=== PATIENT | male | born 1955 | race Caucasian/White ===

== ENCOUNTER 2020-07-05 10:15 | Emergency (ER) | payer BC, SELFPAY ==
[2020-07-05 10:26] VITALS: BP 155/94; PULSE 92; RESP 16; TEMP 36.8; O2SAT 99; BMI 28.3
--- NOTE | 2020-07-05 11:08 | ECG_ITS ---
Test Reason : DIZZINESS Blood Pressure : / mmHG Vent. Rate : 078 BPM Atrial Rate : 078 BPM P-R Int : 176 ms QRS Dur : 106 ms QT Int : 410 ms P-R-T Axes : 049 001 007 degrees QTc Int : 467 ms Normal sinus rhythm Nonspecific ST abnormality Inferior leads Abnormal ECG When compared with ECG of 26-JUL-2012 15:07, No significant change was found Referred By: Sandra Saucedo Electronically Signed By:JOYCE BOB MD
--- NOTE | 2020-07-05 11:08 | XR_ITS ---
EXAMINATION: XR CHEST CLINICAL INFORMATION: Lightheaded COMPARISON: Chest radiographs 05/26/2018, 07/26/2012 TECHNIQUE: Portable upright AP x2 views of the chest was obtained. FINDINGS: The heart is normal in size. The vascularity is normal. The lungs are clear and there is no airspace consolidation or definite groundglass opacity. The costophrenic sulci are clear. The hilar and mediastinal contours are unremarkable. No visible acute bony abnormality. XR/XR chest 1V IMPRESSION: Unremarkable examination.
--- NOTE | 2020-07-05 11:28 | ED_ITS ---
HPI - General Adult General Chief complaint: General Medical Stated complaint: DIZZYNESS Time Seen by Provider: 07/05/20 10:57 Source: patient History of Present Illness HPI narrative: 64-year-old male with a past medical history of cirrhosis, arthritis, presenting to ED complaining of sudden onset lightheadedness at 9:30 a.m. with associated upper chest discomfort. Reports since feeling like he was going to pass out. Admits symptoms improved at present, denies lightheadedness now. Denies headache, vision changes, SOB, cough, abdominal pain, nausea / vomi ting, numbness /tingling, falls Onset (ago): hour(s) Related Data Allergies Allergy/AdvReac Type Severity Reaction Status Date / Time codeine [CODEINE] Allergy Unknown NOT SURE , Unverified 05/31/20 16:07 loopy penicillin V Allergy Unknown diarrhea Unverified 05/15/20 00:00 Penicillins [PENICILLINS] Allergy Unknown C-DIFF Unverified 05/31/20 16:07 pseudoephedrine Allergy Unknown HEART Unverified 05/31/20 16:07 [PSEUDOEPHEDRINE] PALPITATIONS BANDAIDS Allergy Unknown RASH Uncoded 05/31/20 16:07 Vicodin Allergy Unknown vomiting Uncoded 04/13/20 00:00 Review of Systems Review of Systems: Constitutional: No Weight loss, No Fever, No Chills ENT/Mouth: No sore throat, No Rhinorrhea Eyes: No Eye Pain, No Vision Changes Cardiovascular: +Chest Pain, No SOB, No Dyspnea on Exertion, No Edema, No Palpitations Respiratory: No Cough, No Sputum, No Wheezing, No Dyspnea Gastrointestinal: No Nausea, No Vomiting, No Diarrhea, No Constipation, No Abdominal pain Musculoskeletal: No joint pain, No Myalgias, No Joint Swelling Skin: No Skin Lesions, No rash Neuro: No Weakness, No Numbness, No Paresthesias, No Loss of Consciousness,+ lightheadedness, No Headache Yes all other systems are reviewed and are negative Neurologic: Denies Sensory deficit (Neuro) [facility] Past Medical History Attestation statement: The following information was validated with the patient. Medical History (Updated 07/05/20 @ 15:53 by LIZ Leahy) Arthritis Cirrhosis Diarrhea Social History Social History Alcohol intake: former Smoking Status: Former smoker Use of substances other than those prescribed or required for medical reasons: No Advance Directives: No Advance Directives Information Provided: No Physical Exam Vital Signs: Vital Signs: Vital Signs Temp Pulse Resp BP Pulse Ox 07/05/20 12:09 85 153/84 H 07/05/20 12:08 88 144/86 H 07/05/20 10:26 98.2 F 92 16 155/94 H 99 Body Mass Index 28.3 Const: General: cooperative, healthy appearing and anxious Orientation/consciousness: patient oriented x3 Limitations: no limitations HENMT: Head: Yes normal to inspection Ears: hearing grossly normal bilaterally General nose exam: Normal external nose present Face and sinus: Yes normal facial exam Eyes: General: appearance normal, both eyes and all related structures EOM: EOMs intact bilaterally Neck: Neck: Yes normal visual inspection and Yes no meningeal signs Resp: Effort & Inspection: normal respiratory effort Auscultation: clear to auscultation bilaterally, no crackles, no rales and no rhonchi Cardio: Rate: regular rate Heart sounds: S1 normal heart sound present and S2 normal heart sound present GI: Inspection: Yes normal to inspection Palpation (GI): Soft to palpation, nontender, no guarding and not rigid Skin: Rashes: no rashes Wounds: no wounds Neuro: General: patient oriented x3, tone normal, moves all extremities, no meningeal signs, no focal motor deficits and CN's II-XI intact bilaterally Gait exam (Neuro): Normal gait present Sensory Exam: No Sensory deficit (Neuro) Extrem: General: Yes normal to inspection Course Course Course Narrative: -1242-- labs unremarkable. Initial troponin 4 > will obtain 3 hour repeat UA negative, CXR unremarkable - orthostatics negative, however patient very symptomatic > additional 500 cc IVF ordered and Meclizine -1256-- ambulate patient in the ED with steady gait. Denied lightheadedness / dizziness. No ataxia - patient requesting COVID-19 testing. Will order prior to DC -1521-- repeat troponin 7.3> greater than 50% delta> cardiology consulted - spoke to Cardiology, Dr. Lewis do not patient with acute ACS. Patient asymptomatic now in the ED. Has been ambulating without symptoms Worrisome signs and symptoms and strict return precautions discussed with patient including very close follow-up with his PCP. Patient verbalized understanding feel safe for discharge home Medical Decision Making [facility] Narrative Medical decision making narrative: 64-year-old male with a past medical history of cirrhosis, arthritis, presenting to ED complaining of sudden onset lightheadedness at 9:30 a.m. with associated upper chest discomfort. On exam VSS, NAD/ anxious, no focal neuro deficits. Concern for ACS versus metabolic/infectious etiology vs anxiety. Low concern for PE/ICH or CVA plan: EKG, labs, UA, orthostatics, CXR, reassess Lab Data Result diagrams: 07/05/20 11:34 07/05/20 11:34 Labs: Lab Results 07/05/20 07/05/20 07/05/20 Range/Units 11:33 11:34 11:34 WBC 5.7 (4.8-10.8) X10*3/uL RBC 5.47 (4.60-5.80) X10*6/uL Hgb 15.3 (14.0-18.0) g/dl Hct 46.4 (42-52) % MCV 84.8 (80-98) fL MCH 28.0 (27.0-33.0) pg MCHC 33.0 (31.0-36.0) g/dl RDW 14.5 (11.0-16.0) % Plt Count 224 (160-400) X10*3/uL MPV 9.2 L (9.4-12.4) fL Immature Gran % (Auto) 0.2 (0.0-0.4) % Neut % (Auto) 70.0 (45-73) % Lymph % (Auto) 18.2 L (20-40) % [place] % (Auto) 9.7 (2-11) % Eos % (Auto) 1.4 (0-4) % Baso % (Auto) 0.5 (0-2) % Lymph # (Auto) 1.0 L (1.2-4.9) X10*3/uL [place] # (Auto) 0.6 (0.1-1.2) X10*3/uL Eos # (Auto) 0.1 (0.0-0.4) X10*3/uL Baso # (Auto) 0.0 (0.0-0.2) X10*3/uL Abs Immat Gran (auto) 0.01 (0.00-0.03) X10*3/uL Absolute Neuts (auto) 4.0 (2.0-8.3) X10*3/uL Absolute Nucleated RBC 0.000 (0.0-0.012) X10*3/uL Nucleated RBC % (auto) 0.0 (0.0-0.2) /100WBC Hold Blue Top Sodium 140 (135-145) mmol/L Potassium 3.8 (3.3-5.1) mmol/l Chloride 105 (96-108) mmol/L Carbon Dioxide 28 (22-29) mmol/L Anion Gap 11 L (12-20) BUN 9 (9-16) mg/dL Creatinine 0.74 (0.5-1.4) mg/dL Estim Creat Clear Calc 115.4 Estimated GFR > 60 Random Glucose 108 (60-115) mg/dL Calcium 8.8 (8.4-10.2) mg/dL Magnesium 2.0 (1.6-2.6) mg/dL Total Bilirubin 0.5 (0.0-1.0) mg/dL Direct Bilirubin 0.2 (0.0-0.5) mg/dL AST 16 (5-37) U/L ALT 12 (0-40) U/L Alkaline Phosphatase 60 (39-117) U/L Troponin I High Sens (<3.5-35.0) ng/L Total Protein 6.9 (6.5-8.0) g/dL Albumin 4.0 (3.5-5.0) g/dL Urine Color YELLOW Urine Appearance CLEAR Urine pH 7.5 (5.0-8.0) Ur Specific [place] 1.015 (1.005-1.025) Urine Protein NEG (NEG-TRACE) MG/DL Urine Glucose (UA) NEG (NEG) MG/DL Urine Ketones NEG (NEG) MG/DL Urine Blood NEG (NEG) Urine Nitrite NEG (NEG) Ur Leukocyte Esterase NEG (NEG) 07/05/20 07/05/20 07/05/20 Range/Units 11:34 11:35 14:29 WBC (4.8-10.8) X10*3/uL RBC (4.60-5.80) X10*6/uL Hgb (14.0-18.0) g/dl Hct (42-52) % MCV (80-98) fL MCH (27.0-33.0) pg MCHC (31.0-36.0) g/dl RDW (11.0-16.0) % Plt Count (160-400) X10*3/uL MPV (9.4-12.4) fL Immature Gran % (Auto) (0.0-0.4) % Neut % (Auto) (45-73) % Lymph % (Auto) (20-40) % [place] % (Auto) (2-11) % Eos % (Auto) (0-4) % Baso % (Auto) (0-2) % Lymph # (Auto) (1.2-4.9) X10*3/uL [place] # (Auto) (0.1-1.2) X10*3/uL Eos # (Auto) (0.0-0.4) X10*3/uL Baso # (Auto) (0.0-0.2) X10*3/uL Abs Immat Gran (auto) (0.00-0.03) X10*3/uL Absolute Neuts (auto) (2.0-8.3) X10*3/uL Absolute Nucleated RBC (0.0-0.012) X10*3/uL Nucleated RBC % (auto) (0.0-0.2) /100WBC Hold Blue Top SEE NOTE Sodium (135-145) mmol/L Potassium (3.3-5.1) mmol/l Chloride (96-108) mmol/L Carbon Dioxide (22-29) mmol/L Anion Gap (12-20) BUN (9-16) mg/dL Creatinine (0.5-1.4) mg/dL Estim Creat Clear Calc Estimated GFR Random Glucose (60-115) mg/dL Calcium (8.4-10.2) mg/dL Magnesium (1.6-2.6) mg/dL Total Bilirubin (0.0-1.0) mg/dL Direct Bilirubin (0.0-0.5) mg/dL AST (5-37) U/L ALT (0-40) U/L Alkaline Phosphatase (39-117) U/L Troponin I High Sens 4.0 7.3 D (<3.5-35.0) ng/L Total Protein (6.5-8.0) g/dL Albumin (3.5-5.0) g/dL Urine Color Urine Appearance Urine pH (5.0-8.0) Ur Specific [place] (1.005-1.025) Urine Protein (NEG-TRACE) MG/DL Urine Glucose (UA) (NEG) MG/DL Urine Ketones (NEG) MG/DL Urine Blood (NEG) Urine Nitrite (NEG) Ur Leukocyte Esterase (NEG) Discharge Plan Discharge Clinical Impression: Light-headedness Patient Disposition: Home, Self-Care Instructions: Near Syncope (ED), Lightheadedness (ED) Additional Instructions: your blood work was reassuring today in the ED Your x-ray was negative You need to follow-up with your primary care doctor if her symptoms persist or worsen, you have constant persistent lightheadedness/dizziness, passing out episodes, chest pain, or shortness of breath you need to return to the ED immediately Referrals: Physician,Unknown [Primary Care Provider] - 2 days
[2020-07-05 11:43] LABS: MANUAL DIFF FLAG NO
[2020-07-05 11:44] LABS: Basophils Percent Auto 0.5 % (0-2); Eosinophils Absolute Auto 0.1 X10*3/uL (0.0-0.4); Eosinophils Percent Auto 1.4 % (0-4); Hematocrit 46.4 % (42-52); Hemoglobin 15.3 g/dl (14.0-18.0); Imm Gran Abs Auto 0.01 X10*3/uL (0.00-0.03); Imm Gran Pct Auto 0.2 % (0.0-0.4); Lymphocytes Percent Auto 18.2 % (20-40); Mean Corpuscular Volume 84.8 fL (80-98); Mean Platelet Volume 9.2 fL (9.4-12.4); Monocytes Absolute Auto 0.6 X10*3/uL (0.1-1.2); Monocytes Percent Auto 9.7 % (2-11); Platelet Count 224 X10*3/uL (160-400); Red Blood Count 5.47 X10*6/uL (4.60-5.80); Red Cell Distribution Width 14.5 % (11.0-16.0); White Blood Count 5.7 X10*3/uL (4.8-10.8)
[2020-07-05 11:48] LABS: Glucose Urine UA NEG (NEG); Leukocyte Esterase Urine NEG (NEG); Nitrite Urine NEG (NEG); PH 7.5 (5.0-8.0); Specific Gravity - Urine 1.015 (1.005-1.025); Urine Blood NEG (NEG); Urine Ketones NEG (NEG); Urine Protein NEG (NEG-TRACE)
[2020-07-05 11:52] LABS: Appearance Urine CLEAR; Color Urine YELLOW
[2020-07-05] MEDS: 0.9 % Sodium Chloride 1,000 ML 999 ML IVCONT (11:53)
[2020-07-05 12:05] LABS: Alanine Aminotransferase 12 U/L (0-40); Alkaline Phosphatase 60 U/L (39-117); Anion Gap 11 (12-20); Aspartate Amino Transferase 16 U/L (5-37); Bilirubin Direct 0.2 mg/dL (0.0-0.5); Bilirubin Total 0.5 mg/dL (0.0-1.0); Blood Urea Nitrogen 9 mg/dL (9-16); Calcium 8.8 mg/dL (8.4-10.2); Carbon Dioxide 28 mmol/L (22-29); Chloride 105 mmol/L (96-108); Creatinine Clr Calc Pharmacy 115.4; Estimated Glomerular Filt Rate > 60; Glucose Random 108 mg/dL (60-115); Potassium 3.8 mmol/l (3.3-5.1); Sodium 140 mmol/L (135-145); Total Protein 6.9 g/dL (6.5-8.0)
[2020-07-05 12:08] VITALS: BP 144/86; PULSE 88
[2020-07-05 12:09] VITALS: BP 153/84; PULSE 85
[2020-07-05] MEDS: 0.9 % Sodium Chloride 500 ML 999 ML IVCONT (12:55)
[2020-07-05] MEDS: Meclizine HCl 25 MG TABLET PO (13:00)
[2020-07-05 15:03] LABS: Troponin-I High Sensitivity 7.3 ng/L (<3.5-35.0)
[2020-07-05 15:56] VITALS: PULSE 75; RESP 18
== END 2020-07-05 16:09 | disposition home or self-care (01) ==
PROVIDERS: Physician Assistant; Emergency Provider Emergency Medicine
DX: R42 Dizziness and giddiness (principal); R07.9 Chest pain, unspecified; Z20.828 Contact with and (suspected) exposure to other viral communicable diseases; Z87.891 Personal history of nicotine dependence; Z79.899 Other long term (current) drug therapy
CPT/HCPCS: 36415; 71045; 80048; 80076; 81003; 83735; 84484; 85025; 87635; 93005; 96360; 99284

== ENCOUNTER → 2020-11-14 14:47 | Outpatient (BNVA) | payer BC, SELFPAY | PROVIDERS: PCP Internal Medicine; Visit Provider Nurse Practitioner ==

== ENCOUNTER 2020-11-23 08:11 | Outpatient (REF) | payer BC, SELFPAY ==
--- NOTE | ~2020-11-23 | US_ITS ---
EXAMINATION: US ABDOMEN COMPLETE CLINICAL INFORMATION: Fatty change of liver, not elsewhere classified. COMPARISON: Ultrasound abdomen complete 04/19/2020. Ultrasound abdomen limited 07/21/2019. TECHNIQUE: Real-time imaging of the abdominal viscera. FINDINGS: PANCREAS: Normal. ABDOMINAL AORTA: The proximal, mid, and distal segments are normal in caliber. INFERIOR VENA CAVA: Visualized portions are normal. LIVER: Normal. The liver is normal in size. The liver contour is normal. Diffuse increased echogenicity.. No focal hepatic lesion. There is no intrahepatic biliary duct dilatation seen. GALLBLADDER: Surgically absent. COMMON BILE DUCT: Normal in caliber measuring 0.6 cm in diameter. RIGHT KIDNEY: Normal. No hydronephrosis. No renal calculi or focal parenchymal lesions. The kidney measures 14.3 cm in maximum dimension. LEFT KIDNEY: Normal. No hydronephrosis. No renal calculi or focal parenchymal lesions. The kidney measures 13.9 cm in maximum dimension. SPLEEN: Normal. The spleen measures 11.5 cm in maximum dimension. FREE FLUID: None. US/US abdomen complete IMPRESSION: 1. Increased hepatic echogenicity suggesting hepatic steatosis. No focal lesions. No intrahepatic biliary duct dilatation. 2. Status postcholecystectomy.
[2020-11-23 11:03] LABS: MANUAL DIFF FLAG NO
[2020-11-23 11:14] LABS: Basophils Absolute Auto 0.1 X10*3/uL (0.0-0.2); Basophils Percent Auto 0.9 % (0-2); Eosinophils Absolute Auto 0.2 X10*3/uL (0.0-0.4); Eosinophils Percent Auto 2.2 % (0-4); Hematocrit 48.1 % (42-52); Hemoglobin 15.7 g/dl (14.0-18.0); Imm Gran Abs Auto 0.01 X10*3/uL (0.00-0.03); Imm Gran Pct Auto 0.1 % (0.0-0.4); Lymphocytes Absolute Auto 1.8 X10*3/uL (1.2-4.9); Lymphocytes Percent Auto 27.6 % (20-40); Mean Corpuscular HGB Conc 32.6 g/dl (31.0-36.0); Mean Corpuscular Hemoglobin 28.3 pg (27.0-33.0); Mean Corpuscular Volume 86.8 fL (80-98); Mean Platelet Volume 9.7 fL (9.4-12.4); Monocytes Absolute Auto 0.6 X10*3/uL (0.1-1.2); Monocytes Percent Auto 8.7 % (2-11); Neutrophils Percent Auto 60.5 % (45-73); Platelet Count 243 X10*3/uL (160-400); Red Blood Count 5.54 X10*6/uL (4.60-5.80); Red Cell Distribution Width 13.9 % (11.0-16.0); White Blood Count 6.7 X10*3/uL (4.8-10.8)
[2020-11-23 11:33] LABS: Alanine Aminotransferase 12 U/L (0-40); Albumin Level 4.2 g/dL (3.5-5.0); Alkaline Phosphatase 62 U/L (39-117); Anion Gap 10 (12-20); Aspartate Amino Transferase 14 U/L (5-37); Bilirubin Total 0.6 mg/dL (0.0-1.0); Blood Urea Nitrogen 11 mg/dL (9-16); Calcium 8.7 mg/dL (8.4-10.2); Carbon Dioxide 31 mmol/L (22-29); Chloride 104 mmol/L (96-108); Cholesterol 153 mg/dL; Estimated Glomerular Filt Rate > 60; Glucose Random 92 mg/dL (60-115); HDL Cholesterol 46 mg/dL; LDL Cholesterol Calculated 100 mg/dl; Potassium 4.2 mmol/L (3.3-5.1); Sodium 141 mmol/L (135-145); Total Protein 7.2 g/dL (6.5-8.0); Triglycerides 39 mg/dL
[2020-11-27 14:17] LABS: Alpha Fetoprotein 1.1 ng/mL (<6.1)
== END 2020-11-23 08:12 | disposition home or self-care (01) ==
LOC: HO.HMGCX 08:11
PROVIDERS: PCP Internal Medicine; Visit Provider Nurse Practitioner
DX: K76.0 Fatty (change of) liver, not elsewhere classified (principal); D12.6 Benign neoplasm of colon, unspecified; F10.11 Alcohol abuse, in remission; I10 Essential (primary) hypertension
CPT/HCPCS: 36415; 76700; 80053; 80061; 82105; 85025

== ENCOUNTER 2020-12-12 08:29 | Day surgery (SDC) | payer BC, SELFPAY ==
[2020-12-06 14:09] VITALS: BMI 29.7
[2020-12-06 14:38] VITALS: BMI 29.8
--- NOTE | 2020-12-11 08:51 | P.CONAN_ITS ---
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) GERD (gastroesophageal reflux disease) (Acute) Essential (primary) hypertension (Acute) Past Medical History Medical History Arthritis Cirrhosis Diarrhea Gastropathy GERD (gastroesophageal reflux disease) Hepatic steatosis History of ETOH abuse Schatzki's ring Family History Family History (Updated 11/14/20 @ 15:03 by MARINO Ny) Father Lung cancer Mother Thyroid condition HTN (hypertension) Lung cancer CVD (cardiovascular disease) Sister Breast cancer Son Pulmonary embolism Blood clot in vein Surgical History Surgical History History of back surgery History of esophagogastroduodenoscopy (EGD) Hx of cholecystectomy Hx of colonoscopy Hx of eye surgery Social History Social History (Updated 11/14/20 @ 15:05 by MARINO Ny) Alcohol intake: former Smoking Status: Never smoker Advance Directives: No Advance Directives Information Provided: No Advance Directives on File: No Meds Allergies Allergy/AdvReac Type Severity Reaction Status Date / Time codeine [CODEINE] Allergy Unknown NOT SURE , Verified 12/06/20 14:35 loopy Penicillins [PENICILLINS] Allergy Unknown C-DIFF Verified 12/06/20 14:35 pseudoephedrine Allergy Unknown HEART Verified 12/06/20 14:35 [PSEUDOEPHEDRINE] PALPITATIONS BANDAIDS Allergy Unknown RASH Uncoded 12/06/20 14:35 Vicodin Allergy Unknown vomiting Uncoded 12/06/20 14:35 Home Medications Medication Instructions Recorded Confirmed Last Taken Type cyclosporine 0.05 % eye drops in a 1 drp OPHTHALMIC (EYE) Q12H 11/14/20 12/06/20 Unknown History dropperette sucralfate 1 gram tablet 1 g PO BID 11/14/20 12/06/20 Unknown History Exam Exam Date and Time: December 11, 2020 0851 Height,Weight and Vital Signs: Height 5 ft 11 in Weight 97 kg Pertinent Lab Results Pertinent Lab Results: Laboratory Tests 11/23/20 11/23/20 08:17 08:17 WBC 6.7 Hgb 15.7 Hct 48.1 Plt Count 243 Sodium 141 Potassium 4.2 Chloride 104 Carbon Dioxide 31 H BUN 11 Creatinine 0.74 Calcium 8.7 Total Bilirubin 0.6 AST 14 ALT 12 Alkaline Phosphatase 62 Total Protein 7.2 Albumin 4.2 Narrative Narrative: EKG 06/2020 Vent. Rate : 078 BPM Atrial Rate : 078 BPM P-R Int : 176 ms QRS Dur : 106 ms QT Int : 410 ms P-R-T Axes : 049 001 007 degrees QTc Int : 467 ms Normal sinus rhythm Nonspecific ST abnormality Inferior leads Abnormal ECG When compared with ECG of 26-JUL-2012 15:07, No significant change was found Assessment and Plan Assessment Anesthesia Assessment: Chart Reviewed Documented by User: Meggan Negro 12/12/20 09:26 [facility] Past Medical History Medical History Arthritis Cirrhosis Diarrhea Gastropathy GERD (gastroesophageal reflux disease) Hepatic steatosis History of ETOH abuse Schatzki's ring Family History Family History (Updated 11/14/20 @ 15:03 by MARINO Ny) Father Lung cancer Mother Thyroid condition HTN (hypertension) Lung cancer CVD (cardiovascular disease) Sister Breast cancer Son Pulmonary embolism Blood clot in vein Surgical History Surgical History History of back surgery History of esophagogastroduodenoscopy (EGD) Hx of cholecystectomy Hx of colonoscopy Hx of eye surgery Social History Social History (Updated 11/14/20 @ 15:05 by MARINO Ny) Alcohol intake: former Smoking Status: Never smoker Advance Directives: No Advance Directives Information Provided: No Advance Directives on File: No Meds Allergies Allergy/AdvReac Type Severity Reaction Status Date / Time codeine [CODEINE] Allergy Unknown NOT SURE , Verified 12/06/20 14:35 loopy Penicillins [PENICILLINS] Allergy Unknown C-DIFF Verified 12/06/20 14:35 pseudoephedrine Allergy Unknown HEART Verified 12/06/20 14:35 [PSEUDOEPHEDRINE] PALPITATIONS BANDAIDS Allergy Unknown RASH Uncoded 12/06/20 14:35 Vicodin Allergy Unknown vomiting Uncoded 12/06/20 14:35 Home Medications Medication Instructions Recorded Confirmed Last Taken Type cyclosporine 0.05 % eye drops in a 1 drp OPHTHALMIC (EYE) Q12H 11/14/20 12/06/20 Unknown History dropperette sucralfate 1 gram tablet 1 g PO BID 11/14/20 12/06/20 Unknown History Exam Airway Mallampati Class: III (Multiple caps, top front) TM Dist: >3cm Neck ROM: Full Heart: RRR Lungs: CTA BL Assessment and Plan Assessment Anesthesia Assessment: Anesthesia Plan Discussed and Chart Reviewed Final Anesthetic Review NPO: Yes (Sip water with meds) ASA Class: III Final Preanesthetic Review: No Changes in Pt Med Stat and Consent Obtained/Reviewed Patient Risk: Intermediate Procedure Risk: Intermediate Anesthetic Plan Anesthetic Plan: MAC: Disposition: Standard PACU
[2020-12-12 08:56] VITALS: BP 149/85; PULSE 94; RESP 16; TEMP 36.2; O2SAT 98
[2020-12-12] MEDS: Lactated Ringers 1,000 ML 50 ML IV (09:07)
--- NOTE | 2020-12-12 09:08 | MHC.SHP ---
Pre-Procedural Eval Section B Chief Complaint: TA of Colon Relevant Family History (Specify if Yes): No Relevant Social History: None Present Medications: see Short Stay Collaborative assessment Medical History: Significant History (Arthritis Cirrhosis Diarrhea Gastropathy GERD (gastroesophageal reflux disease) Hepatic steatosis History of ETOH abuse Schatzki's ring) History of Previous Operations: Relevant previous surgery/procedure and date(s) (History of back surgery History of esophagogastroduodenoscopy (EGD) Hx of cholecystectomy Hx of colonoscopy Hx of eye surgery) Allergies: Allergies Allergy/AdvReac Type Severity Reaction Status Date / Time codeine [CODEINE] Allergy Unknown NOT SURE , Verified 12/06/20 14:35 loopy Penicillins [PENICILLINS] Allergy Unknown C-DIFF Verified 12/06/20 14:35 pseudoephedrine Allergy Unknown HEART Verified 12/06/20 14:35 [PSEUDOEPHEDRINE] PALPITATIONS BANDAIDS Allergy Unknown RASH Uncoded 12/06/20 14:35 Vicodin Allergy Unknown vomiting Uncoded 12/06/20 14:35 Review of Systems Sugical H&P ROS: Negative: Constitution, Cardiovascular, Respiratory, Neurological, Psychiatric, Hem-Onc, Allergic/Immunologic, Gastrointestinal, Genitourinary, Musculoskeletal, Integumentary, Endocrine and Eyes/Ears/Nose/Throat Exam Surgical H&P Exam: Normal: HEENT, Normal: Heart, Normal: Lungs, Normal: Extremities, Normal: Abdomen, Normal: Skin and Normal: Neurological Plan I have reviewed the history and physical and performed a pertinent physical examination on my patient. No changes have occurred unless specified.
--- NOTE | 2020-12-12 09:19 | PM.OP ---
Brief Operative Note Date of Service: 12/12/20 Pre-op diagnosis: hx of polyps Post-op diagnosis: same Procedure: see op note Surgeon: Nicolas Kan MD Anesthesia: MAC Estimated blood loss (mL): 0 Condition: stable Disposition: PACU
--- NOTE | 2020-12-12 09:20 | P.OP_ITS ---
Operative Note Operative Note Date of Service: 12/12/20 Narrative: Operative Information Procedure Description: Colonoscopy COLONOSCOPY Instrument: Olympus variable stiffness ADULT scope 190L Colonoscopy Monitoring: Vital signs and clinical assessment, continuous EKG monitoring, Pulse oximetry, Carbon Dioxide monitoring and blood pressure monitoring were done throughout the procedure. Colon withdrawal time was 15 minutes. Procedure: The patient was placed in the left lateral decubitis position and pre-procedure medications were administered. After a digital rectal examination of the ano-rectum, the video colonoscope was inserted into the rectum and advanced through the colon to the cecum/TI. The colonoscope was slowly withdrawn in a retrograde panoramic fashion and the colon mucosa was carefully examined including a retroflexed view of the rectum. Findings and interventions are described below. Procedure Difficulty:easy Findings: Terminal Ileum-normal Cecum: 5-7 mm sessile polyp removed with biopsy Ascending Colon: x 2 sessile polyps 8-9 mm removed with forceps Transverse Colon - x 3 sessile polyps, 8-12 mm, x 1 removed with cold snare and 2 removed with forceps Descending Colon: 8-10 mm sessile polyp removed with cold snare Sigmoid Colon: diverticulosis, mild Rectum: Retroflexion with small to moderate sized internal hemorrhoids, grade I, 7-8 mm sessile polyp removed with forceps Anorectum - normal Colon preparation: [place] Bowel Preparation Scale Right colon; 2 Transverse colon: 3 Left colon; 3 (0 = Unprepared colon segment with mucosa not seen due to solid stool that cannot be cleared. 1 = Portion of mucosa of the colon segment seen, but other areas of the colon segment not well seen due to staining, residual stool and/or opaque liquid. 2 = Minor amount of residual staining, small fragments of stool and/or opaque liquid, but mucosa of colon segment seen well. 3 = Entire mucosa of colon segment seen well with no residual staining, small fragments of stool or opaque liquid) Impression and Post Procedure Diagnosis: polyps internal hemorrhoids diverticular disease Plan: High fiber diet leaflet Avoid straining at stool, epsom salts and sitz bath, anusol supps or cream Repeat Colonoscopy in 2-3 years or earlier if clinically indicated Above findings were reviewed with the patient and relevant handouts were provided if indicated.
[2020-12-12 10:11] VITALS: BP 101/60; PULSE 70; RESP 16; TEMP 36.4; O2SAT 92
[2020-12-12 10:16] VITALS: O2SAT 91
[2020-12-12 10:26] VITALS: BP 100/59; PULSE 90; RESP 18; O2SAT 96
[2020-12-12 10:38] VITALS: BP 135/91; PULSE 84; RESP 20; TEMP 37.6; O2SAT 96
== END 2020-12-12 11:10 | disposition home or self-care (01) ==
PROVIDERS: PCP Internal Medicine; Visit Provider Internal Medicine Gastroenterology
PROC: 0DJD8ZZ Inspection of Lower Intestinal Tract, Via Natural or Artificial Opening Endoscopic (ICD-10-PCS; CPT 45378; principal; 2020-12-12 11:40)
DX: Z12.11 Encounter for screening for malignant neoplasm of colon (principal); Z86.010 Personal history of colon polyps; D12.0 Benign neoplasm of cecum; D12.2 Benign neoplasm of ascending colon; D12.3 Benign neoplasm of transverse colon; D12.4 Benign neoplasm of descending colon; K62.1 Rectal polyp; K57.30 Diverticulosis of large intestine without perforation or abscess without bleeding; K64.0 First degree hemorrhoids; K21.9 Gastro-esophageal reflux disease without esophagitis; K74.60 Unspecified cirrhosis of liver; K90.89 Other intestinal malabsorption; K31.9 Disease of stomach and duodenum, unspecified; F10.11 Alcohol abuse, in remission; K70.30 Alcoholic cirrhosis of liver without ascites; K76.0 Fatty (change of) liver, not elsewhere classified; Z79.899 Other long term (current) drug therapy; Z88.0 Allergy status to penicillin; Z88.8 Allergy status to other drugs, medicaments and biological substances; Z90.49 Acquired absence of other specified parts of digestive tract
CPT/HCPCS: 45385; 45380; 88305

== ENCOUNTER → 2021-01-09 11:18 | Outpatient (BNVA) | payer BC, SELFPAY | PROVIDERS: PCP Internal Medicine; Visit Provider Nurse Practitioner ==

== ENCOUNTER → 2021-02-19 08:55 | Outpatient (BNVA) | payer BC, SELFPAY | PROVIDERS: PCP Internal Medicine; Referring Provider Internal Medicine; Visit Provider Internal Medicine Gastroenterology ==

== ENCOUNTER 2021-05-14 19:23 | Emergency (ER) | payer BC, SELFPAY ==
[2021-05-14 19:25] VITALS: BP 184/83; PULSE 76; RESP 16; TEMP 36.8; O2SAT 94; BMI 29.8
--- NOTE | 2021-05-14 19:54 | PC.NURSE ---
spider bite to left index finger. brusing noted. states baby spiders were on window when he was lifting it.
--- NOTE | 2021-05-14 21:13 | ED_ITS ---
HPI - Animal Bite General Chief Complaint: Animal Bite Stated Complaint: spider bite Time Seen by Provider: 05/14/21 20:48 Source: patient Mode of arrival: ambulatory History of Present Illness HPI narrative: 65-year-old male with a past medical history of arthritis, cirrhosis, diarrhea, GERD, presenting to the ED complaining of spider bite to left index finger s/p picking up something and multiple small spider coming out from underneath it around 2:30 p.m. reports pain to index finger and erythema/bruising. Also reports paresthesias. Denies weakness, fever, chills Patient did not get good visual avoid spider looked like MD complaint: animal bite Related Data Home Medications Medication Instructions Recorded Confirmed cyclosporine 0.05 % eye drops in a 1 drp OPHTHALMIC (EYE) Q12H 11/14/20 02/19/21 dropperette (Restasis) sucralfate 1 gram tablet 1 g PO BID 11/14/20 02/19/21 fluoride (sodium) 1.1 % dental gel DENTAL 02/19/21 02/19/21 mupirocin 2 % topical ointment TOPICAL BID 02/19/21 02/19/21 tadalafil 5 mg tablet 5 mg PO DAILY 02/19/21 02/19/21 Previous Rx's Medication Instructions Recorded bisacodyl 5 mg tablet,delayed 10 mg PO BEDTIME 2 Days #4 tab 11/14/20 release (Dulcolax (bisacodyl)) pantoprazole 40 mg tablet,delayed 40 mg PO BID 30 Days #60 tab 11/14/20 release polyethylene glycol 3350 17 238 g PO ONCE 1 Days #238 g 11/14/20 gram/dose oral powder (Miralax) metoprolol succinate 50 mg 50 mg PO DAILY #90 tab 12/01/20 tablet,extended release 24 hr fluticasone furoate 27.5 2 spray INTRANASAL DAILY #47.4 ml 02/19/21 mcg/actuation nasal spray,suspension (Flonase Sensimist) loratadine 10 mg tablet (Claritin) 10 mg PO DAILY #60 tab 02/19/21 lisinopril 20 mg tablet 20 mg PO BID #180 tab 03/11/21 amlodipine 5 mg tablet 5 mg PO DAILY #90 tab 04/18/21 amlodipine 5 mg tablet 5 mg PO DAILY #14 tab 04/19/21 doxycycline hyclate 100 mg tablet 100 mg PO BID 7 Days #14 tab 05/14/21 Allergies Allergy/AdvReac Type Severity Reaction Status Date / Time codeine [CODEINE] Allergy Unknown NOT SURE , Verified 02/19/21 09:05 loopy Penicillins [PENICILLINS] Allergy Unknown C-DIFF Verified 02/19/21 09:05 pseudoephedrine Allergy Unknown HEART Verified 02/19/21 09:05 [PSEUDOEPHEDRINE] PALPITATIONS BANDAIDS Allergy Unknown RASH Uncoded 12/06/20 14:35 Vicodin Allergy Unknown vomiting Uncoded 12/06/20 14:35 Review of Systems Review of Systems: Constitutional: No Fever, No Chills ENT/Mouth: No Ear Pain, No Nasal Congestion, No sore throat, No Rhinorrhea, No Swallowing Difficulty Cardiovascular: No Chest Pain, No SOB Respiratory: No Cough, No Sputum, No Wheezing Gastrointestinal: No Nausea, No Vomiting, No Abdominal pain Musculoskeletal: + joint pain, No Myalgias, No Joint Swelling Skin: + Skin Lesions, No rash Neuro: No Weakness, No Numbness, No Paresthesias Yes all other systems are reviewed and are negative [facility] Past Medical History Attestation statement: The following information was validated with the patient. Medical History Arthritis Cirrhosis Diarrhea Gastropathy GERD (gastroesophageal reflux disease) Hepatic steatosis History of ETOH abuse Schatzki's ring Surgical History History of back surgery History of esophagogastroduodenoscopy (EGD) Hx of cholecystectomy Hx of colonoscopy Hx of eye surgery Family History Family History Father Lung cancer Mother Thyroid condition HTN (hypertension) Lung cancer CVD (cardiovascular disease) Sister Breast cancer Son Pulmonary embolism Blood clot in vein Social History Social History Alcohol intake: former Advance Directives: No Advance Directives Information Provided: Yes Physical Exam Vital Signs: Vital Signs: Last Vital Signs Temp 98.2 F 05/14/21 19:25 Pulse 76 05/14/21 19:25 Resp 16 05/14/21 19:25 BP 184/83 H 05/14/21 19:25 Pulse Ox 94 05/14/21 19:25 Body Mass Index 29.8 Const: General: cooperative and healthy appearing Orientation/consciousness: patient oriented x3 Limitations: no limitations HENMT: Head: Yes normal to inspection Ears: hearing grossly normal bilaterally General nose exam: Normal external nose present Face and si nus: Yes normal facial exam Eyes: General: appearance normal, both eyes and all related structures EOM: EOMs intact bilaterally Neck: Neck: Yes normal visual inspection Resp: Effort & Inspection: normal respiratory effort and no respiratory distress Cardio: Rate: regular rate Heart sounds: S1 normal heart sound present and S2 normal heart sound present Skin: General skin exam: no fluctuance Neuro: General: patient oriented x3 Gait exam (Neuro): Normal gait present Extrem: Other: Refer to image above. Ecchymotic/erythematous area noted to palmar aspect of left index finger. No warmth. No fluctuance/induration. No streaking. FROM intact to all digits/hand. Finger to thumb opposition intact. Lesion is not circumferential MDM - Animal Bite MDM Narrative Medical decision making narrative: 65-year-old male with a past medical history of arthritis, cirrhosis, diarrhea, GERD, presenting to the ED complaining of spider bite to left index finger s/p picking up something and multiple small spider coming out from underneath it around 2:30 p.m. On exam VSS, NAD/well- appearing, physical exam as above. Concern for spider bite/early cellulitis. Unlikely abscess at this time Plan: Doxycycline, strict return precautions discussed Discharge Plan Discharge Clinical Impression: Spider bite Qualifiers: Encounter type: initial encounter Injury intent: accidental or unintentional Qualified Code(s): T63.301A - Toxic effect of unspecified spider venom, accidental (unintentional), initial encounter Patient Disposition: Home, Self-Care Additional Instructions: Doxycycline as an antibiotic, please take as prescribed Keep a close eye on the area if it is spreading, you have red streaking, there is drainage from the area, or you have fever, or the center turns black please return to the ED immediately Prescriptions: New doxycycline hyclate 100 mg tablet 100 mg PO BID 7 Days Qty: 14 RF: 0 No Action metoprolol succinate 50 mg tablet extended release 24 hr 50 mg PO DAILY Qty: 90 RF: 3 lisinopril 20 mg tablet 20 mg PO BID Qty: 180 RF: 3 amlodipine 5 mg tablet 5 mg PO DAILY Qty: 90 RF: 3 amlodipine 5 mg tablet 5 mg PO DAILY Qty: 14 RF: 0 sucralfate 1 gram tablet 1 g PO BID RF: 0 Restasis 0.05 % dropperette 1 drp ophthalmic (eye) Q12H RF: 0 pantoprazole 40 mg tablet,delayed release (DR/EC) 40 mg PO BID 30 Days Qty: 60 RF: 6 polyethylene glycol 3350 [Miralax] 17 gram/dose powder 238 g PO ONCE 1 Days Qty: 238 RF: 0 bisacodyl [Dulcolax (bisacodyl)] 5 mg tablet,delayed release (DR/EC) 10 mg PO BEDTIME 2 Days Qty: 4 RF: 0 tadalafil 5 mg tablet 5 mg PO DAILY RF: 0 mupirocin 2 % ointment topical BID RF: 0 fluoride (sodium) 1.1 % gel dental RF: 0 Flonase Sensimist 27.5 mcg/actuation spray,suspension 2 spray intranasal DAILY Qty: 47.4 RF: 0 loratadine [Claritin] 10 mg tablet 10 mg PO DAILY Qty: 60 RF: 2 Referrals: Clari Duong MD [Primary Care Provider] - 3 days Interventions: ED Discharge Assessment Last Done: 05/14/21 21:39 Discharge Date/Time: 05/14/21 21:40
== END 2021-05-14 21:40 | disposition home or self-care (01) ==
PROVIDERS: Emergency Provider Internal Medicine; PCP Internal Medicine
DX: T63.301A Toxic effect of unspecified spider venom, accidental (unintentional), initial encounter (principal); Y99.9 Unspecified external cause status; I10 Essential (primary) hypertension
CPT/HCPCS: 99283

== ENCOUNTER → 2021-07-08 09:31 | Outpatient (BNVA) | payer BC, SELFPAY | PROVIDERS: PCP Internal Medicine; Visit Provider Nurse Practitioner ==

== ENCOUNTER 2021-09-27 10:07 | Outpatient (REF) | payer MEDICARE, SELFPAY ==
[2021-09-27 10:40] LABS: Binax Internal Control QC Valid; Binax Now Covid-19 Ag Positive (Negative); Binax Performed by: HO.BONILM
== END 2021-09-27 10:08 | disposition home or self-care (01) ==
LOC: HO.HMGCLDS 10:07
PROVIDERS: Visit Provider Nurse Practitioner Family
DX: Z13.89 Encounter for screening for other disorder (principal)

== ENCOUNTER 2021-11-26 11:33 | Outpatient (REF) | payer OTHER, SELFPAY ==
--- NOTE | ~2021-11-26 | US_ITS ---
EXAMINATION: US ABDOMEN LIMITED CLINICAL INFORMATION: Fatty change of liver, not elsewhere classified. COMPARISON: Ultrasound abdomen complete 11/23/2020 and 04/19/2020. TECHNIQUE: Real-time imaging of the right upper quadrant abdominal viscera. FINDINGS: PANCREAS: Not well visualized due to bowel gas LIVER: The liver is normal in size. The liver contour is normal. Liver echotexture is increased. No focal hepatic lesion. There is no intrahepatic biliary duct dilatation seen. GALLBLADDER: Surgically absent. COMMON BILE DUCT: Normal in caliber measuring 0.3 cm in diameter. RIGHT KIDNEY: Normal. No hydronephrosis. No renal calculi or focal parenchymal lesions. The kidney measures 14.1 cm in maximum dimension. FREE FLUID: None. US/US abdomen limited IMPRESSION: Echogenic liver probably representing fatty infiltration. Limited visualization of the pancreas.
== END 2021-11-26 11:34 | disposition home or self-care (01) ==
LOC: HO.US 11:33
PROVIDERS: PCP Internal Medicine; Visit Provider Nurse Practitioner
DX: K76.0 Fatty (change of) liver, not elsewhere classified (principal)
CPT/HCPCS: 76705

== ENCOUNTER 2021-12-02 07:56 | Outpatient (REF) | payer OTHER, SELFPAY ==
[2021-12-02 11:53] LABS: Hematocrit 50.2 % (42.0-52.0); Hemoglobin 16.5 g/dl (14.0-18.0); Mean Corpuscular HGB Conc 32.9 g/dl (31.0-36.0); Mean Corpuscular Hemoglobin 28.9 pg (27.0-33.0); Mean Corpuscular Volume 87.9 fL (80.0-98.0); Mean Platelet Volume 9.5 fL (9.4-12.4); Platelet Count 255 X10*3/uL (160-400); Red Blood Count 5.71 X10*6/uL (4.60-5.80); Red Cell Distribution Width 13.9 % (11.0-16.0); White Blood Count 7.4 X10*3/uL (4.8-10.8)
[2021-12-02 12:15] LABS: Alanine Aminotransferase 14 U/L (0-40); Albumin Level 4.2 g/dL (3.5-5.0); Alkaline Phosphatase 66 U/L (39-117); Anion Gap 11 (12-20); Aspartate Amino Transferase 16 U/L (5-37); Bilirubin Direct 0.3 mg/dL (0.0-0.5); Bilirubin Total 0.8 mg/dL (0.0-1.0); Blood Urea Nitrogen 9 mg/dL (9-16); Calcium 9.5 mg/dL (8.4-10.2); Carbon Dioxide 30 mmol/L (22-29); Chloride 105 mmol/L (96-108); Cholesterol 149 mg/dL; Estimated Glomerular Filt Rate > 60; Glucose Fasting 101 mg/dL (60-99); HDL Cholesterol 47 mg/dL; LDL Cholesterol Calculated 91 mg/dl; Sodium 141 mmol/L (135-145); Total Protein 7.5 g/dL (6.5-8.0); Triglycerides 57 mg/dL
[2021-12-09 11:21] LABS: Alpha Fetoprotein 1.7 ng/mL (<6.1)
== END 2021-12-02 07:57 | disposition home or self-care (01) ==
LOC: HO.HMGCLDS 07:56
PROVIDERS: Absent Provider Nurse Practitioner; PCP Internal Medicine; Visit Provider Internal Medicine
DX: K76.0 Fatty (change of) liver, not elsewhere classified (principal); I10 Essential (primary) hypertension
CPT/HCPCS: 36415; 80053; 80061; 80076; 82105; 82248; 85027

== ENCOUNTER → 2022-01-10 09:28 | Outpatient (BNVA) | payer OTHER, SELFPAY | PROVIDERS: PCP Internal Medicine; Visit Provider Nurse Practitioner | DX: Z13.89 Encounter for screening for other disorder (principal) ==

== ENCOUNTER 2022-07-11 14:36 | Outpatient (REF) | payer OTHER, SELFPAY ==
[2022-07-11 17:15] LABS: Alanine Aminotransferase 12 U/L (0-40); Albumin Level 4.2 g/dL (3.5-5.0); Alkaline Phosphatase 68 U/L (39-117); Aspartate Amino Transferase 18 U/L (5-37); Bilirubin Direct 0.3 mg/dL (0.0-0.5); Bilirubin Total 0.7 mg/dL (0.0-1.0); Total Protein 7.2 g/dL (6.5-8.0)
[2022-07-16 13:47] LABS: Alpha Fetoprotein 1.4 ng/mL (<6.1)
== END 2022-07-11 14:37 | disposition home or self-care (01) ==
LOC: HO.HMGCLDS 14:36
PROVIDERS: PCP Internal Medicine; Visit Provider Nurse Practitioner
DX: K76.0 Fatty (change of) liver, not elsewhere classified (principal)
CPT/HCPCS: 36415; 80076; 82105

== ENCOUNTER 2022-08-04 14:05 | Outpatient (REF) | payer OTHER, SELFPAY ==
--- NOTE | ~2022-08-04 | US_ITS ---
EXAMINATION: US ABDOMEN COMPLETE CLINICAL INFORMATION: Fatty change of liver, not elsewhere classified. COMPARISON: Limited abdominal ultrasound 11/26/2021. Ultrasound abdomen complete 11/23/2020. Limited exam due to bowel gas. TECHNIQUE: Real-time imaging of the abdominal viscera. FINDINGS: PANCREAS: Not well visualized due to bowel gas. ABDOMINAL AORTA: The distal abdominal aorta is normal in caliber. Proximal and mid abdominal aorta are not well visualized due to bowel gas. INFERIOR VENA CAVA: Not well visualized. LIVER: The liver is normal in size. The liver contour is normal. Liver echotexture is increased. No focal hepatic lesion. There is no intrahepatic biliary duct dilatation seen. GALLBLADDER: Surgically absent. COMMON BILE DUCT: Normal in caliber measuring 0.7 cm in diameter. RIGHT KIDNEY: Normal. No hydronephrosis. No renal calculi or focal parenchymal lesions. The kidney measures 13.4 cm in maximum dimension. LEFT KIDNEY: Normal. No hydronephrosis. No renal calculi or focal parenchymal lesions. The kidney measures 13.1 cm in maximum dimension. SPLEEN: Normal. The spleen measures 11.1 cm in maximum dimension. FREE FLUID: None. US/US abdomen complete IMPRESSION: Limited exam. Echogenic liver probably representing fatty infiltration.
== END 2022-08-04 14:06 | disposition home or self-care (01) ==
LOC: HO.HMGCX 14:05
PROVIDERS: PCP Internal Medicine; Visit Provider Nurse Practitioner
DX: K76.0 Fatty (change of) liver, not elsewhere classified (principal); N20.0 Calculus of kidney
CPT/HCPCS: 76700

== ENCOUNTER → 2022-11-27 09:43 | Day surgery (SDC) | payer MEDICARE, SELFPAY ==
[2022-11-24 12:37] VITALS: BMI 29.8
--- NOTE | 2022-11-26 13:02 | P.CONAN_ITS ---
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) Dysphagia (Acute) Cellulitis of face (Acute) Nephrolithiasis (Acute) GERD (gastroesophageal reflux disease) (Acute) Gastropathy (Acute) Schatzki's ring (Acute) Hepatic steatosis (Acute) History of ETOH abuse (Acute) Past Medical History Medical History (Updated 11/25/22 @ 07:42 by MARIELA Zendejas) Arthritis Cirrhosis Diarrhea Gastropathy GERD (gastroesophageal reflux disease) Hepatic steatosis History of COVID-19 History of ETOH abuse Schatzki's ring Family History Family History Father Lung cancer Mother Thyroid condition HTN (hypertension) Lung cancer CVD (cardiovascular disease) Sister Breast cancer Son Pulmonary embolism Blood clot in vein Surgical History Surgical History (Updated 11/24/22 @ 12:34 by Corina Thompson RN) History of back surgery History of esophagogastroduodenoscopy (EGD) Hx of cholecystectomy Hx of colonoscopy Hx of eye surgery Social History Social History Housing: House Alcohol intake: former Patient Tobacco Use Status: Never used Tobacco e-Cigarette/Vaping Use: Never Used Current occupational status: retired Cognitive needs: No Hearing needs: No Vision needs: No Meds Allergies Allergy/AdvReac Type Severity Reaction Status Date / Time codeine [CODEINE] Allergy Intermediate loopy Verified 11/24/22 12:33 feeling hydrocodone Allergy Intermediate Vomiting Verified 11/24/22 12:32 pseudoephedrine Allergy Intermediate HEART Verified 11/24/22 12:33 [PSEUDOEPHEDRINE] PALPITATIONS Penicillins [PENICILLINS] AdvReac Intermediate C-DIFF Verified 11/24/22 12:33 diarrhea BANDAIDS Allergy Intermediate RASH Uncoded 11/24/22 12:33 Home Medications Medication Instructions Recorded Confirmed Last Taken Type cyclosporine 0.05 % eye drops in a 1 drp ophthalmic (eye) Q12H 11/14/20 06/23/22 Unknown History dropperette (Restasis) tadalafil 5 mg tablet 5 mg PO DAILY 02/19/21 11/24/22 Unknown History Exam Exam Date and Time: November 26, 2022 1302 Height,Weight and Vital Signs: Height 6 ft Weight 99.79 kg Pertinent Lab Results Pertinent Lab Results: Laboratory Tests 07/11/22 14:40 Total Bilirubin 0.7 Direct Bilirubin 0.3 AST 18 ALT 12 Alkaline Phosphatase 68 Total Protein 7.2 Albumin 4.2 Assessment and Plan Assessment Anesthesia Assessment: Chart Reviewed
[2022-11-27 10:06] VITALS: BP 172/77; PULSE 112; RESP 18; TEMP 36.9; O2SAT 98; BMI 29.8
[2022-11-27 10:13] VITALS: BMI 29.8
--- NOTE | 2022-11-27 10:31 | ECG_ITS ---
Test Reason : preop tachy Blood Pressure : / mmHG Vent. Rate : 141 BPM Atrial Rate : 000 BPM P-R Int : 000 ms QRS Dur : 088 ms QT Int : 274 ms P-R-T Axes : 000 002 -37 degrees QTc Int : 419 ms Atrial fibrillation with rapid ventricular response Inferior infarct , age undetermined Abnormal ECG When compared with ECG of 05-JUL-2020 11:15, Atrial fibrillation has replaced Sinus rhythm Vent. rate has increased BY 63 BPM Inferior infarct is now Present T wave inversion more evident in Inferior leads Referred By: Mp Gutierrez Electronically Signed By:Raheem Lewis
--- NOTE | 2022-11-27 10:38 | PC.NURSE ---
pt with irregular new onset of afib 130's-170's , palpitations in abdomen, sob with bending. [address] lawson aware.
--- NOTE | 2022-11-27 10:40 | SUR.OPER ---
confirmed afib with rvr. dr. jruado aware. pt denied hx. early october had syncope at dentist. HR now 150's - 170's, rburst to 180 x1 still with palpitations in abdomen, dr. lawson with bedside eval. bp automated with longer time cycling secondary to irregular, manual bp 152/88 @ `1055
--- NOTE | 2022-11-27 11:01 | PC.NURSE ---
pt c/o of massive reflux - repositioned to left side per pt request. hob elevated. pt states that he feels relaxed in this position. updated Dr. Kan again. to given report to ER doc.
--- NOTE | 2022-11-27 11:08 | PC.NURSE ---
connected to portable monitor for transport to ED. Dr. Kan states at bedside at this time for evaluation. Dr. Kan going to ER to give report.
--- NOTE | 2022-11-27 11:43 | PC.NURSE ---
11:30 s/p dr. jurado report to ed emerita & rn, pt transported to ed 15, report to [facility] on monitor en route
== END ==
PROVIDERS: PCP Internal Medicine; Visit Provider Internal Medicine Gastroenterology
DX: Z12.11 Encounter for screening for malignant neoplasm of colon (principal); Z53.09 Procedure and treatment not carried out because of other contraindication; I48.91 Unspecified atrial fibrillation; K21.9 Gastro-esophageal reflux disease without esophagitis
CPT/HCPCS: 93005

== ENCOUNTER 2022-11-27 11:19 | Inpatient (IN) | payer MEDICARE, SELFPAY ==
[2022-11-27 11:38] VITALS: BP 152/105; PULSE 131; RESP 16; TEMP 37.3; O2SAT 95; BMI 29.8
--- NOTE | 2022-11-27 11:41 | ECG_ITS ---
Test Reason : TACHYCARDIA Blood Pressure : / mmHG Vent. Rate : 123 BPM Atrial Rate : 000 BPM P-R Int : 000 ms QRS Dur : 092 ms QT Int : 294 ms P-R-T Axes : 000 002 -28 degrees QTc Int : 420 ms Atrial fibrillation with rapid ventricular response Inferior infarct (cited on or before 27-NOV-2022) Abnormal ECG When compared with ECG of 27-NOV-2022 10:35, No significant change was found Referred By: Generic ED Physician Electronically Signed By:Raheem Lewis
--- NOTE | 2022-11-27 11:51 | ED.ARRPALP ---
HPI - Arrhythmia/Palpitations General Chief Complaint: Arrhythmia/Palpitations Stated Complaint: Rapid Afib Time Seen by Provider: 11/27/22 11:45 Source: patient Mode of arrival: ambulatory Limitations: no limitations History of Present Illness HPI narrative: 67-year-old male with history of hypertension presents with new onset atrial fibrillation. Patient was in the process of having an upper lower endoscopy that was routine. Prior to procedure, he was noted to be in tachycardia and it appeared to be in atrial fibrillation. Denies any chest pain, palpitations, lightheadedness, shortness of breath. The reported 2 episodes of syncope in the past. Those are not associated with chest pain or palpitations at that time. Patient is otherwise asymptomatic. There is no clear relieving or exacerbating symptoms. Patient denies a history of atrial fibrillation. Related Data Home Medications Medication Instructions Recorded Confirmed cyclosporine 0.05 % eye drops in a 1 drp ophthalmic (eye) Q12H 11/14/20 06/23/22 dropperette (Restasis) tadalafil 5 mg tablet 5 mg PO DAILY 02/19/21 11/24/22 Previous Rx's Medication Instructions Recorded loratadine 10 mg tablet (Claritin) 10 mg PO DAILY #60 tabs 02/19/21 lisinopril 20 mg tablet 20 mg PO BID #180 tabs 12/26/21 metoprolol succinate 50 mg 50 mg PO DAILY #90 tabs 12/26/21 tablet,extended release 24 hr amlodipine 5 mg tablet 5 mg PO DAILY #90 tabs 01/14/22 peg 3350-electrolytes 236 240 ml PO Q10M 1 day #4,000 mL 07/11/22 gram-22.74 gram-6.74 gram-5.86 gram solution (Golytely) sucralfate 1 gram tablet 1 g PO BID #60 tabs 10/14/22 pantoprazole 40 mg tablet,delayed 40 mg PO BID #60 tabs 11/21/22 release Allergies Allergy/AdvReac Type Severity Reaction Status Date / Time codeine [CODEINE] Allergy Intermediate loopy Verified 11/24/22 12:33 feeling hydrocodone Allergy Intermediate Vomiting Verified 11/24/22 12:32 pseudoephedrine Allergy Intermediate HEART Verified 11/24/22 12:33 [PSEUDOEPHEDRINE] PALPITATIONS Penicillins [PENICILLINS] AdvReac Intermediate C-DIFF Verified 11/24/22 12:33 diarrhea BANDAIDS Allergy Intermediate RASH Uncoded 11/24/22 12:33 REPLACED BY [facility] Past Medical History Medical History Arthritis Cirrhosis Diarrhea Gastropathy GERD (gastroesophageal reflux disease) Hepatic steatosis History of COVID-19 History of ETOH abuse Schatzki's ring Surgical History History of back surgery History of esophagogastroduodenoscopy (EGD) Hx of cholecystectomy Hx of colonoscopy Hx of eye surgery Family History Family History Father Lung cancer Mother Thyroid condition HTN (hypertension) Lung cancer CVD (cardiovascular disease) Sister Breast cancer Son Pulmonary embolism Blood clot in vein Social History Social History Housing: House Alcohol intake: former Patient Tobacco Use Status: Never used Tobacco e-Cigarette/Vaping Use: Never Used Advance Directives: No Advance Directives Information Provided: Yes Current occupational status: retired Cognitive needs: No Hearing needs: No Vision needs: No Physical Exam Vital Signs: Vital Signs: Last Vital Signs Temp 99.1 F 11/27/22 11:38 Pulse 131 H 11/27/22 11:38 Resp 16 11/27/22 11:38 BP 152/105 H 11/27/22 11:38 Pulse Ox 95 11/27/22 11:38 O2 Del Method 11/27/22 11:38 BMI result Body Mass Index 29.8 GEN: Well developed, no acute distress, alert, oriented HEENT: Normocephalic, atraumatic, normal external ears, nose appears normal, no oropharyngeal edema or exudates Eyes: Normal to appearance Neck: Supple, no lymphadenopathy Respiratory: Talks in complete sentences, no respiratory distress, clear to auscultation bilaterally Cardiovascular: Tachycardic, irregularly irregular Abdomen: Soft, nontender, nondistended, no guarding, no rebound Back: No CVA tenderness Extremities: No clubbing cyanosis or edema Neurologic: No focal neurologic deficits, cranial nerves 2-12 intact, strength is 5/5 bilaterally, gait normal Skin: No rash Course Course Course Narrative: 59-year-old male presents with possible new onset atrial fibrillation. Patient is otherwise asymptomatic and hemodynamically stable. Patient will have complete workup. Will attempt to rate control and potentially start patient on anticoagulation. We will assess a CHADS2 score as well. Patient will likely need referral to a ribbing machine operator whether that is inpatient or outpatient. Reevaluation(s) Reevaluation #1: A rate remains tachycardic. Will give intravenous diltiazem. Should this work, will add oral diltiazem as well. Chads 2 score is 1. A tape patient is a potential discharge with outpatient follow-up assuming patient can become appropriately rate controlled. Time: 12:47 Reevaluation #2: Radiology responded, recommended admission for rate control. Anticoagulation questions can be discussed at that time. Time: 14:13 Consultations Consultation #1: Sent tigertext to Dr. Lewis. Awaiting to hear recommendations. It might be best for patient to be admitted on IV heparin given significant history of epistaxis, MIKHAIL with cardioversion. Awaiting recs from Dr. Lewis. IN was discussed with the patient. Time: 13:52 Medications Administered Discontinued Medications Generic Name Dose Route Start Last Admin Trade Name Freq PRN Reason Stop Dose Admin Diltiazem HCl 15 mg 11/27/22 12:45 11/27/22 13:10 Diltiazem Hcl 50 Mg/10 Ml Vial IVPUSH 11/27/22 12:46 15 mg STAT STA Administration Medical Decision Making Medical Decision Making [facility] Narrative: 67-year-old male presents with new onset atrial fibrillation. Patient will have complete workup in the emergency department. Will determine an appropriate disposition for patient based on chads 2 score consultation with Cardiology. Patient may warrant an inpatient workup as well including echocardiogram cardiac monitoring. This is especially so if his heart rate is not controlled. Partial diagnosis includes atrial fibrillation, suture regimen trich slight abnormality, thyroid dysfunction, anemia. Differential Diagnosis Differential Diagnoses: The differential diagnosis associated with the presentation includes (atrial fibrillation, suture regimen trich slight abnormality, thyroid dysfunction, anemia.) New onset atrial fibrillation Admission/Observation Consideration of admission/observation: Escalation of care including admission/observation considered Consult Healthcare Provider Management of the patient was discussed with: Weasand Trimmer Lab Data [facility] Lab Attestation statement: I reviewed the patient's lab results. 11/27/22 12:03 11/27/22 12:03 Labs: Lab Results 11/27/22 11/27/22 11/27/22 Range/Units 12:03 12:03 12:03 WBC 7.9 (4.8-10.8) X10*3/uL RBC 5.87 H (4.60-5.80) X10*6/uL Hgb 16.8 (14.0-18.0) g/dl Hct 49.5 (42.0-52.0) % MCV 84.3 (80.0-98.0) fL MCH 28.6 (27.0-33.0) pg MCHC 33.9 (31.0-36.0) g/dl RDW 13.4 (11.0-16.0) % Plt Count 246 (160-400) X10*3/uL MPV 9.1 L (9.4-12.4) fL Absolute Nucleated RBC 0.000 (0.0-0.012) X10*3/uL Nucleated RBC % (auto) 0.0 (0.0-0.2) /100WBC Sodium 142 (135-145) mmol/L Potassium 3.8 D (3.3-5.1) mmol/L Chloride 108 (96-108) mmol/L Carbon Dioxide 23 (22-29) mmol/L Anion Gap 15 (12-20) BUN 8 L (9-16) mg/dL Creatinine 0.78 (0.5-1.4) mg/dL Estim Creat Clear Calc 110.8 Estimated GFR > 60 Random Glucose 115 (60-115) mg/dL Calcium 8.7 D (8.4-10.2) mg/dL Phosphorus 2.9 (2.7-4.5) mg/dL Magnesium 1.9 (1.6-2.6) mg/dL TSH 0.82 (0.32-4.0) uIU/mL Independent Interpretation I performed an independent interpretation of an: EKG (Atrial fibrillation with rapid ventricular response heart rate 123, normal intervals, no acute ST elevations depressions, possible LVH) Independent Historian Clinical information obtained from an independent historian. History obtained from or confirmed by: Other (Computer Animator) External Record Review External record reviewed: Office record Tests considered The following testing was considered but not selected: Echocardiogram Prescription Management I considered prescription management with: Other (Rate control medications) Chronic Conditions Patient?s care impacted by: Hypertension Critical Care Time Critical Care Time Critical Care Time: Yes Total Critical Care Time: 35 Attestation: I have personally provided 35 minutes of critical care time exclusive of time spent on separately billable procedures. Time includes review of laboratory data, radiology results, discussion with consultants, and monitoring for potential decompensation. Interventions were performed as documented above which included intravenous rate control medications for atrial fibrillation with rapid ventricular response. Discharge Plan Discharge Clinical Impression: Atrial fibrillation with RVR Patient Disposition: Admitted As Inpatient Prescriptions: No Action metoprolol succinate 50 mg tablet extended release 24 hr 50 mg PO DAILY Qty: 90 3RF lisinopril 20 mg tablet 20 mg PO BID Qty: 180 3RF amlodipine 5 mg tablet 5 mg PO DAILY Qty: 90 3RF sucralfate 1 gram tablet 1 g PO BID Qty: 60 0RF pantoprazole 40 mg tablet,delayed release (DR/EC) 40 mg PO BID Qty: 60 0RF Restasis 0.05 % dropperette 1 drp ophthalmic (eye) Q12H tadalafil 5 mg tablet 5 mg PO DAILY loratadine [Claritin] 10 mg tablet 10 mg PO DAILY Qty: 60 2RF peg 3350-electrolytes [Golytely] 236-22.74-6.74 -5.86 gram recon soln 240 ml PO Q10M 1 Days Qty: 4000 0RF Rx Instructions: until fecal effluent is clear; do not exceed a total volume of 2,000 mL
[2022-11-27 12:12] LABS: Hematocrit 49.5 % (42.0-52.0); Hemoglobin 16.8 g/dl (14.0-18.0); Mean Corpuscular HGB Conc 33.9 g/dl (31.0-36.0); Mean Corpuscular Hemoglobin 28.6 pg (27.0-33.0); Mean Corpuscular Volume 84.3 fL (80.0-98.0); Mean Platelet Volume 9.1 fL (9.4-12.4); Platelet Count 246 X10*3/uL (160-400); Red Blood Count 5.87 X10*6/uL (4.60-5.80); Red Cell Distribution Width 13.4 % (11.0-16.0); White Blood Count 7.9 X10*3/uL (4.8-10.8)
[2022-11-27 12:28] LABS: Anion Gap 15 (12-20); Blood Urea Nitrogen 8 mg/dL (9-16); Calcium 8.7 mg/dL (8.4-10.2); Carbon Dioxide 23 mmol/L (22-29); Chloride 108 mmol/L (96-108); Creatinine Clr Calc Pharmacy 110.8; Estimated Glomerular Filt Rate > 60; Glucose Random 115 mg/dL (60-115); Magnesium 1.9 mg/dL (1.6-2.6); Phosphorus 2.9 mg/dL (2.7-4.5); Potassium 3.8 mmol/L (3.3-5.1); Sodium 142 mmol/L (135-145)
[2022-11-27 12:46] LABS: TSH reflex Free T4 0.82 uIU/mL (0.32-4.0)
[2022-11-27] MEDS: dilTIAZem HCL 50 MG/10 ML VIAL 15 MG IVPUSH (13:10)
--- NOTE | 2022-11-27 14:17 | PM.IMHP ---
History of Present Illness Date of Service: 11/27/22 Attending physician on admission: Steven Howard Chief Complaint: AFib with RVR Pt is a 67-year-old male with a PMH significant for?anxiety, hx of the carotid artery dissection, HTN, BPH, rheumatoid arthritis, alcoholic fatty liver disease, basal cell carcinoma, and GERD who presents to the ED with?new onset AFib with rapid ventricular response. Patient was being prepped for an upper and lower endoscopy when he was found to be tachycardic, EKG revealed he was in AFib. Pt denies any previous hx of AFib. Pt then sent to ED for further evaluation. Pt asymptomatic. Denies chest pain/pressure, palpitations. No lightheadedness or dizziness. No diaphoresis. Denies fever, chills, nausea, vomiting, abdominal pain. Feels some bloating, but notes he underwent bowel prep for today's procedures. Of note, pt used to be on anticoagulation for hx of carotid artery dissection, but removed after multiple episodes of severe epistaxis. Pt still prone to bleeding, noting one month ago had a molar removed that provoked bleeding that was difficult to control. In the ED patient was tachycardic up in the 140s and hypertensive up to 172/77. Labs were unremarkable. EKG demonstrated atrial fibrillation with RVR of 141 with T-wave inversions in the inferior leads but without evidence of ST elevations or depressions. Pt was treated with diltiazem 30 mg p.o. in 50 mg IV push. Pt will be admitted to the hospital for further workup and treatment new onset AFib with RVR. Review of Systems Review of Systems: Bloating s/p bowel prep Denies chest pain/pressure, palpitations No lightheadedness, dizziness No SOB Yes all other systems are reviewed and are negative [facility] Medical History Arthritis Cirrhosis Diarrhea Gastropathy GERD (gastroesophageal reflux disease) Hepatic steatosis History of COVID-19 History of ETOH abuse Schatzki's ring Family History Father Lung cancer Mother Thyroid condition HTN (hypertension) Lung cancer CVD (cardiovascular disease) Sister Breast cancer Son Pulmonary embolism Blood clot in vein Surgical History History of back surgery History of esophagogastroduodenoscopy (EGD) Hx of cholecystectomy Hx of colonoscopy Hx of eye surgery Social History Household Members: Spouse Household Members Other:: adult children and grandchildren. Housing: House Do you presently have visiting nurse or other home services: No Alcohol intake: unknown Patient Tobacco Use Status: Never used Tobacco Smoked in Last 30 Days: No e-Cigarette/Vaping Use: Never Used Use of substances other than those prescribed or required for medical reasons: No Have you been hit, kicked, punched, or otherwise hurt by someone within the past year? If so, by whom?: No Do you feel safe in your current relationship?: Yes Is there a partner from a previous relationship who is making you feel unsafe now?: No Are you made to feel afraid or neglected: No Advance Directives: No Advance Directives Information Provided: Yes Do you have thoughts of harming others: None Do you have a plan to hurt others: No Plan Recently lost weight without trying: No Nutrition Risks: No Nutritional Risk Poor oral hygiene: No Current occupational status: retired Cognitive needs: No Hearing needs: No Vision needs: No Meds Allergies Allergy/AdvReac Type Severity Reaction Status Date / Time codeine [CODEINE] Allergy Intermediate loopy Verified 11/24/22 12:33 feeling hydrocodone Allergy Intermediate Vomiting Verified 11/24/22 12:32 pseudoephedrine Allergy Intermediate HEART Verified 11/24/22 12:33 [PSEUDOEPHEDRINE] PALPITATIONS Penicillins [PENICILLINS] AdvReac Intermediate C-DIFF Verified 11/24/22 12:33 diarrhea BANDAIDS Allergy Intermediate RASH Uncoded 11/24/22 12:33 Active Medications: Current Medications Pharmacy Consult (Consult Rx Perform Med Rec) 1 each MISCELLANE ONCE PRN PRN Reason: Consult order Home Medications Medication Instructions Recorded Confirmed Last Taken Type cyclosporine 0.05 % eye drops in a 1 drp ophthalmic (eye) Q12H 11/14/20 11/27/22 Unknown History dropperette (Restasis) tadalafil 5 mg tablet 5 mg PO DAILY PRN urinary urgency 02/19/21 11/27/22 Unknown History amlodipine 5 mg tablet 5 mg PO DAILY@1800 03/16/23 03/16/23 Unknown History cholecalciferol (vitamin D3) 25 25 mcg PO DAILY 11/27/22 11/27/22 Unknown History mcg (1,000 unit) capsule (Vitamin D3) multivitamin 1 tab PO DAILY 11/27/22 11/27/22 Unknown History Physical Exam Vital Signs and Narrative: Vital Signs: Last Vital Signs Temp 99.1 F 11/27/22 11:38 Pulse 131 H 11/27/22 11:38 Resp 16 11/27/22 11:38 BP 152/105 H 11/27/22 11:38 Pulse Ox 95 11/27/22 11:38 O2 Del Method 11/27/22 11:38 BMI result Body Mass Index 29.8 Constitutional: Alert, in no acute distress. Mental Status: Oriented to person, place and time. Eyes: Pupils are equal, round, and reactive to light. Ear, Nose, and Throat: Oropharynx clear, mucous membranes moist. Ears and nose without deformities. Trachea midline. Respiratory: Clear to auscultation bilaterally. No wheezing, rales, or rhonchi. Cardiovascular: Irregularly irregular rhythm, tachycardic. No murmurs, rubs, or gallops. Gastrointestinal: Abdomen soft, non-tender, non-distended. Normal bowel sounds. Neurologic: Cranial nerves II-XII are grossly intact bilaterally. No focal neurological deficits. Moves all extremities spontaneously. Skin: No rashes or lesions noted. Musculoskeletal: No cyanosis or clubbing. Extremities: No edema. Psychiatric: Normal mood and affect. Results Labs 11/27/22 12:03 11/27/22 12:03 Labs: Laboratory Results - last 24 hr 11/27/22 11/27/22 11/27/22 12:03 12:03 12:03 MCV 84.3 MCH 28.6 MCHC 33.9 RDW 13.4 Plt Count 246 MPV 9.1 L Absolute Nucleated RBC 0.000 Nucleated RBC % (auto) 0.0 Anion Gap 15 Estim Creat Clear Calc 110.8 Estimated GFR > 60 Random Glucose 115 Calcium 8.7 D Phosphorus 2.9 Magnesium 1.9 TSH 0.82 Assessment and Plan (1) Atrial fibrillation with RVR: Status: Acute Plan Pt is a 67-year-old male with a PMH significant for?anxiety, hx of the carotid artery dissection, HTN, BPH, rheumatoid arthritis, alcoholic fatty liver disease, basal cell carcinoma, and GERD who presents to the ED with?new onset AFib with rapid ventricular response. Pt will be admitted to the hospital for further workup and treatment new onset AFib with RVR. AFib with RVR Patient with heart rate up to the 140s Given diltiazem 15 mg IV push and 30 mg p.o. in the ED, heart rate now 90s-110s Cardiology consult Echocardiogram Consider Cardizem drip for heart rate consistently >120 Admit to telemetry HTN Continue amlodipine, lisinopril BPH Continue tadalafil GERD Continue sucralfate, pantoprazole Full Code Attending:?Dr. Howard DVT Prophylaxis: Heparin Pt will require a hospitalization of at least two nights for treatment of? new onset AFib with RVR. Time Spent With Patient Time: Total time managing care of this patient today ____ minutes. Quality Stroke Does the patient have a stroke diagnosis?: No VTE Prior VTE?: No VTE Risk Level:: Medical - moderate - high VTE Device Contraindication: Treatment Not Indicated VTE Drug Contraindication: N/A - Med Ordered
[2022-11-27] MEDS: dilTIAZem HCL 30 MG TABLET PO (14:26)
[2022-11-27 14:38] LABS: COVID-19 Test Negative (Negative); IDNOW Serial# 6674DD1D
[2022-11-27] MEDS: Heparin Sodium,Porcine 5,000 UNIT/ML VIAL 5000 UNIT SUBCUT (15:47)
--- NOTE | 2022-11-27 16:11 | PHA.MEDREC ---
Pharmacy Consult ? Medication Reconciliation Pharmacy has completed the medication reconciliation.
[2022-11-27 17:32] VITALS: BP 145/88; PULSE 88; RESP 20; TEMP 36.7; O2SAT 96
--- NOTE | 2022-11-27 19:33 | PC.NURSE ---
Minerva Ramachandran phone number [phone]
[2022-11-27 20:00] VITALS: BP 141/88; PULSE 88; RESP 20; TEMP 36.2; O2SAT 97
[2022-11-27] MEDS: amLODIPine Besylate 5 MG TABLET PO (21:31)
[2022-11-27] MEDS: Omeprazole 20 MG CAPSULE.DR PO (21:31)
[2022-11-27] MEDS: Acetaminophen 325 MG TABLET 650 MG PO (21:31)
[2022-11-27] MEDS: lisinopriL 20 MG TABLET PO (21:31)
[2022-11-27] MEDS: Sucralfate 1 GM TABLET PO (21:31)
[2022-11-28] VITALS: BP 120/62; PULSE 76; RESP 18; TEMP 36.4; O2SAT 93
--- NOTE | 2022-11-28 07:00 | CA_ITS ---
Transthoracic Echocardiogram Patient (Last, First, Middle): Justice Bonilla A Gender: Male Date of : 1955 Age: 67 Procedure Date: 11/28/2022 Procedure Type: Transthoracic Echocardiogram Location: S3E Height: 182.88 cm Weight: 99.79 kg BSA: 2.22 m2 Heart Rate: bpm BP: 120 / 62 mmHg Collector Of Port: Referring MD: Mariana HILL Symptoms: New onset AFib with RVR Study Quality: Adequate ECG Rhythm: Sinus Conclusions: - Normal left ventricular size and systolic function. There is mildly increased left ventricular wall thickness. The visually estimated ejection fraction is between 55-60%. - Normal right ventricular cavity size and systolic function. Findings Left Ventricle Normal left ventricular size and systolic function. There is mildly increased left ventricular wall thickness. The visually estimated ejection fraction is between 55-60%. There is no evidence of regional wall motion abnormalities. Diastolic function is indeterminate on the basis of available data. Right Ventricle Normal right ventricular cavity size and systolic function. Atria The left atrium is normal in size. Aortic Valve Normal aortic valve structure and function. There is no aortic valve stenosis. There is no aortic valve regurgitation. Mitral Valve The mitral valve appears normal. There is no mitral valve regurgitation. There is no mitral valve stenosis. Pulmonic Valve The pulmonic valve is likely normal. Tricuspid Valve Normal tricuspid valve structure and function. There is trace tricuspid valve regurgitation. Tricuspid regurgitation envelope is inadequate for calculation of right ventricular systolic pressure. Significantly elevated right atrial pressure. Great Vessels There is mild dilatation of the ascending aorta measuring 4.00 cm. The visualized portions of the pulmonary artery and branches are normal. Venous The inferior vena cava is dilated and collapses less than 50% with inspiration. Pericardium/Pleural There is no evidence of pericardial effusion. Measurements 2D Linear Measurements IVSd: 1.38 0.6-0.9/0.6-1.0 cm LVIDd: 4.93 3.9-5.3/4.2-5.9 cm LVIDd Index: 2.22 2.4-3.2/2.2-3.1 cm/m2 LVIDs: 3.10 2.0-3.6 cm LVPWd: 1.22 0.7-1.1 cm Ao Root: 4.10 2.1-3.5 cm LA Diam: 4.40 2.7-3.8/3.0-4.0 cm LAIDs Index: 1.98 1.5-2.3 cm/m2 LV Mass: 319.42 67-162/88-224 g LV Mass Index: 143.88 43-95/49-115 g/m2 LVOT Diam: 2.60 3.0+(-)1.3 cm 2D Systolic Function EF 4C: 68.20 >55% EF 2C: 46.40 >55% EF BiP: 59.90 >55% Mitral Valve MV Pk E: 0.75 MV Decel Time: 153.00 E'Lateral: 11.70 E'Medial: 7.51 E/E' Med: 10.00 E/E' Lat: 6.40 PHT: 45.00 MVA PHT: 4.89 Decel [place]: 4.93 Aortic Valve AoV Pk Kvng: 1.06 AoV Mn Kvng: 0.69 AoV VTI: 0.20 AoV Pk Grad: 4.00 Aov Mn Grad: 2.00 DOMO Cont.VTI: 4.77 LVOT LVOT Pk Kvng: 0.89 LVOT Mn Kvng: 0.55 LVOT VTI: 0.18 LVOT Pk Grad: 3.00 LVOT Mn Grad: 1.00 LVOT Diam: 2.60 LVOT Area: 5.31 Diastolic Function MV Pk E: 0.75 E'Medial: 7.51 E/E' Med: 10.00 E' Laterial: 11.70 E/E' Lat: 6.40 Right Ventricle TAPSE (mm): 19.00 TVS' Kvng: 11.00 Tricuspid Valve TR Pk Kvng: 2.25 TR Pk Grad: 20.00 RA Press: 3.00 Great Vessels Aorta Ao Root-2D: 4.10 2.0-3.7 cm Ao Asc: 4.00 2.1-3.4 cm Pulmonary Valve PV Pk Kvng: 0.72 Peak PV Grad: 2.00 Updated in Other Vendor System with Status of Final Raheem Lewis MD electronically signed on 11/28/2022 10:36:04 PM with status of Final
[2022-11-28 07:24] VITALS: BP 157/88; PULSE 77; RESP 20; TEMP 36.4; O2SAT 94
--- NOTE | 2022-11-28 08:14 | MHC.CM.PN ---
CM met with Patient at bedside and addressed IMM with him, providing him with the original and a copy has been placed on the chart. 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 Home self care is the goal and CM has initiated and will follow for dc planning. Patient natalie received Covid vax x5 and his PCP for now is Dr. Clari Duong (will be changing with Patient's new insurance).
[2022-11-28] MEDS: Heparin Sodium,Porcine 5,000 UNIT/ML VIAL 5000 UNIT SUBCUT (11:16)
[2022-11-28] MEDS: Metoprolol Succinate ER 50 MG TAB.ER.24H PO (11:17)
[2022-11-28] MEDS: Multivitamin TABLET 1 TAB PO (11:17)
[2022-11-28] MEDS: lisinopriL 20 MG TABLET PO ×2 (11:17→20:47)
[2022-11-28] MEDS: Omeprazole 20 MG CAPSULE.DR PO ×2 (11:17→20:48)
[2022-11-28] MEDS: 0.9 % Sodium Chloride Flush 3 ML SYRINGE IVFLUSH ×2 (11:18→16:25)
[2022-11-28] MEDS: Cholecalciferol (Vitamin D3) 25 MCG TABLET PO (11:18)
[2022-11-28] MEDS: Sucralfate 1 GM TABLET PO ×2 (11:24→20:47)
[2022-11-28 11:30] VITALS: BP 131/80; PULSE 56; RESP 20; TEMP 36.9; O2SAT 95
--- NOTE | 2022-11-28 12:54 | HO.PM.IMPN ---
Subjective Subjective Date of Service: 11/28/22 Interval History: Remains in AFib with acceptable rate control Review of Systems Denies chest pain Denies shortness of breath Denies nausea vomiting diarrhea Denies fever chills Physical Exam Vital Signs: Vital Signs: Last Vital Signs Temp 98.5 F 11/28/22 11:30 Pulse 56 11/28/22 11:30 Resp 20 11/28/22 11:30 BP 131/80 11/28/22 11:30 Pulse Ox 95 11/28/22 11:30 O2 Del Method 11/28/22 11:30 BMI result Body Mass Index 29.8 Const: Other: No acute distress Resp: Other: Clear to auscultation bilaterally no rales rhonchi wheezes Cardio: Other: No S4; positive S1-S2; no S3 murmurs rubs or gallops GI: Other: Soft nontender nondistended normoactive bowel sounds Extrem: Other: No edema bilaterally Objective Data Active Medications Acetaminophen (Acetaminophen 325 Mg Tablet) 650 mg PO Q6H PRN PRN Reason: Pain, Mild (Pain Scale 1-3) Last Admin: 11/27/22 21:31 Dose: 650 mg Documented By: SONIA Amlodipine Besylate (Amlodipine Besylate 5 Mg Tablet) 5 mg PO DAILY@1800 GIULIA; Protocol Last Admin: 11/27/22 21:31 Dose: 5 mg Documented By: SONIA Heparin Sodium (Porcine) (Heparin Sodium,Porcine 5,000 Unit/Ml Vial) 5,000 unit SUBCUT Q8H [facility] Last Admin: 11/28/22 11:16 Dose: 5,000 unit Documented By: PATRICIA Lisinopril (Lisinopril 20 Mg Tablet) 20 mg PO BID [facility]; Protocol Last Admin: 11/28/22 11:17 Dose: 20 mg Documented By: PATRICIA Metoprolol Succinate (Metoprolol Succinate Er 50 Mg Tab.Er.24h) 50 mg PO DAILY [facility]; Protocol Last Admin: 11/28/22 11:17 Dose: 50 mg Documented By: PATRICIA Multivitamins/Vitamin C (Multivitamin Tablet) 1 tab PO DAILY [facility] Last Admin: 11/28/22 11:17 Dose: 1 tab Documented By: PATRICIA Non-Formulary Medication (Cyclosporine [Restasis]) 1 drop EYE-BOTH Q12H [facility] Non-Formulary Medication (Tadalafil) 5 mg PO DAILY PRN PRN Reason: urinary urgency Omeprazole (Omeprazole 20 Mg Juan.) 20 mg PO BID [facility] Last Admin: 11/28/22 11:17 Dose: 20 mg Documented By: PATRICIA Ondansetron HCl (Ondansetron Hcl 4 Mg/2 Ml Vial) 4 mg IVPUSH Q8H PRN PRN Reason: Nausea and Vomiting Pharmacy Consult (Consult Rx Perform Med Rec) 1 each MISCELLANE ONCE PRN PRN Reason: Consult order Sodium Chloride (0.9 % Sodium Chloride Flush 3 Ml Syringe) 3 ml IVFLUSH QSHIFT [facility] Last Admin: 11/28/22 11:18 Dose: 3 ml Documented By: PATRICIA Sucralfate (Sucralfate 1 Gm Tablet) 1 gm PO BID [facility] Last Admin: 11/28/22 11:24 Dose: 1 gm Documented By: PATRICIA Vitamin D (Cholecalciferol (Vitamin D3) 25 Mcg Tablet) 25 mcg PO DAILY [facility] Last Admin: 11/28/22 11:18 Dose: 25 mcg Documented By: PATRICIA Labs 11/27/22 12:03 11/27/22 12:03 Labs: Laboratory Results - last 24 hr 11/27/22 14:17 COVID-19 (PAT) Negative COVID-19 Clin Com See Note Assessment and Plan (1) Atrial fibrillation with RVR: Status: Acute (2) Hypertension: Status: Acute (3) GERD (gastroesophageal reflux disease): Status: Acute Plan Pt is a 67-year-old male with a PMH significant for?anxiety, hx of the carotid artery dissection, HTN, BPH, rheumatoid arthritis, alcoholic fatty liver disease, basal cell carcinoma, and GERD who presents to the ED with?new onset AFib with rapid ventricular response. Pt will be admitted to the hospital for further workup and treatment new onset AFib with RVR. 1.AFib with RVR -adequate rate control on p.o. Cardizem -echo done reading pending -await Cardiology input 2.HTN -acceptable control -amlodipine/lisinopril 3.GERD -Continue sucralfate, pantoprazole Full Code Heparin Will require ongoing hospitalization to monitor rate control and adjust medical therapies Time Spent With Patient Time: Total time managing care of this patient today ____ minutes. Quality Stroke Does the patient have a stroke diagnosis?: No VTE Prior VTE?: No VTE Risk Level:: Medical - moderate - high VTE Device Contraindication: Treatment Not Indicated VTE Drug Contraindication: N/A - Med Ordered
--- NOTE | 2022-11-28 13:11 | PM.CNCAR ---
History of Present Illness History of Present Illness Date of Service: 11/28/22 Requesting physician: Steven Howard Chief complaint: New onset Afib Narrative: [id number] who came for endoscopy and was noticed to be in AFib with RVR. He has not felt any significant symptoms. Nine palpitations, chest discomfort shortness of breath. He has significant GI issues. He has no significant GI bleed uterine bleed. He did have epistaxis which was more than a year ago. He also has some dental work in September when he had some bleeding afterwards. Currently he has no bleeding concerns. Due to his history of epistaxis he was not started on anticoagulation. His chads Vasc score is 2. Currently his heart rates are reasonably controlled. [facility] Past Medical History Medical History Arthritis Cirrhosis Diarrhea Gastropathy GERD (gastroesophageal reflux disease) Hepatic steatosis History of COVID-19 History of ETOH abuse Schatzki's ring Family History Family History Father Lung cancer Mother Thyroid condition HTN (hypertension) Lung cancer CVD (cardiovascular disease) Sister Breast cancer Son Pulmonary embolism Blood clot in vein Surgical History Surgical History History of back surgery History of esophagogastroduodenoscopy (EGD) Hx of cholecystectomy Hx of colonoscopy Hx of eye surgery Social History Social History Household Members: Spouse Household Members Other:: adult children and grandchildren. Housing: House Do you presently have visiting nurse or other home services: No Alcohol intake: unknown Patient Tobacco Use Status: Never used Tobacco Smoked in Last 30 Days: No e-Cigarette/Vaping Use: Never Used Use of substances other than those prescribed or required for medical reasons: No Currently Displaying Signs/Symptoms of Drug Intoxication Withdrawal: No Have you been hit, kicked, punched, or otherwise hurt by someone within the past year? If so, by whom?: No Do you feel safe in your current relationship?: Yes Is there a partner from a previous relationship who is making you feel unsafe now?: No Are you made to feel afraid or neglected: No Advance Directives: No Advance Directives Information Provided: Yes Do you have thoughts of harming others: None Do you have a plan to hurt others: No Plan Recently lost weight without trying: No Nutrition Risks: No Nutritional Risk Poor oral hygiene: No service: No Current occupational status: retired Cognitive needs: No Hearing needs: No Vision needs: No Meds Allergies Allergy/AdvReac Type Severity Reaction Status Date / Time codeine [CODEINE] Allergy Intermediate loopy Verified 11/24/22 12:33 feeling hydrocodone Allergy Intermediate Vomiting Verified 11/24/22 12:32 pseudoephedrine Allergy Intermediate HEART Verified 11/24/22 12:33 [PSEUDOEPHEDRINE] PALPITATIONS Penicillins [PENICILLINS] AdvReac Intermediate C-DIFF Verified 11/24/22 12:33 diarrhea BANDAIDS Allergy Intermediate RASH Uncoded 11/24/22 12:33 Active Medications: Current Medications Acetaminophen (Acetaminophen 325 Mg Tablet) 650 mg PO Q6H PRN PRN Reason: Pain, Mild (Pain Scale 1-3) Last Admin: 11/27/22 21:31 Dose: 650 mg Amlodipine Besylate (Amlodipine Besylate 5 Mg Tablet) 5 mg PO DAILY@1800 [facility]; Protocol Last Admin: 11/27/22 21:31 Dose: 5 mg Heparin Sodium (Porcine) (Heparin Sodium,Porcine 5,000 Unit/Ml Vial) 5,000 unit SUBCUT Q8H [facility] Last Admin: 11/28/22 11:16 Dose: 5,000 unit Lisinopril (Lisinopril 20 Mg Tablet) 20 mg PO BID [facility]; Protocol Last Admin: 11/28/22 11:17 Dose: 20 mg Metoprolol Succinate (Metoprolol Succinate Er 50 Mg Tab.Er.24h) 50 mg PO DAILY [facility]; Protocol Last Admin: 11/28/22 11:17 Dose: 50 mg Multivitamins/Vitamin C (Multivitamin Tablet) 1 tab PO DAILY [facility] Last Admin: 11/28/22 11:17 Dose: 1 tab Non-Formulary Medication (Cyclosporine [Restasis]) 1 drop EYE-BOTH Q12H [facility] Non-Formulary Medication (Tadalafil) 5 mg PO DAILY PRN PRN Reason: urinary urgency Omeprazole (Omeprazole 20 Mg Capsule.Dr) 20 mg PO BID [facility] Last Admin: 11/28/22 11:17 Dose: 20 mg Ondansetron HCl (Ondansetron Hcl 4 Mg/2 Ml Vial) 4 mg IVPUSH Q8H PRN PRN Reason: Nausea and Vomiting Pharmacy Consult (Consult Rx Perform Med Rec) 1 each MISCELLANE ONCE PRN PRN Reason: Consult order Sodium Chloride (0.9 % Sodium Chloride Flush 3 Ml Syringe) 3 ml IVFLUSH QSHIFT [facility] Last Admin: 11/28/22 11:18 Dose: 3 ml Sucralfate (Sucralfate 1 Gm Tablet) 1 gm PO BID [facility] Last Admin: 11/28/22 11:24 Dose: 1 gm Vitamin D (Cholecalciferol (Vitamin D3) 25 Mcg Tablet) 25 mcg PO DAILY [facility] Last Admin: 11/28/22 11:18 Dose: 25 mcg Home Medications Medication Instructions Recorded Confirmed Last Taken Type cyclosporine 0.05 % eye drops in a 1 drp ophthalmic (eye) Q12H 11/14/20 11/27/22 Unknown History dropperette (Restasis) tadalafil 5 mg tablet 5 mg PO DAILY PRN urinary urgency 02/19/21 11/27/22 Unknown History amlodipine 5 mg tablet 5 mg PO DAILY@1800 11/27/22 11/27/22 Unknown History cholecalciferol (vitamin D3) 25 25 mcg PO DAILY 11/27/22 11/27/22 Unknown History mcg (1,000 unit) capsule (Vitamin D3) multivitamin 1 tab PO DAILY 11/27/22 11/27/22 Unknown History Physical Exam Vital Signs: Vital Signs: Last Vital Signs Temp 98.5 F 11/28/22 11:30 Pulse 56 11/28/22 11:30 Resp 20 11/28/22 11:30 BP 131/80 11/28/22 11:30 Pulse Ox 95 11/28/22 11:30 O2 Del Method 11/28/22 11:30 BMI result Body Mass Index 29.8 GENERAL APPEARANCE: in no acute distress, pleasant. NECK: no carotid bruit, no jugular venous distention. SKIN: no suspicious lesions, warm and dry. HEART: no murmurs, irregular rate and rhythm. LUNGS: clear to auscultation bilaterally. ABDOMEN: soft, nontender. EXTREMITIES: no edema. PERIPHERAL PULSES: equal. NEUROLOGIC: No gross deficits, AAO X 3 Objective Labs and Meds 11/27/22 12:03 11/27/22 12:03 Lab results: Laboratory Results - last 24 hr 11/27/22 14:17 COVID-19 (PAT) Negative COVID-19 Clin Com See Note Assessment and Plan (1) Atrial fibrillation with RVR: Status: Acute (2) Hypertension: Status: Acute Plan 67-year-old gentleman with significant GI issues presenting with new onset atrial fibrillation. He is denying any chest discomfort shortness of breath. He has Schatzki's ring and doing MIKHAIL cardioversion could be challenging. Also has not been started on anticoagulation. He did not have any recent GI bleeding, bleed or epistaxis. I think he should be started on Eliquis 5 mg twice a day as he has chads Vasc score of 2 and has stroke risk. I would favor rate controlled currently to see if he can tolerate anticoagulation. If there is any bleeding concerns and anticoagulation has to be discontinued. For him to be MIKHAIL cardioverted needs to be on anticoagulation and tolerating it has post cardioversion if he dropped the anticoagulation that can be quite dangerous. Thank you for allowing me to participate in the care of your patient. Please feel free to contact me if you have any questions. Time Spent With Patient Time: Total time managing care of this patient today ____ minutes. Procedures Date of Service Date of Service: 11/28/22
[2022-11-28 15:17] VITALS: BP 121/73; PULSE 81; RESP 18; TEMP 36.4; O2SAT 94
[2022-11-28] MEDS: Apixaban 5 MG TABLET PO ×2 (16:19→20:47)
[2022-11-28] MEDS: amLODIPine Besylate 5 MG TABLET PO (17:58)
[2022-11-28 19:07] VITALS: BP 130/77; PULSE 102; RESP 18; TEMP 36.5; O2SAT 94
[2022-11-28 23:18] VITALS: BP 127/70; PULSE 87; RESP 20; TEMP 36.9; O2SAT 98
[2022-11-29] MEDS: 0.9 % Sodium Chloride Flush 3 ML SYRINGE IVFLUSH ×2 (00:09→08:49)
[2022-11-29 04:00] VITALS: BP 129/70; PULSE 96; RESP 20; TEMP 36.7; O2SAT 98
[2022-11-29 05:47] LABS: MANUAL DIFF FLAG NO
[2022-11-29 05:52] LABS: Basophils Absolute Auto 0.1 X10*3/uL (0.0-0.2); Basophils Percent Auto 0.7 % (0-2); Eosinophils Absolute Auto 0.2 X10*3/uL (0.0-0.4); Eosinophils Percent Auto 2.5 % (0-4); Hematocrit 49.5 % (42.0-52.0); Hemoglobin 16.5 g/dl (14.0-18.0); Imm Gran Abs Auto 0.03 X10*3/uL (0.00-0.03); Imm Gran Pct Auto 0.3 % (0.0-0.4); Lymphocytes Absolute Auto 2.5 X10*3/uL (1.2-4.9); Lymphocytes Percent Auto 28.3 % (20-40); Mean Corpuscular HGB Conc 33.3 g/dl (31.0-36.0); Mean Corpuscular Hemoglobin 28.3 pg (27.0-33.0); Mean Corpuscular Volume 84.8 fL (80.0-98.0); Mean Platelet Volume 8.8 fL (9.4-12.4); Monocytes Absolute Auto 0.8 X10*3/uL (0.1-1.2); Monocytes Percent Auto 8.7 % (2-11); Neutrophils Absolute Auto 5.2 x10*3/uL (2.0-8.3); Neutrophils Percent Auto 59.5 % (45-73); Platelet Count 238 X10*3/uL (160-400); Red Blood Count 5.84 X10*6/uL (4.60-5.80); Red Cell Distribution Width 13.3 % (11.0-16.0); White Blood Count 8.8 X10*3/uL (4.8-10.8)
[2022-11-29 06:07] LABS: Alanine Aminotransferase 22 U/L (0-40); Albumin Level 3.8 g/dL (3.5-5.0); Alkaline Phosphatase 60 U/L (39-117); Anion Gap 13 (12-20); Aspartate Amino Transferase 18 U/L (5-37); Bilirubin Total 0.7 mg/dL (0.0-1.0); Blood Urea Nitrogen 12 mg/dL (9-16); Calcium 8.8 mg/dL (8.4-10.2); Carbon Dioxide 28 mmol/L (22-29); Chloride 104 mmol/L (96-108); Estimated Glomerular Filt Rate > 60; Glucose Fasting 102 mg/dL (60-99); Potassium 4.2 mmol/L (3.3-5.1); Sodium 141 mmol/L (135-145); Total Protein 6.5 g/dL (6.5-8.0)
[2022-11-29 07:29] VITALS: BP 127/83; PULSE 86; RESP 18; TEMP 37; O2SAT 93
[2022-11-29] MEDS: Sucralfate 1 GM TABLET PO (08:50)
[2022-11-29] MEDS: lisinopriL 20 MG TABLET PO (08:50)
[2022-11-29] MEDS: Apixaban 5 MG TABLET PO (08:50)
[2022-11-29] MEDS: Metoprolol Succinate ER 50 MG TAB.ER.24H PO (08:50)
[2022-11-29] MEDS: Multivitamin TABLET 1 TAB PO (08:50)
[2022-11-29] MEDS: Omeprazole 20 MG CAPSULE.DR PO (08:50)
[2022-11-29] MEDS: Cholecalciferol (Vitamin D3) 25 MCG TABLET PO (08:50)
--- NOTE | 2022-11-29 10:05 | MHC.CM.PN ---
pt dcd home no skilled servceis ordered by
--- NOTE | 2022-11-29 11:10 | PM.DS ---
DS: Providers Provider Date of Service: 11/29/22 Date of admission: 11/27/22 15:06 Date of discharge: 11/29/22 Primary care physician: Unknown Physician Consults: 11/27/22 15:12 Consult to Cardiology Routine Consulting Provider: [facility] Cardi[facility] Services Reason for consultation: New-onset AFib with RVR DS: Diagnosis Discharge Diagnosis (1) Atrial fibrillation with RVR: Status: Acute (2) Hypertension: Status: Acute DS: Summary Hospital Course Hospital Course: ?67-year-old male with a PMH significant for?anxiety, hx of the carotid artery dissection, HTN, BPH, rheumatoid arthritis, alcoholic fatty liver disease, basal cell carcinoma, and GERD who presents to the ED with?new onset AFib with rapid ventricular response. Patient was being prepped for an upper and lower endoscopy when he was found to be tachycardic, EKG revealed he was in AFib. Pt denies any previous hx of AFib. Pt then sent to ED for further evaluation. Pt asymptomatic. Denies chest pain/pressure, palpitations. No lightheadedness or dizziness. No diaphoresis. Denies fever, chills, nausea, vomiting, abdominal pain. Feels some bloating, but notes he underwent bowel prep for today's procedures. Of note, pt used to be on anticoagulation for hx of carotid artery dissection, but removed after multiple episodes of severe epistaxis. Pt still prone to bleeding, noting one month ago had a molar removed that provoked bleeding that was difficult to control. In the ED patient was tachycardic up in the 140s and hypertensive up to 172/77. Labs were unremarkable. EKG demonstrated atrial fibrillation with RVR of 141 with T-wave inversions in the inferior leads but without evidence of ST elevations or depressions. Pt was treated with diltiazem 30 mg p.o. in 50 mg IV push. Pt will be admitted to the hospital for further workup and treatment new onset AFib with RVR. Hospital Course Admitted to telemetry where his rate remained controlled on metoprolol 50 once daily. Seen in consultation by Cardiology. Plan is to anticoagulate with Eliquis and follow up cardiology's an outpatient. Cardioversion can be discussed when appropriate. Patient advised to follow-up with cardiology as scheduled and continue Eliquis. If any bleeding he should present to the emergency room. He is to follow up with PCP in 2 week Time Spent with Patient Time attestation: Total time managing care of this patient today ____ minutes. Discharge coordination time: Greater than 30 minutes Quality: Safe Use of Opioids Does Pt have an Active Cancer Diagnosis on the Problem List?: No Quality: Stroke Does the patient have a stroke diagnosis?: No Physical Exam Vital Signs: Vital Signs: Last Vital Signs Temp 98.6 F 11/29/22 07:29 Pulse 86 11/29/22 07:29 Resp 18 11/29/22 07:29 BP 127/83 11/29/22 07:29 Pulse Ox 93 11/29/22 07:29 O2 Del Method 11/29/22 07:29 BMI result Body Mass Index 29.8 Const: Other: No acute distress Resp: Other: Clear to auscultation bilaterally no rales rhonchi wheezes Cardio: Other: No S4; positive S1-S2; no S3 murmurs rubs or gallops GI: Other: Soft nontender nondistended normoactive bowel sounds Extrem: Other: No edema bilaterally DS: Data Data Completed and Pending Labs on day of discharge: Laboratory Results - last 24 hr 11/29/22 11/29/22 05:36 05:36 WBC 8.8 RBC 5.84 H Hgb 16.5 Hct 49.5 MCV 84.8 MCH 28.3 MCHC 33.3 RDW 13.3 Plt Count 238 MPV 8.8 L Immature Gran % (Auto) 0.3 Neut % (Auto) 59.5 Lymph % (Auto) 28.3 Sutton % (Auto) 8.7 Eos % (Auto) 2.5 Baso % (Auto) 0.7 Lymph # (Auto) 2.5 Sutton # (Auto) 0.8 Eos # (Auto) 0.2 Baso # (Auto) 0.1 Abs Immat Gran (auto) 0.03 Absolute Neuts (auto) 5.2 Absolute Nucleated RBC 0.000 Nucleated RBC % (auto) 0.0 Sodium 141 Potassium 4.2 Chloride 104 Carbon Dioxide 28 Anion Gap 13 BUN 12 Creatinine 0.80 Estim Creat Clear Calc 108.0 Estimated GFR > 60 Fasting Glucose 102 H Calcium 8.8 Total Bilirubin 0.7 AST 18 ALT 22 Alkaline Phosphatase 60 Total Protein 6.5 Albumin 3.8 Discharge Plan Discharge Anticipated Discharge Date/Time: 11/29/22 11:21 Patient Disposition: Home, Self-Care Discharge Diagnosis: Atrial fibrillation with rapid ventricular response Referrals: Physician,Giuliana J [Primary Care Provider] - 1 Week Discharge Medications: New Eliquis 5 mg Tablet 5 mg PO BID Qty: 60 0RF Continued metoprolol succinate 50 mg tablet extended release 24 hr 50 mg PO DAILY Qty: 90 3RF lisinopril 20 mg tablet 20 mg PO BID Qty: 180 3RF sucralfate 1 gram tablet 1 g PO BID Qty: 60 0RF pantoprazole 40 mg tablet,delayed release (DR/EC) 40 mg PO BID Qty: 60 0RF amlodipine 5 mg tablet 5 mg PO DAILY@1800 multivitamin Tablet 1 tab PO DAILY cholecalciferol (vitamin D3) [Vitamin D3] 25 mcg (1,000 unit) Capsule 25 mcg PO DAILY Restasis 0.05 % dropperette 1 drp ophthalmic (eye) Q12H tadalafil 5 mg tablet 5 mg PO DAILY PRN (Reason: urinary urgency) Discharge Orders: Discharge Order (Routine); Ordered 11/29/22 Ordered By: Steven Howard Diet: Advance to usual diet Activity on Discharge: As tolerated Stand Alone Forms: Patient Portal Discharge page Care Plan Goals: Resume all pre-hospital medications Health Concerns: Add Eliquis 5 mg twice daily. Any signs of bleeding. .. Go to emergency room Plan of Treatment: Follow-up with cardiology as scheduled; they will call you with appointment Assessment: See discharge summary Patient Instructions: Apixaban (By mouth) Discharge Date/Time: 11/29/22 13:22
[2022-11-29 11:30] VITALS: BP 123/79; PULSE 80; RESP 18; TEMP 37.1; O2SAT 98
== END 2022-11-29 13:22 | disposition home or self-care (01) | DRG 310 ==
LOC: HO.ED 14:15 → HO.EDOVER 15:33 → HO.IMC 15:45
PROVIDERS: Admitting Provider Student in an Organized Health Care Education/Training Program; Emergency Provider Emergency Medicine; PCP Internal Medicine; Visit Provider Hospitalist
DX: I48.91 Unspecified atrial fibrillation (principal); M06.9 Rheumatoid arthritis, unspecified; K22.2 Esophageal obstruction; K21.9 Gastro-esophageal reflux disease without esophagitis; I10 Essential (primary) hypertension; N40.0 Benign prostatic hyperplasia without lower urinary tract symptoms; Z20.822 Contact with and (suspected) exposure to COVID-19; Z88.0 Allergy status to penicillin; Z88.5 Allergy status to narcotic agent; Z79.01 Long term (current) use of anticoagulants; Z79.899 Other long term (current) drug therapy
CPT/HCPCS: 36415; 80048; 80053; 83735; 84100; 84443; 85025; 85027; 87635; 93005; 93306; 99222; 99285; J1643; Q9957

== ENCOUNTER → 2022-12-17 13:56 | Outpatient (BNVA) | payer MEDICARE, SELFPAY | PROVIDERS: PCP Internal Medicine; Visit Provider Internal Medicine Cardiovascular Disease | DX: I48.19 Other persistent atrial fibrillation (principal); I10 Essential (primary) hypertension | CPT/HCPCS: 93005; 99212 ==

== ENCOUNTER 2023-01-07 11:40 | Day surgery (SDC) | payer MEDICARE, SELFPAY ==
--- NOTE | 2023-01-06 09:17 | HO.ANESPROP2 ---
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 (Acute) Dysphagia (Acute) Cellulitis of face (Acute) Nephrolithiasis (Acute) GERD (gastroesophageal reflux disease) (Acute) Gastropathy (Acute) Schatzki's ring (Acute) Hepatic steatosis (Acute) History of ETOH abuse (Acute) Past Medical History Medical History Arthritis Cirrhosis Diarrhea Gastropathy GERD (gastroesophageal reflux disease) Hepatic steatosis History of COVID-19 History of ETOH abuse Schatzki's ring Family History Family History Father Lung cancer Mother Thyroid condition HTN (hypertension) Lung cancer CVD (cardiovascular disease) Sister Breast cancer Son Pulmonary embolism Blood clot in vein Surgical History Surgical History History of back surgery History of esophagogastroduodenoscopy (EGD) Hx of cholecystectomy Hx of colonoscopy Hx of eye surgery Social History Social History (Updated 12/17/22 @ 14:25 by MARINO Gray) Household Members: Spouse Household Members Other:: adult children and grandchildren. Housing: House Do you presently have visiting nurse or other home services: No Alcohol intake: never Patient Tobacco Use Status: Never used Tobacco e-Cigarette/Vaping Use: Never Used Second Hand Smoke Exposure: No Use of substances other than those prescribed or required for medical reasons: No Are you DNR?: No Advance Directives: No Advance Directives Information Provided: Yes Advance Directives on File: No service: No Current occupational status: retired Cognitive needs: No Hearing needs: No Vision needs: No Meds Allergies Allergy/AdvReac Type Severity Reaction Status Date / Time codeine [CODEINE] Allergy Intermediate loopy Verified 12/17/22 14:24 feeling hydrocodone Allergy Intermediate Vomiting Verified 12/17/22 14:24 pseudoephedrine Allergy Intermediate HEART Verified 12/17/22 14:24 [PSEUDOEPHEDRINE] PALPITATIONS Penicillins [PENICILLINS] AdvReac Intermediate C-DIFF Verified 12/17/22 14:24 diarrhea BANDAIDS Allergy Intermediate RASH Uncoded 12/17/22 14:24 Home Medications Medication Instructions Recorded Confirmed Last Taken Type cyclosporine 0.05 % eye drops in a 1 drp ophthalmic (eye) Q12H 11/14/20 01/07/23 01/07/23 History dropperette (Restasis) tadalafil 5 mg tablet 5 mg PO DAILY PRN urinary urgency 02/19/21 01/07/23 Unknown History cholecalciferol (vitamin D3) 25 25 mcg PO DAILY 11/27/22 01/07/23 01/07/23 History mcg (1,000 unit) capsule (Vitamin D3) multivitamin 1 tab PO DAILY 11/27/22 01/07/23 01/07/23 History Exam Exam Date and Time: January 06, 2023 0917 Pertinent Lab Results Pertinent Lab Results: Laboratory Tests 11/29/22 11/29/22 05:36 05:36 WBC 8.8 Hgb 16.5 Hct 49.5 Plt Count 238 Sodium 141 Potassium 4.2 Chloride 104 Carbon Dioxide 28 BUN 12 Creatinine 0.80 Narrative Narrative: EKG 12/2022 Atrial fibrillation 116 beats per minute, nonspecific T-wave changes, QTC 461 milliseconds. ECHO 11/2022 Conclusions: - Normal left ventricular size and systolic function. There is ? mildly increased left ventricular wall thickness.? The visually? estimated ejection fraction is between 55-60%. ? - Normal right ventricular cavity size and systolic function.?? US abdomen complete 07/2022 IMPRESSION: Limited exam. Echogenic liver probably representing fatty infiltration. Assessment and Plan Assessment Anesthesia Assessment: Chart Reviewed Documented by User: Onesimo Francisco MD 01/07/23 13:34 HPI - Anesthesia Eval Consult details Narrative: 67yo M for Cardioversion Eliquis for afib Hx ETOH abuse, possible early cirrhosis; stopped drinking 30 yrs ago. [facility] Past Medical History Medical History Arthritis Cirrhosis Diarrhea Gastropathy GERD (gastroesophageal reflux disease) Hepatic steatosis History of COVID-19 History of ETOH abuse Schatzki's ring Family History Family History Father Lung cancer Mother Thyroid condition HTN (hypertension) Lung cancer CVD (cardiovascular disease) Sister Breast cancer Son Pulmonary embolism Blood clot in vein Family history of problems with anesthesia: No Surgical History Surgical History History of back surgery History of esophagogastroduodenoscopy (EGD) Hx of cholecystectomy Hx of colonoscopy Hx of eye surgery History of Problems with Anesthesia: No Social History Social History (Updated 12/17/22 @ 14:25 by MARINO Gray) Household Members: Spouse Household Members Other:: adult children and grandchildren. Housing: House Do you presently have visiting nurse or other home services: No Alcohol intake: never Patient Tobacco Use Status: Never used Tobacco e-Cigarette/Vaping Use: Never Used Second Hand Smoke Exposure: No Use of substances other than those prescribed or required for medical reasons: No Are you DNR?: No Advance Directives: No Advance Directives Information Provided: Yes Advance Directives on File: No service: No Current occupational status: retired Cognitive needs: No Hearing needs: No Vision needs: No Meds Allergies Allergy/AdvReac Type Severity Reaction Status Date / Time codeine [CODEINE] Allergy Intermediate loopy Verified 12/17/22 14:24 feeling hydrocodone Allergy Intermediate Vomiting Verified 12/17/22 14:24 pseudoephedrine Allergy Intermediate HEART Verified 12/17/22 14:24 [PSEUDOEPHEDRINE] PALPITATIONS Penicillins [PENICILLINS] AdvReac Intermediate C-DIFF Verified 12/17/22 14:24 diarrhea BANDAIDS Allergy Intermediate RASH Uncoded 12/17/22 14:24 Home Medications Medication Instructions Recorded Confirmed Last Taken Type cyclosporine 0.05 % eye drops in a 1 drp ophthalmic (eye) Q12H 11/14/20 01/07/23 01/07/23 History dropperette (Restasis) tadalafil 5 mg tablet 5 mg PO DAILY PRN urinary urgency 02/19/21 01/07/23 Unknown History cholecalciferol (vitamin D3) 25 25 mcg PO DAILY 11/27/22 01/07/23 01/07/23 History mcg (1,000 unit) capsule (Vitamin D3) multivitamin 1 tab PO DAILY 11/27/22 01/07/23 01/07/23 History Exam Airway Mallampati Class: I TM Dist: >3cm Neck ROM: Full Loose/Missing/Broken Teeth: Yes and Upper Heart: ok Lungs: ok Assessment and Plan Assessment Anesthesia Assessment: Anesthesia Plan Discussed Final Anesthetic Review Family History of Problems with Anesthesia: No History of Problems with Anesthesia: No NPO: Yes ASA Class: III Final Preanesthetic Review: No Changes in Pt Med Stat, Meds/Allgs Chart Reviewed, Consent Obtained/Reviewed and Anes Risks/Benef Reviewed Patient Risk: Intermediate Procedure Risk: Low Anesthetic Plan Anesthetic Plan: MAC: and Agree w/ Assess. and Plan Disposition: Standard PACU
--- NOTE | 2023-01-07 | ECG_ITS ---
Test Reason : post op Blood Pressure : / mmHG Vent. Rate : 076 BPM Atrial Rate : 076 BPM P-R Int : 188 ms QRS Dur : 096 ms QT Int : 410 ms P-R-T Axes : 037 -03 011 degrees QTc Int : 461 ms Normal sinus rhythm Inferior infarct (cited on or before 27-NOV-2022) Abnormal ECG When compared with ECG of 27-NOV-2022 11:47, Sinus rhythm has replaced Atrial fibrillation Vent. rate has decreased BY 47 BPM Nonspecific T wave abnormality has replaced inverted T waves in Inferior leads Referred By: Raheem Lewis Electronically Signed By:Raheem Lewis
[2023-01-07 11:49] VITALS: BMI 32.3
[2023-01-07 11:58] VITALS: BP 131/83; PULSE 107; RESP 16; TEMP 36.8; O2SAT 96
--- NOTE | 2023-01-07 13:32 | MHC.SHP ---
Pre-Procedural Eval Section A Date of Service: 01/07/23 The patient is an INPATIENT: No The History & Physical has been completed within 30 days and I have reviewed it.: Yes Section B Chief Complaint: Other persistent atrial fibrillation Allergies: Allergies Allergy/AdvReac Type Severity Reaction Status Date / Time codeine [CODEINE] Allergy Intermediate loopy Verified 12/17/22 14:24 feeling hydrocodone Allergy Intermediate Vomiting Verified 12/17/22 14:24 pseudoephedrine Allergy Intermediate HEART Verified 12/17/22 14:24 [PSEUDOEPHEDRINE] PALPITATIONS Penicillins [PENICILLINS] AdvReac Intermediate C-DIFF Verified 12/17/22 14:24 diarrhea BANDAIDS Allergy Intermediate RASH Uncoded 12/17/22 14:24 Plan Diagnosis/Plan: Unchanged I have reviewed the history and physical and performed a pertinent physical examination on my patient. No changes have occurred unless specified. Time Spent With Patient Time: Total time managing care of this patient today ____ minutes.
--- NOTE | 2023-01-07 13:43 | HO.CARDIVERS ---
Cardioversion Procedure Note Cardioversion Date of Procedure: 01/07/23 Ordering Provider: Raheem Lewis Performing Provider: Raheem Lewis Indication for Procedure: PAF. JHA Performed with Transesophageal Echo: No Consent: Verbal and Written consent was obtained from the patient before starting. The patient was made aware of the risk of stroke, failure and skin capellan. Procedure: After consent obtained, defib pads were attached and the patient was sedated by the anesthesia team. Once adequate sedation achieved, single synchronized shock of 200 J was given. The patient converted to sinus rhythm. Complications: None Recommendations: Continue same medications. Please do not interrupt or miss Apixaban over the next 6 weeks. We will arrange a Holter monitor.
[2023-01-07 13:49] VITALS: BP 115/66; PULSE 77; RESP 20; TEMP 36.8; O2SAT 93
[2023-01-07 14:06] VITALS: BP 134/75; PULSE 79; RESP 18; TEMP 36.4; O2SAT 95
== END 2023-01-07 13:30 | disposition home or self-care (01) ==
PROVIDERS: PCP Internal Medicine; Visit Provider Internal Medicine Cardiovascular Disease
PROC: 5A2204Z Restoration of Cardiac Rhythm, Single (ICD-10-PCS; principal; 2023-01-07 13:20)
DX: I48.19 Other persistent atrial fibrillation (principal); Z79.01 Long term (current) use of anticoagulants; Z79.899 Other long term (current) drug therapy; L23.1 Allergic contact dermatitis due to adhesives; Z88.0 Allergy status to penicillin; Z88.8 Allergy status to other drugs, medicaments and biological substances
CPT/HCPCS: 92960; 93005

== ENCOUNTER → 2023-01-12 14:30 | Outpatient (BNVA) | payer MEDICARE, SELFPAY | PROVIDERS: Visit Provider Nurse Practitioner Family | DX: I48.91 Unspecified atrial fibrillation (principal) | CPT/HCPCS: 93005 ==

== ENCOUNTER 2023-01-28 11:36 | Day surgery (SDC) | payer MEDICARE, SELFPAY ==
--- NOTE | 2023-01-28 | ECG_ITS ---
Test Reason : s/p cardioversion Blood Pressure : / mmHG Vent. Rate : 070 BPM Atrial Rate : 070 BPM P-R Int : 186 ms QRS Dur : 100 ms QT Int : 402 ms P-R-T Axes : 035 002 008 degrees QTc Int : 434 ms Normal sinus rhythm Possible Inferior infarct (cited on or before 27-NOV-2022) Abnormal ECG When compared with ECG of 07-JAN-2023 13:56, No significant change was found Referred By: Raheem Lewis Electronically Signed By:Raheem Lewis
[2023-01-28 12:19] VITALS: BMI 32.3
[2023-01-28 12:26] VITALS: BP 121/82; PULSE 106; RESP 18; TEMP 36.7; O2SAT 94
--- NOTE | 2023-01-28 12:42 | MHC.SHP ---
Pre-Procedural Eval Section A Date of Service: 01/28/23 The patient is an INPATIENT: No The History & Physical has been completed within 30 days and I have reviewed it.: Yes Section B Chief Complaint: Other persistent atrial fibrillation Details of Present Illness: PAF. Here for cardioversion and potential admission for Sotalol loading. Relevant Family History (Specify if Yes): No Allergies: Allergies Allergy/AdvReac Type Severity Reaction Status Date / Time codeine [CODEINE] Allergy Intermediate loopy Verified 01/28/23 11:56 feeling hydrocodone Allergy Intermediate Vomiting Verified 01/28/23 11:56 pseudoephedrine Allergy Intermediate HEART Verified 01/28/23 11:56 [PSEUDOEPHEDRINE] PALPITATIONS Penicillins [PENICILLINS] AdvReac Intermediate C-DIFF Verified 01/28/23 11:56 diarrhea BANDAIDS Allergy Intermediate RASH Uncoded 12/17/22 14:24 Plan Diagnosis/Plan: Unchanged I have reviewed the history and physical and performed a pertinent physical examination on my patient. No changes have occurred unless specified. Time Spent With Patient Time: Total time managing care of this patient today ____ minutes.
--- NOTE | 2023-01-28 13:14 | HO.ANESPROP2 ---
HPI - Anesthesia Eval Consult details Narrative: for cardioversion Last cardioversion 3wks ago failed after 1 day. 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 (Acute) Dysphagia (Acute) Cellulitis of face (Acute) Nephrolithiasis (Acute) GERD (gastroesophageal reflux disease) (Acute) Gastropathy (Acute) Schatzki's ring (Acute) Hepatic steatosis (Acute) History of ETOH abuse (Acute) Past Medical History Medical History Arthritis Cirrhosis Diarrhea Gastropathy GERD (gastroesophageal reflux disease) Hepatic steatosis History of COVID-19 History of ETOH abuse Schatzki's ring Family History Family History Father Lung cancer Mother Thyroid condition HTN (hypertension) Lung cancer CVD (cardiovascular disease) Sister Breast cancer Son Pulmonary embolism Blood clot in vein Family history of problems with anesthesia: No Surgical History Surgical History History of back surgery History of esophagogastroduodenoscopy (EGD) Hx of cholecystectomy Hx of colonoscopy Hx of eye surgery History of Problems with Anesthesia: No Social History Social History (Updated 12/17/22 @ 14:25 by MARINO Gray) Household Members: Spouse Household Members Other:: adult children and grandchildren. Housing: House Do you presently have visiting nurse or other home services: No Alcohol intake: never Patient Tobacco Use Status: Never used Tobacco e-Cigarette/Vaping Use: Never Used Second Hand Smoke Exposure: No Use of substances other than those prescribed or required for medical reasons: No Are you DNR?: No Advance Directives: No Advance Directives Information Provided: Yes service: No Current occupational status: retired Cognitive needs: No Hearing needs: No Vision needs: No Meds Allergies Allergy/AdvReac Type Severity Reaction Status Date / Time codeine [CODEINE] Allergy Intermediate loopy Verified 01/28/23 11:56 feeling hydrocodone Allergy Intermediate Vomiting Verified 01/28/23 11:56 pseudoephedrine Allergy Intermediate HEART Verified 01/28/23 11:56 [PSEUDOEPHEDRINE] PALPITATIONS Penicillins [PENICILLINS] AdvReac Intermediate C-DIFF Verified 01/28/23 11:56 diarrhea BANDAIDS Allergy Intermediate RASH Uncoded 12/17/22 14:24 Home Medications Medication Instructions Recorded Confirmed Last Taken Type cyclosporine 0.05 % eye drops in a 1 drp ophthalmic (eye) Q12H 11/14/20 01/28/23 01/07/23 History dropperette (Restasis) tadalafil 5 mg tablet 5 mg PO DAILY PRN urinary urgency 02/19/21 01/28/23 Unknown History cholecalciferol (vitamin D3) 25 25 mcg PO DAILY 11/27/22 01/28/23 01/28/23 08:00 History mcg (1,000 unit) capsule (Vitamin D3) multivitamin 1 tab PO DAILY 11/27/22 01/28/23 01/28/23 08:00 History azithromycin 250 mg tablet 250 mg PO DAILY 01/28/23 01/28/23 01/28/23 08:00 History ofloxacin 0.3 % eye drops 1 drp BID 01/28/23 01/28/23 01/28/23 08:00 History Exam Exam Date and Time: January 28, 2023 1314 Height,Weight and Vital Signs: Height 6 ft Weight 107.955 kg Last Vital Signs Temp 98.1 F 01/28/23 12:26 Pulse 106 H 01/28/23 12:26 Resp 18 01/28/23 12:26 BP 121/82 01/28/23 12:26 Pulse Ox 94 01/28/23 12:26 O2 Del Method Room Air 01/28/23 12:26 Airway Mallampati Class: I TM Dist: >3cm Heart: afib Other: ok Assessment and Plan Assessment Anesthesia Assessment: Anesthesia Plan Discussed and Chart Reviewed Final Anesthetic Review Family History of Problems with Anesthesia: No History of Problems with Anesthesia: No NPO: Yes ASA Class: III Final Preanesthetic Review: No Changes in Pt Med Stat, Meds/Allgs Chart Reviewed, Consent Obtained/Reviewed and Anes Risks/Benef Reviewed Patient Risk: Intermediate Procedure Risk: Intermediate Anesthetic Plan Anesthetic Plan: MAC: and Agree w/ Assess. and Plan Disposition: Standard PACU
[2023-01-28 13:49] VITALS: BP 116/73; PULSE 76; RESP 20; TEMP 36.3; O2SAT 94
[2023-01-28 14:04] VITALS: BP 127/83; PULSE 77; RESP 16; TEMP 36.5; O2SAT 94
--- NOTE | 2023-01-28 14:23 | HO.CARDIVERS ---
Cardioversion Procedure Note Cardioversion Date of Procedure: 01/28/23 Ordering Provider: Raheem Lewis MD Performing Provider: Raheem Lewis MD Indication for Procedure: PAF Consent: Verbal and Written consent was obtained from the patient before starting. The patient was made aware of the risk of stroke, failure, skin irritation. Procedure: After consent obtained, defib pads were attached and the patient was sedated by the anesthesia team. Once adequate sedation achieved, single synchronized shock of 200 J was given which converted him to sinus rhythm. Complications: None Recommendations: Discharge home. Continue same medications. We will arrange stress test soon and if it is normal then add Flecainide. Original plan was to admit for sotalol load but he has been given prescription by dentist for Z-pack which he is taking x 10 days.
== END 2023-01-28 15:00 | disposition home or self-care (01) ==
PROVIDERS: PCP Internal Medicine; Visit Provider Internal Medicine Cardiovascular Disease
PROC: 5A2204Z Restoration of Cardiac Rhythm, Single (ICD-10-PCS; principal; 2023-01-28 13:20)
DX: I48.19 Other persistent atrial fibrillation (principal); L23.1 Allergic contact dermatitis due to adhesives; Z79.01 Long term (current) use of anticoagulants; Z79.899 Other long term (current) drug therapy; Z88.0 Allergy status to penicillin; Z88.8 Allergy status to other drugs, medicaments and biological substances
CPT/HCPCS: 92960; 93005

== ENCOUNTER → 2023-02-02 09:37 | Outpatient (REF) | payer MEDICARE, SELFPAY | LOC: HO.CARD 09:37 | PROVIDERS: PCP Internal Medicine; Visit Provider Internal Medicine Cardiovascular Disease | DX: Z13.89 Encounter for screening for other disorder (principal) ==

== ENCOUNTER → 2023-02-23 07:42 | Outpatient (REF) | payer MEDICARE, SELFPAY ==
--- NOTE | ~2023-02-23 | NM_ITS ---
Myocardial perfusion study Indication: Atrial fibrillation to evaluate for myocardial ischemia Technique: The patient was brought in for a Lexiscan perfusion study on 02/23/2023. Patient performed low-level exercise and was injected 0.4 mg of Lexiscan intravenously. Within a minute of injection, 35 mCi of sestamibi was given intravenously. Images were obtained using the SPECT gamma camera interlaced with the gating device. Images were obtained in supine position. Resting perfusion study was performed on 02/24/2023. Patient was administered 35 mCi of sestamibi intravenously at rest. Images were then obtained in supine position. Images obtained with and without CT attenuation. Total DLP 98 mGy-cm. Images were processed with the software and compared side to side in short axis, horizontal long axis and vertical long axis views. Findings: The stress perfusion study showed non attenuated images show mildly reduced uptake in the basal inferior wall of the LV myocardium as well as the basal inferolateral wall of the LV myocardium. Remainder of the LV myocardium is normally perfused. Attenuation corrected images show minimal thinning of the apex of the LV myocardium.. The gated study shows normal LV systolic function with calculated LVEF of 60%. LV cavity is normal in size. The gated study shows normal systolic wall thickening and contraction of segments. Resting study shows nontender images show moderately reduced uptake in the basal inferior and moderately reduced uptake in the mid and apical inferior wall of the LV myocardium.. Gating at rest was not performed.. The findings are consistent with normal myocardial perfusion. NM/NM cardiolite stress test Impression: 1. Myocardial perfusion imaging study shows normal myocardial perfusion 2. Gated LVEF is 60% 3. Transient ischemic dilatation not present EKG is nondiagnostic for ischemia
--- NOTE | 2023-02-23 07:46 | CA_ITS ---
Acquisition Time: 2023-02-23 08:04:29 Total Exercise Time: 00:02:00 Test Indications: Dyspnea AFIB Medications: SEE H Protocol: LEXISCAN Max HR: 155 BPM 101% of Pred: 152 BPM Max BP: 154/082 mmHG Max Work Load: 1.0 METS Pharmacological stress test with Lexiscan injection, while sitting and kicking his legs, with mild sob post injection, no chest discomfort, with isolated PVC, with normotensive response to injection, with nondiagnostic EKG for ischemia. In recovery his heart rate was elevated and it was treated with Aminophylline 75mg IVP to reverse Lexiscan. Nuclear images pending. Test reviewed with Dr Simon. Referred By: Vanessa Haile Overread By: VANESSA HAILE
== END ==
LOC: HO.CARD 07:42
PROVIDERS: Visit Provider Nurse Practitioner Family
DX: I48.19 Other persistent atrial fibrillation (principal)
CPT/HCPCS: 78452; 93017; A9500; J0280; J2785

== ENCOUNTER → 2023-03-09 08:22 | Outpatient (BNVA) | payer MEDICARE, SELFPAY | PROVIDERS: Visit Provider Nurse Practitioner Family | DX: I48.91 Unspecified atrial fibrillation (principal); R94.31 Abnormal electrocardiogram [ECG] [EKG] | CPT/HCPCS: 93005; Q3014 ==

== ENCOUNTER 2023-03-11 09:01 | Day surgery (SDC) | payer MEDICARE, SELFPAY ==
--- NOTE | 2023-03-10 11:46 | P.CONAN_ITS ---
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) Dysphagia (Acute) Cellulitis of face (Acute) Nephrolithiasis (Acute) GERD (gastroesophageal reflux disease) (Acute) Gastropathy (Acute) Schatzki's ring (Acute) Hepatic steatosis (Acute) History of ETOH abuse (Acute) Past Medical History Medical History (Updated 03/11/23 @ 10:04 by Marianela Eldridge RN) Afib Arthritis Cirrhosis Diarrhea Gastropathy GERD (gastroesophageal reflux disease) Hepatic steatosis History of cardioversion History of COVID-19 History of ETOH abuse HTN (hypertension) Schatzki's ring Family History Family History Father Lung cancer Mother Thyroid condition HTN (hypertension) Lung cancer CVD (cardiovascular disease) Sister Breast cancer Son Pulmonary embolism Blood clot in vein Family history of problems with anesthesia: No Surgical History Surgical History History of back surgery History of esophagogastroduodenoscopy (EGD) Hx of cholecystectomy Hx of colonoscopy Hx of eye surgery History of Problems with Anesthesia: No Social History Social History (Updated 12/17/22 @ 14:25 by MARINO Gray) Household Members: Spouse Household Members Other:: adult children and grandchildren. Housing: House Do you presently have visiting nurse or other home services: No Alcohol intake: never Patient Tobacco Use Status: Never used Tobacco e-Cigarette/Vaping Use: Never Used Second Hand Smoke Exposure: No Use of substances other than those prescribed or required for medical reasons: No Are you DNR?: No Advance Directives: No Advance Directives Information Provided: Yes service: No Current occupational status: retired Cognitive needs: No Hearing needs: No Vision needs: No Meds Allergies Allergy/AdvReac Type Severity Reaction Status Date / Time codeine [CODEINE] Allergy Intermediate loopy Verified 01/28/23 11:56 feeling hydrocodone Allergy Intermediate Vomiting Verified 01/28/23 11:56 pseudoephedrine Allergy Intermediate HEART Verified 01/28/23 11:56 [PSEUDOEPHEDRINE] PALPITATIONS Penicillins [PENICILLINS] AdvReac Intermediate C-DIFF Verified 01/28/23 11:56 diarrhea BANDAIDS Allergy Intermediate RASH Uncoded 12/17/22 14:24 Home Medications Medication Instructions Recorded Confirmed Last Taken Type cyclosporine 0.05 % eye drops in a 1 drp ophthalmic (eye) Q12H 11/14/20 03/11/23 01/07/23 History dropperette (Restasis) tadalafil 5 mg tablet 5 mg PO DAILY PRN urinary urgency 02/19/21 03/11/23 Unknown History cholecalciferol (vitamin D3) 25 25 mcg PO DAILY 11/27/22 03/11/23 01/28/23 08:00 History mcg (1,000 unit) capsule (Vitamin D3) multivitamin 1 tab PO DAILY 11/27/22 03/11/23 01/28/23 08:00 History Fish Oil PO DAILY 03/11/23 Unknown History metoprolol succinate 100 mg 50 mg PO DAILY 03/11/23 03/11/23 03/11/23 08:00 History tablet,extended release 24 hr Exam Exam Date and Time: March 10, 2023 1146 Pertinent Lab Results Pertinent Lab Results: Laboratory Tests 11/29/22 11/29/22 05:36 05:36 WBC 8.8 Hgb 16.5 Hct 49.5 Plt Count 238 Sodium 141 Potassium 4.2 Chloride 104 Carbon Dioxide 28 BUN 12 Creatinine 0.80 Narrative Narrative: NM cardiolite stress test 02/2023 Impression: ? 1.? Myocardial perfusion imaging study shows normal myocardial perfusion 2.? Gated LVEF is 60% 3. Transient ischemic dilatation not present ? EKG is nondiagnostic for ischemia ECHO 11/2022 Conclusions: - Normal left ventricular size and systolic function. There is ? mildly increased left ventricular wall thickness.? The visually? estimated ejection fraction is between 55-60%. ? - Normal right ventricular cavity size and systolic function.? Assessment and Plan Assessment Anesthesia Assessment: Chart Reviewed Final Anesthetic Review Family History of Problems with Anesthesia: No History of Problems with Anesthesia: No Documented by User: Meggan Negro MD 03/11/23 10:12 PMF Past Medical History Medical History (Updated 03/11/23 @ 10:04 by Marianela Eldridge RN) Afib Arthritis Cirrhosis Diarrhea Gastropathy GERD (gastroesophageal reflux disease) Hepatic steatosis History of cardioversion History of COVID-19 History of ETOH abuse HTN (hypertension) Schatzki's ring Family History Family History Father Lung cancer Mother Thyroid condition HTN (hypertension) Lung cancer CVD (cardiovascular disease) Sister Breast cancer Son Pulmonary embolism Blood clot in vein Surgical History Surgical History History of back surgery History of esophagogastroduodenoscopy (EGD) Hx of cholecystectomy Hx of colonoscopy Hx of eye surgery Social History Social History (Updated 12/17/22 @ 14:25 by MARINO Gray) Household Members: Spouse Household Members Other:: adult children and grandchildren. Housing: House Do you presently have visiting nurse or other home services: No Alcohol intake: never Patient Tobacco Use Status: Never used Tobacco e-Cigarette/Vaping Use: Never Used Second Hand Smoke Exposure: No Use of substances other than those prescribed or required for medical reasons: No Are you DNR?: No Advance Directives: No Advance Directives Information Provided: Yes service: No Current occupational status: retired Cognitive needs: No Hearing needs: No Vision needs: No Meds Allergies Allergy/AdvReac Type Severity Reaction Status Date / Time codeine [CODEINE] Allergy Intermediate loopy Verified 01/28/23 11:56 feeling hydrocodone Allergy Intermediate Vomiting Verified 01/28/23 11:56 pseudoephedrine Allergy Intermediate HEART Verified 01/28/23 11:56 [PSEUDOEPHEDRINE] PALPITATIONS Penicillins [PENICILLINS] AdvReac Intermediate C-DIFF Verified 01/28/23 11:56 diarrhea BANDAIDS Allergy Intermediate RASH Uncoded 12/17/22 14:24 Home Medications Medication Instructions Recorded Confirmed Last Taken Type cyclosporine 0.05 % eye drops in a 1 drp ophthalmic (eye) Q12H 11/14/20 03/11/23 01/07/23 History dropperette (Restasis) tadalafil 5 mg tablet 5 mg PO DAILY PRN urinary urgency 02/19/21 03/11/23 Unknown History cholecalciferol (vitamin D3) 25 25 mcg PO DAILY 11/27/22 03/11/23 01/28/23 08:00 History mcg (1,000 unit) capsule (Vitamin D3) multivitamin 1 tab PO DAILY 11/27/22 03/11/23 01/28/23 08:00 History Fish Oil PO DAILY 03/11/23 Unknown History metoprolol succinate 100 mg 50 mg PO DAILY 03/11/23 03/11/23 03/11/23 08:00 History tablet,extended release 24 hr Exam Airway Mallampati Class: II (cap too front ) TM Dist: >3cm Neck ROM: Full Heart: rrr Lungs: cta Assessment and Plan Assessment Anesthesia Assessment: Anesthesia Plan Discussed Final Anesthetic Review NPO: Yes ASA Class: III Final Preanesthetic Review: No Changes in Pt Med Stat, Meds/Allgs Chart Reviewed and Consent Obtained/Reviewed Patient Risk: Intermediate Procedure Risk: Intermediate Anesthetic Plan Anesthetic Plan: MAC: Disposition: Standard PACU
--- NOTE | 2023-03-11 | ECG_ITS ---
Test Reason : s/p cardioversion Blood Pressure : / mmHG Vent. Rate : 075 BPM Atrial Rate : 075 BPM P-R Int : 204 ms QRS Dur : 108 ms QT Int : 416 ms P-R-T Axes : 041 019 016 degrees QTc Int : 464 ms Sinus rhythm with Premature atrial complexes with Aberrant conduction Otherwise normal ECG When compared with ECG of 28-JAN-2023 13:51, Aberrant conduction is now Present Referred By: Raheem Lewis Electronically Signed By:Raheem Lewis
[2023-03-11 09:34] VITALS: BMI 30.5
[2023-03-11 10:01] VITALS: BP 121/68; PULSE 100; RESP 18; TEMP 36.8; O2SAT 96
[2023-03-11] MEDS: Lactated Ringers 1,000 ML 50 ML IVCONT (10:18)
--- NOTE | 2023-03-11 11:06 | MHC.SHP ---
Pre-Procedural Eval Section A Date of Service: 03/11/23 The patient is an INPATIENT: No The History & Physical has been completed within 30 days and I have reviewed it.: Yes Section B Chief Complaint: Other persistent atrial fibrillation Allergies: Allergies Allergy/AdvReac Type Severity Reaction Status Date / Time codeine [CODEINE] Allergy Intermediate loopy Verified 03/11/23 10:19 feeling hydrocodone Allergy Intermediate Vomiting Verified 03/11/23 10:19 pseudoephedrine Allergy Intermediate HEART Verified 03/11/23 10:19 [PSEUDOEPHEDRINE] PALPITATIONS Penicillins [PENICILLINS] AdvReac Intermediate C-DIFF Verified 03/11/23 10:19 diarrhea BANDAIDS Allergy Intermediate RASH Uncoded 12/17/22 14:24 Plan Diagnosis/Plan: Unchanged I have reviewed the history and physical and performed a pertinent physical examination on my patient. No changes have occurred unless specified. Time Spent With Patient Time: Total time managing care of this patient today ____ minutes.
--- NOTE | 2023-03-11 11:11 | HO.CARDIVERS ---
Cardioversion Procedure Note Cardioversion Date of Procedure: 03/11/23 Ordering Provider: Raheem Lewis Performing Provider: Raheem Lewis Indication for Procedure: Afib, JHA History: 67-year-old with PAF and JHA. Consent: Verbal and Written consent was obtained from the patient before starting. The patient was made aware of the risk of stroke, arrhythmia and skin capellan Procedure: After consent obtained, defib pads were attached and the patient was sedated by the anesthesia team. Once adequate sedation achieved, single synchronized shock of 120 J was given. The patient converted to sinus rhythm. Complications: None Recommendations: c/w Flecainide and Eliquis. We will arrange follow up.
[2023-03-11 11:20] VITALS: BP 119/77; PULSE 71; RESP 22; TEMP 36.9; O2SAT 96
[2023-03-11 11:35] VITALS: BP 129/69; PULSE 71; RESP 20; TEMP 36.9; O2SAT 94
== END 2023-03-11 12:03 | disposition home or self-care (01) ==
PROVIDERS: PCP Internal Medicine; Visit Provider Internal Medicine Cardiovascular Disease
PROC: 5A2204Z Restoration of Cardiac Rhythm, Single (ICD-10-PCS; principal; 2023-03-11 11:00)
DX: I48.19 Other persistent atrial fibrillation (principal); R06.00 Dyspnea, unspecified; Z79.01 Long term (current) use of anticoagulants; I10 Essential (primary) hypertension; Z79.899 Other long term (current) drug therapy; Z88.0 Allergy status to penicillin; Z88.8 Allergy status to other drugs, medicaments and biological substances; L23.1 Allergic contact dermatitis due to adhesives
CPT/HCPCS: 92960; 93005

== ENCOUNTER → 2023-03-18 09:47 | Outpatient (BNVA) | payer MEDICARE, SELFPAY | PROVIDERS: PCP Internal Medicine; Visit Provider Internal Medicine Cardiovascular Disease ==

== ENCOUNTER 2023-03-18 10:31 | Emergency (ER) | payer MEDICARE, SELFPAY ==
[2023-03-18] VITALS (11 sets, daily range): BP systolic 124–162; BP diastolic 69–87; PULSE 68–118; RESP 12–26; TEMP 36.8; O2SAT 91–98; BMI 33.1
--- NOTE | 2023-03-18 10:53 | PC.NURSE ---
Alert and oriented. arrived from cardiology stating that he was cardioverted last week and was in NSR but over the weekend converted from NSR to afib. Denies chest pain or SOB. Afib on monitor. States took all morning meds before going to cardiology.
--- NOTE | 2023-03-18 12:04 | ED.ARRPALP ---
HPI - Arrhythmia/Palpitations General Chief Complaint: Arrhythmia/Palpitations Stated Complaint: Afib Time Seen by Provider: 03/18/23 10:41 Source: patient Mode of arrival: ambulatory Limitations: no limitations History of Present Illness HPI narrative: Palpitations in chest and throat. Went to see Dr. Lewis as he was cardioverted 9 days ago. Knew that he was in afib now, so he was sent to the ED. MD complaint: palpitations Related Data Home Medications Medication Instructions Recorded Confirmed cyclosporine 0.05 % eye drops in a 1 drp ophthalmic (eye) Q12H 11/14/20 03/11/23 dropperette (Restasis) tadalafil 5 mg tablet 5 mg PO DAILY PRN urinary urgency 02/19/21 03/11/23 cholecalciferol (vitamin D3) 25 25 mcg PO DAILY 11/27/22 03/11/23 mcg (1,000 unit) capsule (Vitamin D3) multivitamin 1 tab PO DAILY 11/27/22 03/11/23 Fish Oil PO DAILY 03/11/23 metoprolol succinate 100 mg 50 mg PO DAILY 03/11/23 03/18/23 tablet,extended release 24 hr Previous Rx's Medication Instructions Recorded sucralfate 1 gram tablet 1 g PO BID #60 tabs 10/14/22 amlodipine 5 mg tablet 5 mg PO DAILY@1800 #90 tabs 12/25/22 lisinopril 20 mg tablet 20 mg PO BID #180 tabs 12/25/22 pantoprazole 40 mg tablet,delayed 40 mg PO BID #60 tabs 01/08/23 release apixaban 5 mg tablet (Eliquis) 5 mg PO BID 90 days #180 tabs 02/17/23 flecainide 100 mg tablet 100 mg PO Q12H #100 tabs 03/18/23 flecainide 100 mg tablet 100 mg PO Q12H #60 tabs 03/18/23 Allergies Allergy/AdvReac Type Severity Reaction Status Date / Time codeine [CODEINE] Allergy Intermediate loopy Verified 03/11/23 10:19 feeling hydrocodone Allergy Intermediate Vomiting Verified 03/11/23 10:19 pseudoephedrine Allergy Intermediate HEART Verified 03/11/23 10:19 [PSEUDOEPHEDRINE] PALPITATIONS Penicillins [PENICILLINS] AdvReac Intermediate C-DIFF Verified 06/28/23 10:19 diarrhea BANDAIDS Allergy Intermediate RASH Uncoded 12/17/22 14:24 Review of Systems Review of Systems: Yes all other systems are reviewed and are negative Neurologic: Denies Sensory deficit (Neuro) [facility] Past Medical History Medical History Afib Arthritis Cirrhosis Diarrhea Gastropathy GERD (gastroesophageal reflux disease) Hepatic steatosis History of cardioversion History of COVID-19 History of ETOH abuse HTN (hypertension) Schatzki's ring Surgical History History of back surgery History of esophagogastroduodenoscopy (EGD) Hx of cholecystectomy Hx of colonoscopy Hx of eye surgery Family History Family History Father Lung cancer Mother Thyroid condition HTN (hypertension) Lung cancer CVD (cardiovascular disease) Sister Breast cancer Son Pulmonary embolism Blood clot in vein Social History Social History Household Members: Spouse Household Members Other:: adult children and grandchildren. Housing: House Do you presently have visiting nurse or other home services: No Alcohol intake: never Patient Tobacco Use Status: Never used Tobacco Smoked in Last 30 Days: No e-Cigarette/Vaping Use: Never Used Second Hand Smoke Exposure: No Use of substances other than those prescribed or required for medical reasons: No Advance Directives: No Advance Directives Information Provided: Yes service: No Current occupational status: retired Cognitive needs: No Hearing needs: No Vision needs: No Physical Exam Vital Signs: Vital Signs: Last Vital Signs Temp 98.2 F 03/18/23 15:37 Pulse 70 03/18/23 15:42 Resp 18 03/18/23 15:42 BP 132/80 03/18/23 15:42 Pulse Ox 98 03/18/23 15:42 O2 Del Method Room Air 03/18/23 15:42 O2 Flow Rate 5 03/18/23 15:37 Oxygen Flow Rate 5 03/18/23 15:20 BMI result Body Mass Index 33.1 Const: General: healthy appearing Nutritional Appearance: average body habitus Orientation/consciousness: oriented to person and patient oriented x3 Limitations: no limitations HEENT: Head: Yes normal to inspection Ears: external ears normal General nose exam: Normal external nose present Mouth: Normal oral and palatal mucosa present and oropharynx normal Throat: Yes posterior oropharynx normal Eyes: General: appearance normal, both eyes and all related structures Neck: Other: supple Neck: Yes normal visual inspection Chest: Chest palpation & inspection: normal inspection of the chest Resp: Auscultation: clear to auscultation bilaterally Cardio: Other: tachycardia IRRR, Jugular venous distension: no JVD GI: Inspection: Yes normal to inspection Palpation (GI): Soft to palpation, nontender and No hepatosplenomegaly present Auscultation: normal bowel sounds : General: Yes no CVA tenderness Back/Spine/Pelvis: Back: no CVA tenderness Skin: General skin exam: no rashes or lesions noted Neuro: General: oriented to person and patient oriented x3 Cranial nerves: Yes CN's II-XII intact bilaterally Motor exam (neuro): 5/5 motor strength present throughout Sensory Exam: No Sensory deficit (Neuro) Extrem: General: Yes normal to inspection Psych: Appearance: grossly normal Course Reevaluation(s) Reevaluation #1: patient was loaded with flecanide despite that he did not cardiovert. He had conscious sedation and was cardioverted, patient tolerated procedure well. Time: 16:35 Reevaluation #2: I spent 40 minutes of critical care, with interventions, assessments, speaking to patient, consultants, and family. Time: 16:37 Medications Administered Discontinued Medications Generic Name Dose Route Start Last Admin Trade Name Freq PRN Reason Stop Dose Admin Flecainide Acetate 50 mg 03/18/23 10:42 03/18/23 11:00 Flecainide Acetate 50 Mg Tablet PO 03/18/23 10:43 50 mg ONCE ONE Administration Flecainide Acetate 250 mg 03/18/23 12:03 03/18/23 12:24 Flecainide Acetate 50 Mg Tablet PO 03/18/23 12:04 250 mg ONCE ONE Administration Propofol 300 mg 03/18/23 14:47 03/18/23 15:14 Propofol 200 Mg/20 Ml Vial IVPUSH 03/18/23 14:48 100 mg ONCE ONE Administration Medical Decision Making Differential Diagnosis Differential Diagnoses: The differential diagnosis associated with the presentation includes (atrial fibrillation, rapid ventricular response) Admission/Observation Consideration of admission/observation: Escalation of care including admission/observation considered (upon arrival this patient with rapid atrial fibrillation was considered for admission) Consult Healthcare Provider Management of the patient was discussed with: Transit Bus Operator (Dr. Lewis cardiology) Lab Data MDM Lab Attestation statement: I reviewed the patient's lab results. (normal electrolytes, normal troponin) 03/18/23 11:05 03/18/23 11:28 Labs: Lab Results 03/18/23 03/18/23 03/18/23 Range/Units 11:05 11:28 11:28 WBC 7.8 (4.8-10.8) X10*3/uL RBC 6.02 H (4.60-5.80) X10*6/uL Hgb 16.6 (14.0-18.0) g/dl Hct 50.9 (42.0-52.0) % MCV 84.6 (80.0-98.0) fL MCH 27.6 (27.0-33.0) pg MCHC 32.6 (31.0-36.0) g/dl RDW 14.5 (11.0-16.0) % Plt Count 263 (160-400) X10*3/uL MPV 9.1 L (9.4-12.4) fL Immature Gran % (Auto) 0.4 (0.0-0.4) % Neut % (Auto) 62.7 (45-73) % Lymph % (Auto) 23.2 (20-40) % [place] % (Auto) 10.2 (2-11) % Eos % (Auto) 2.7 (0-4) % Baso % (Auto) 0.8 (0-2) % Lymph # (Auto) 1.8 (1.2-4.9) X10*3/uL [place] # (Auto) 0.8 (0.1-1.2) X10*3/uL Eos # (Auto) 0.2 (0.0-0.4) X10*3/uL Baso # (Auto) 0.1 (0.0-0.2) X10*3/uL Abs Immat Gran (auto) 0.03 (0.00-0.03) X10*3/uL Absolute Neuts (auto) 4.9 (2.0-8.3) x10*3/uL Absolute Nucleated RBC 0.000 (0.0-0.012) X10*3/uL Nucleated RBC % (auto) 0.0 (0.0-0.2) /100WBC Sodium 141 (135-145) mmol/L Potassium 4.5 (3.3-5.1) mmol/L Chloride 104 (96-108) mmol/L Carbon Dioxide 28 (22-29) mmol/L Anion Gap 14 (12-20) BUN 12 (9-16) mg/dL Creatinine 0.76 (0.5-1.4) mg/dL Estim Creat Clear Calc 116.1 Estimated GFR > 60 Random Glucose 114 (60-115) mg/dL Calcium 9.8 D (8.4-10.2) mg/dL Troponin I High Sens < 2.7 (<3.5-35.0) ng/L Independent Interpretation I performed an independent interpretation of an: EKG (#1 rapid atrial fibrillation, #2 sinus RBBB rate 70, no st or twave changes) Independent Historian Clinical information obtained from an independent historian. History obtained from or confirmed by: Spouse and Other (Dr. Lewis) Chronic Conditions Patient?s care impacted by: Other (atrial fibrillation) Procedures Procedure Narrative Procedure Narrative: Moderate sedation and cardioversion: patient consented, propofol used for anesthesia, syncronized cardioversion with 120J performed. Patient tolerate procedure well. Discharge Plan Discharge Clinical Impression: Atrial fibrillation Patient Disposition: Home, Self-Care Instructions: A-fib (Atrial Fibrillation) (ED), Blood Thinners (ED) Prescriptions: New flecainide 100 mg tablet 100 mg PO Q12H Qty: 60 0RF No Action sucralfate 1 gram tablet 1 g PO BID Qty: 60 0RF amlodipine 5 mg tablet 5 mg PO DAILY@1800 Qty: 90 3RF lisinopril 20 mg tablet 20 mg PO BID Qty: 180 3RF pantoprazole 40 mg tablet,delayed release (DR/EC) 40 mg PO BID Qty: 60 3RF Eliquis 5 mg tablet 5 mg PO BID 90 Days Qty: 180 3RF flecainide 100 mg tablet 100 mg PO Q12H Qty: 100 3RF multivitamin Tablet 1 tab PO DAILY cholecalciferol (vitamin D3) [Vitamin D3] 25 mcg (1,000 unit) Capsule 25 mcg PO DAILY metoprolol succinate 100 mg tablet extended release 24 hr 50 mg PO DAILY Fish Oil PO DAILY Restasis 0.05 % dropperette 1 drp ophthalmic (eye) Q12H tadalafil 5 mg tablet 5 mg PO DAILY PRN (Reason: urinary urgency) Referrals: Raheem Lewis MD [Physician] - 5 days
--- NOTE | 2023-03-18 12:37 | PC.NURSE ---
Patient remains in afib, seen by provider, po meds given per order.
--- NOTE | 2023-03-18 13:36 | PC.NURSE ---
Ambulating to bathroom independently, remains in afib, vss, at bedside
--- NOTE | 2023-03-18 14:35 | PC.NURSE ---
Remains in afib, patient asymptomatic. Denies chest pain, sob, or palpitations at this time.
--- NOTE | 2023-03-18 15:27 | PC.NURSE ---
Consent for oderate sedation completed by physician , asa of 2 signed by MD. Safety equipment at bedside, respiratory at bedside. Time out at 1510, 50 mg of propofol given at 1512 with an additional 50mg propofol given at 1514, tolerated well by patient. Converted into NSR. Physician at bedside throughout. VSS. Alert and oriented, denies any pain or discomfort.
--- NOTE | 2023-03-18 16:03 | PC.NURSE ---
Alert and oriented. BP 150/90. Denies pamela or discomfort. 02 turned down to 2 liters sating 96%. at bedside.
--- NOTE | 2023-03-18 16:31 | PC.NURSE ---
Alert and oriented. NSR on monitor. 94% on RA. Denies any pain or discomfort. Pads removed. BP 139/92, pulse 70
--- NOTE | 2023-03-18 16:51 | PC.NURSE ---
Discharge instructions reviewed with patient and . Both verbalized understanding. Patient in NSR, no complaints of any chest pain
== END 2023-03-18 17:02 | disposition home or self-care (01) ==
PROVIDERS: Emergency Provider Emergency Medicine; PCP Internal Medicine Hematology & Oncology
DX: I48.0 Paroxysmal atrial fibrillation (principal); I10 Essential (primary) hypertension; K21.9 Gastro-esophageal reflux disease without esophagitis; Z79.01 Long term (current) use of anticoagulants; Z79.899 Other long term (current) drug therapy
CPT/HCPCS: 36415; 80048; 84484; 85025; 92960; 93005; 96374; 99211; 99285

== ENCOUNTER 2023-03-31 09:42 | Outpatient (AMB) | payer MEDICARE, SELFPAY ==
--- NOTE | 2023-03-31 10:20 | AM.OFFVISNUR ---
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 Patient has been cardioverted on 03/11/23 and again on 03/18/2023. He is currently on Flecainide 100mg BID, Metoprolol 50mg QD, and Eliquis 5mg BID. He reports strong palpitations and mild shortness of breath. EKG today shows auto reading of a-fib with heart rate of 74BPM. Dr. Simon confirmed it was A-fib, contacted Dr. Lewis via telephone advises patient hold Flecainide today 03/31, tomorrow 04/01 and start Amiodarone 400mg BID on 04/02/23. Pt made aware and understood. He has multiple other health issues; polyps, urology issues w/ his prostate, a broken tooth that needs root canal repair and is also wondering if he is able to engage in sexual activity. He wants to know if he should hold off on everything or if okay to receive treatment for his other health issues. Please advise. EKG on desk for review and signature. (this note sent to in workload message for further discussion and documentation) Office Procedures EKG [id number], Complete Coding Diagnoses CPT Codes EKG - CPT: 75004-[id number], Complete ([id number]) Assessment & Plan Assessment & Plan Medications: Discontinued metoprolol succinate ER 50 mg (1/2 x 100 mg) PO BID 90 days 90 tabs 3RF I10 - Essential (primary) hypertension
== END 2023-03-31 10:41 | disposition home or self-care (01) ==
PROVIDERS: PCP Internal Medicine Hematology & Oncology; Visit Provider Internal Medicine Cardiovascular Disease
DX: I48.91 Unspecified atrial fibrillation (principal)
CPT/HCPCS: 93010

== ENCOUNTER → 2023-03-31 09:42 | Outpatient (BNVA) | payer MEDICARE, SELFPAY | PROVIDERS: PCP Internal Medicine Hematology & Oncology; Visit Provider Internal Medicine Cardiovascular Disease | DX: I48.91 Unspecified atrial fibrillation (principal); I10 Essential (primary) hypertension | CPT/HCPCS: 93005 ==

== ENCOUNTER 2023-04-16 09:29 | Outpatient (AMB) | payer MEDICARE, SELFPAY ==
--- NOTE | 2023-04-16 09:58 | AM.OFFVISNUR ---
Intake Intake Visit Reasons: 2 WEEK EKG SWITCHED FROM FLECAINIDE TO AMIO Accompanied by: Spouse Allergies codeine [CODEINE] Allergy (Intermediate, Verified 04/16/23 09:58) loopy feeling hydrocodone Allergy (Intermediate, Verified 04/16/23 09:58) Vomiting pseudoephedrine [PSEUDOEPHEDRINE] Allergy (Intermediate, Verified 04/16/23 09:58) HEART PALPITATIONS Penicillins [PENICILLINS] Adverse Reaction (Intermediate, Verified 04/16/23 09:58) C-DIFF diarrhea BANDAIDS Allergy (Intermediate, Uncoded 04/16/23 09:58) RASH Nursing Note EKG completed. Patient on Amiodarone 200 MG BID. EKG shows auto reading of AFib w/ a heart rate of 76bpm. Patient reports feeling good today. EKG left on Dr. Joshua pack for review. Office Procedures EKG [id number], Complete Coding Diagnoses CPT Codes EKG - CPT: 61669-[id number], Complete ([id number]) Assessment & Plan Assessment & Plan Medications: Discontinued metoprolol succinate ER 50 mg (1/2 x 100 mg) PO BID 90 days 90 tabs 3RF I10 - Essential (primary) hypertension
== END 2023-04-16 11:01 | disposition home or self-care (01) ==
PROVIDERS: PCP Internal Medicine Hematology & Oncology; Referring Provider Internal Medicine Hematology & Oncology; Visit Provider Internal Medicine Cardiovascular Disease
DX: I48.91 Unspecified atrial fibrillation (principal); R94.31 Abnormal electrocardiogram [ECG] [EKG]
CPT/HCPCS: 93010

== ENCOUNTER → 2023-04-16 09:29 | Outpatient (BNVA) | payer MEDICARE, SELFPAY | PROVIDERS: PCP Internal Medicine Hematology & Oncology; Referring Provider Internal Medicine Hematology & Oncology; Visit Provider Internal Medicine Cardiovascular Disease | DX: I10 Essential (primary) hypertension (principal) | CPT/HCPCS: 93005 ==

== ENCOUNTER 2023-05-05 10:30 | Outpatient (REF) | payer MEDICARE, SELFPAY ==
[2023-05-05 13:08] LABS: MANUAL DIFF FLAG NO
[2023-05-05 13:35] LABS: Basophils Absolute Auto 0.1 X10*3/uL (0.0-0.2); Basophils Percent Auto 0.8 % (0-2); Eosinophils Absolute Auto 0.2 X10*3/uL (0.0-0.4); Eosinophils Percent Auto 1.9 % (0-4); Hematocrit 48.2 % (42.0-52.0); Hemoglobin 15.6 g/dl (14.0-18.0); Imm Gran Abs Auto 0.04 X10*3/uL (0.00-0.03); Imm Gran Pct Auto 0.5 % (0.0-0.4); Lymphocytes Absolute Auto 1.5 X10*3/uL (1.2-4.9); Lymphocytes Percent Auto 17.8 % (20-40); Mean Corpuscular HGB Conc 32.4 g/dl (31.0-36.0); Mean Corpuscular Hemoglobin 27.6 pg (27.0-33.0); Mean Corpuscular Volume 85.3 fL (80.0-98.0); Mean Platelet Volume 9.3 fL (9.4-12.4); Monocytes Absolute Auto 0.9 X10*3/uL (0.1-1.2); Monocytes Percent Auto 10.1 % (2-11); Neutrophils Absolute Auto 5.9 x10*3/uL (2.0-8.3); Neutrophils Percent Auto 68.9 % (45-73); Platelet Count 336 X10*3/uL (160-400); Red Blood Count 5.65 X10*6/uL (4.60-5.80); Red Cell Distribution Width 14.9 % (11.0-16.0); White Blood Count 8.5 X10*3/uL (4.8-10.8)
[2023-05-05 13:42] LABS: INTERNATIONAL NORM RATIO 1.2 (0.9-1.1); Prothrombin Time 14.8 SEC (11.1-13.3)
[2023-05-05 13:51] LABS: Anion Gap 11 (12-20); Blood Urea Nitrogen 11 mg/dL (9-16); Calcium 9.6 mg/dL (8.4-10.2); Carbon Dioxide 30 mmol/L (22-29); Chloride 105 mmol/L (96-108); Estimated Glomerular Filt Rate > 60; Glucose Random 93 mg/dL (60-115); Potassium 4.8 mmol/L (3.3-5.1); Sodium 141 mmol/L (135-145)
== END 2023-05-05 10:31 | disposition home or self-care (01) ==
LOC: HO.HMGCLDS 10:30
PROVIDERS: Visit Provider Internal Medicine Cardiovascular Disease
DX: I48.91 Unspecified atrial fibrillation (principal)
CPT/HCPCS: 36415; 80048; 85025; 85610

== ENCOUNTER 2023-07-18 21:14 | Emergency (ER) | payer MEDICARE, SELFPAY ==
[2023-07-18 21:17] VITALS: BP 167/92; PULSE 71; RESP 18; TEMP 36.8; O2SAT 95; BMI 31.2
[2023-07-18 21:41] VITALS: BP 144/84; PULSE 64; RESP 17; TEMP 36.5; O2SAT 96
--- NOTE | 2023-07-18 21:47 | ED.GENADULT ---
HPI - General Adult General Chief complaint: Allergic Reaction Stated complaint: Allergic reaction Time Seen by Provider: 07/18/23 21:47 Source: patient Mode of arrival: ambulatory Limitations: no limitations History of Present Illness HPI narrative: Patient is a 67 year old assigned male at with a history of atrial fib and HTN presenting to the emergency department today with bilateral eye irritation and possible allergic reaction. Patient states that yesterday he was seen for sinus congestion and was told that his eyes were infected, so he was prescribed an antibiotic eye drop. Patient states that he used the antibiotic eye drops twice and now his eyes are very red, irritated, and uncomfortable. Patient denies any dizziness, lightheadedness, abdominal pain, nausea, vomiting, fever, chills, blurry vision, double vision, loss of vision, chest pain, difficulty breathing, shortness of breath, back pain, night sweats, pain with urination, increased urinary frequency, increased urinary urgency, blood in his urine or stool, syncope or a near syncopal episode, recent trauma or falls, bowel incontinence, bladder incontinence, bowel retention, bladder retention, or any other complaints at this time. Onset (ago): day(s) Location: eyes Severity: mild Relieving factors: none Exacerbating factors: none Associated symptoms: denies other symptoms Treatments prior to arrival: none Related Data Home Medications Medication Instructions Recorded Confirmed cyclosporine 0.05 % eye drops in a 1 drp ophthalmic (eye) Q12H 11/14/20 03/11/23 dropperette (Restasis) tadalafil 5 mg tablet 5 mg PO DAILY PRN urinary urgency 02/19/21 03/11/23 cholecalciferol (vitamin D3) 25 25 mcg PO DAILY 11/27/22 03/11/23 mcg (1,000 unit) capsule (Vitamin D3) multivitamin 1 tab PO DAILY 11/27/22 03/11/23 Fish Oil PO DAILY 03/11/23 metoprolol succinate 100 mg 50 mg PO DAILY 03/11/23 03/18/23 tablet,extended release 24 hr Previous Rx's Medication Instructions Recorded sucralfate 1 gram tablet 1 g PO BID #60 tabs 10/14/22 amlodipine 5 mg tablet 5 mg PO DAILY@1800 #90 tabs 12/25/22 lisinopril 20 mg tablet 20 mg PO BID #180 tabs 12/25/22 pantoprazole 40 mg tablet,delayed 40 mg PO BID #60 tabs 01/08/23 release apixaban 5 mg tablet (Eliquis) 5 mg PO BID 90 days #180 tabs 02/17/23 amiodarone 200 mg tablet 200 mg PO DAILY #90 tabs 06/18/23 doxycycline hyclate 100 mg tablet 100 mg PO BID 7 days #14 tabs 07/18/23 Allergies Allergy/AdvReac Type Severity Reaction Status Date / Time codeine [CODEINE] Allergy Intermediate loopy Verified 04/16/23 09:58 feeling hydrocodone Allergy Intermediate Vomiting Verified 04/16/23 09:58 pseudoephedrine Allergy Intermediate HEART Verified 04/16/23 09:58 [PSEUDOEPHEDRINE] PALPITATIONS Penicillins [PENICILLINS] AdvReac Intermediate C-DIFF Verified 04/16/23 09:58 diarrhea BANDAIDS Allergy Intermediate RASH Uncoded 04/16/23 09:58 Review of Systems Constitutional: Constitutional: Reports no additional constitutional complaints, Denies chills, Denies fever(s) and Denies night sweats Eyes: Eyes: Reports no additional eye complaints, Denies blurry vision, Denies change in vision, Denies diplopia, Denies eye discharge, Reports irritation, Denies loss of vision and Reports eye pain ENT: Denies dizziness Cardiovascular: Cardiovascular: Reports no additional cardiovascular complaints, Denies chest pain, Denies lightheadedness, Denies Loss of Consciousness and Denies dyspnea Respiratory: Respiratory: Reports no additional respiratory complaints and Denies dyspnea Gastrointestinal: Gastrointestinal: Reports no additional gastrointestinal complaints, Denies abdominal pain, Denies melena, Denies hematochezia, Denies change in bowel habits and Denies change in stool character Genitourinary: Genitourinary: Reports no additional male genitourinary complaints, Denies hematuria, Denies oliguria, Denies difficulty urinating, Denies dysuria, Denies urinary frequency, Denies urinary hesitancy, Denies urinary incontinence and Denies urinary urgency Musculoskeletal: Musculoskeletal: Reports no additional musculoskeletal complaints, Denies numbness and Denies tingling Neurologic: Denies dizziness, Denies loss of vision, Denies numbness and Denies tingling Psychiatric: Psychiatric: Reports no additional psychiatric complaints Endocrine: Endocrine: Reports no additional endocrine complaints Hematologic/Lymphatic: Hematologic/Lymphatic: Reports no additional hematologic/lymphatic complaints Allergic/Immunologic: Allergic/Immunologic: Reports no additional allergic/immunologic complaints PMFSH Past Medical History Attestation statement: The following information was validated with the patient. Source: old records reviewed and nursing notes reviewed Medical History (Reviewed 07/19/23 @ 01:12 EDT by LIZ Gonzalez) Persistent atrial fibrillation Oral bleeding Cellulitis of face HTN (hypertension) Afib History of cardioversion History of COVID-19 History of ETOH abuse Hepatic steatosis Schatzki's ring Gastropathy GERD (gastroesophageal reflux disease) Arthritis Cirrhosis Diarrhea Surgical History (Reviewed 07/19/23 @ 01:12 EDT by LIZ Gonzalez) Hx of cholecystectomy Hx of eye surgery History of esophagogastroduodenoscopy (EGD) Hx of colonoscopy History of back surgery Family History Family History (Reviewed 07/19/23 @ 01:12 EDT by LIZ Gonzalez) Father Lung cancer Mother Thyroid condition HTN (hypertension) Lung cancer CVD (cardiovascular disease) Sister Breast cancer Son Pulmonary embolism Blood clot in vein Social History Social History (Reviewed 07/19/23 @ 01:12 EDT by LIZ Gonzalez) Household Members: Spouse Household Members Other:: adult children and grandchildren. Housing: House Do you presently have visiting nurse or other home services: No Alcohol intake: never Patient Tobacco Use Status: Never used Tobacco Smoked in Last 30 Days: No e-Cigarette/Vaping Use: Never Used Second Hand Smoke Exposure: No Advance Directives: No Advance Directives Information Provided: No service: No Current occupational status: retired Cognitive needs: No Hearing needs: No Vision needs: No Physical Exam ED Vital Signs: Vital Signs - 24 hr 07/18/23 21:17 07/18/23 21:41 Temperature 98.2 F 97.7 F Pulse Rate 71 64 Respiratory Rate 18 17 Blood Pressure 167/92 H 144/84 H Pulse Oximetry 95 96 Oxygen Delivery Method Room Air Room Air BMI result Body Mass Index 31.2 Const General: cooperative, no acute distress, alert and awake Nutritional Appearance: well nourished Orientation/consciousness: patient oriented x3 Limitations: no limitations HENMT Head: Yes normal to inspection and Yes atraumatic Ears: hearing grossly normal bilaterally and external ears normal General nose exam: Normal external nose present, no nasal discharge noted and no epistaxis Face and sinus: Yes normal facial exam, No abrasion and No laceration Mouth: Normal oral and palatal mucosa present, no drooling and no muffled voice Eyes Other: bilateral eye irritation Periorbital: periorbital findings normal Eyelids: Yes eyelids normal Pupils: Equal, round and reactive pupils present EOM: EOMs intact bilaterally Neck Neck: Yes normal visual inspection, Yes full ROM and Yes no lymphadenopathy Chest Chest palpation & inspection: normal inspection of the chest Resp Effort & Inspection: normal respiratory effort and able to speak in complete sentences GI Inspection: Yes normal to inspection Neuro General: patient oriented x3 and moves all extremities Cranial nerves: Yes Equal, round and reactive pupils present Cognition (Neuro): normal cognition Motor exam (neuro): 5/5 motor strength present throughout Sensory Exam: Normal double simultaneous stimulation for sensation Coordination: [id number] test normal Extrem General: Yes normal to inspection, Yes full ROM and Yes capillary refill normal Psych Appearance: grossly normal Mental Status: mental status grossly normal Affect: normal affect Attitude: cooperative Thought process: Normal thought process present Thought content: Normal thought content present Insight: Good insight present (Psych) Medications Administered Discontinued Medications Generic Name Dose Route Start Last Admin Trade Name Freq PRN Reason Stop Dose Admin Doxycycline Monohydrate 100 mg 07/18/23 22:19 07/18/23 22:24 Doxycycline Monohydrate 100 Mg Capsule PO 07/18/23 22:20 100 mg ONCE ONE Administration Medical Decision Making Medical Decision Making [facility] Narrative: Patient is a 67 year old assigned male at with a history of atrial fib and HTN presenting to the emergency department today with bilateral eye irritation after starting antibiotic drops. Patient's physical exam was as noted in the physical exam portion of this note. Patient's clinical presentation is most consistent with sinusitis and a localized allergic reaction to antibiotic eye drops. I explained my physical exam findings as well as all test results to the patient. I answered all questions asked by the patient. I stressed the importance of the patient taking his medication as prescribed. I stressed the importance of the patient following up with his primary care provider and an applied behavior specialist. I stressed the importance of the patient returning to the emergency department immediately if his symptoms were to worsen or if he were to develop any dizziness, shortness of breath, difficulty breathing, chest pain, blurry vision, loss of vision, nausea, vomiting, abdominal pain, fever, chills, back pain, or any other complaints. Patient verbalized agreement and understanding with this treatment plan and discharge. Differential Diagnosis Differential Diagnoses: The differential diagnosis associated with the presentation includes Local allergic reaction Medication allergic reaction Sinusitis Discharge Plan Discharge Clinical Impression: Allergic reaction, Sinusitis Patient Disposition: Home, Self-Care Instructions: Sinusitis (ED), General Allergic Reaction (ED) Additional Instructions: Follow up with your primary care provider and your applied behavior specialist. IF your applied behavior specialist cannot get you in [place], call to establish and follow up with ours. Return to the emergency department immediately if your symptoms worsen or if you develop any dizziness, shortness of breath, difficulty breathing, chest pain, blurry vision, loss of vision, nausea, vomiting, abdominal pain, fever, chills, back pain, or any other complaints. Prescriptions: New doxycycline hyclate 100 mg tablet 100 mg PO BID 7 Days Qty: 14 0RF No Action sucralfate 1 gram tablet 1 g PO BID Qty: 60 0RF amlodipine 5 mg tablet 5 mg PO DAILY@1800 Qty: 90 3RF lisinopril 20 mg tablet 20 mg PO BID Qty: 180 3RF pantoprazole 40 mg tablet,delayed release (DR/EC) 40 mg PO BID Qty: 60 3RF Eliquis 5 mg tablet 5 mg PO BID 90 Days Qty: 180 3RF amiodarone 200 mg tablet 200 mg PO DAILY Qty: 90 3RF multivitamin Tablet 1 tab PO DAILY cholecalciferol (vitamin D3) [Vitamin D3] 25 mcg (1,000 unit) Capsule 25 mcg PO DAILY metoprolol succinate 100 mg tablet extended release 24 hr 50 mg PO DAILY Fish Oil PO DAILY Restasis 0.05 % dropperette 1 drp ophthalmic (eye) Q12H tadalafil 5 mg tablet 5 mg PO DAILY PRN (Reason: urinary urgency) Referrals: Steven Biswas [Physician] - (Call to establish and follow up with an applied behavior specialist if yours cannot get you in [place]. ) Kate Mello MD [Primary Care Provider] - Interventions: ED Discharge Assessment Last Done: 07/18/23 22:28 Discharge Date/Time: 07/18/23 22:29 Print Language: Danish
[2023-07-18] MEDS: Doxycycline Monohydrate 100 MG CAPSULE PO (22:24)
== END 2023-07-18 22:29 | disposition home or self-care (01) ==
PROVIDERS: Emergency Provider Emergency Medicine; PCP Internal Medicine
DX: H57.13 Ocular pain, bilateral (principal); T49.5X5A Adverse effect of ophthalmological drugs and preparations, initial encounter; Y92.9 Unspecified place or not applicable; J32.9 Chronic sinusitis, unspecified; I10 Essential (primary) hypertension; I48.0 Paroxysmal atrial fibrillation; Z79.899 Other long term (current) drug therapy; Z79.01 Long term (current) use of anticoagulants
CPT/HCPCS: 99283; 99284

== ENCOUNTER 2023-08-25 09:00 | Outpatient (REF) | payer MEDICARE, SELFPAY ==
[2023-08-25 12:03] LABS: Prostate Specific Antigen 0.41 ng/mL (<0.05-4.0)
== END 2023-08-25 09:01 | disposition home or self-care (01) ==
LOC: HO.HMGCLR 09:00
PROVIDERS: PCP Internal Medicine; Visit Provider Urology
DX: Z12.5 Encounter for screening for malignant neoplasm of prostate (principal); N40.1 Benign prostatic hyperplasia with lower urinary tract symptoms
CPT/HCPCS: 36415; 84153

== ENCOUNTER 2023-11-03 09:26 | Outpatient (AMB) | payer MEDICARE, SELFPAY ==
--- NOTE | 2023-11-03 09:41 | MHC.OFFVIS ---
Intake Vital Signs 11/03/23 09:42 Height 6 ft Weight 249 lb 1.957 oz BMI 33.8 BP 148/68 H Blood Pressure Location Rt brachial Position Sitting Pulse 65 Intake Visit Reasons: follow up Intake Note: Patient presents to in office in follow up for colonoscopy screening. CC: Patient reports feeling about the same having abdominal pain and bloating and occasional diarrhea. 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 by: Self / Same As Patient Allergies codeine [CODEINE] Allergy (Intermediate, Verified 11/03/23 09:50) loopy feeling hydrocodone Allergy (Intermediate, Verified 11/03/23 09:50) Vomiting pseudoephedrine [PSEUDOEPHEDRINE] Allergy (Intermediate, Verified 11/03/23 09:50) HEART PALPITATIONS Penicillins [PENICILLINS] Adverse Reaction (Intermediate, Verified 11/03/23 09:50) C-DIFF diarrhea BANDAIDS Allergy (Intermediate, Uncoded 04/16/23 09:58) RASH HPI follow up HPI Details Assessment & Plan (1) GERD (gastroesophageal reflux disease): ?Code(s): K21.9 - Gastro-esophageal reflux disease without esophagitis ?Plan: He also needs an EGD for dysphagia per Dr. Kan, food sticks he says that food will occasionally stick just under the collarbone.? This only happens with solid food he does fine with liquids.. He has Carafate for his diarrhea but does not take it consistently he likes taking it just as needed.? Too bad because he may have an element of bile reflux contributing to his continued dysphagia. He is due for HUYNH monitoring, his renal provider requests a complete US to include both kidneys.? WE REVIEW HIS MOST RECENT labs and ultrasound from November and appears that his fatty liver disease is stable at this time. He wants Dr. Kan for his procedure. He will go for HUYNH labs as well. ROV after procedures . (2) Tubulovillous adenoma of colon: ?Comment: 2019 SCOPE COLON The procedure should be repeated in 1 year due to a tubulovillous adenoma and a tubular adenoma. 11/2020 7 polyps with repeat in 2 years. ?Code(s): D12.6 - Benign neoplasm of colon, unspecified (3) Bile salt-induced diarrhea: ?Code(s): K90.89 - Other intestinal malabsorption (4) Hepatic steatosis: ?Comment: K70.30, Ultrasound elastography shows F3-F4 fibrosis 2019., 07/2019 ABIMBOLA and mitochondrial antibodies are negative smooth muscle antibodies are mildly elevated at 28, FERRITIN IS NORMAL AT 136, ALPHA FETOPROTEIN marker is 1.8, GGT is normal at 22. He had a history of heavy alcohol abuse earlier in life but has not had alcohol for the past 5 years 12/02/21 WBC 7.4 Hgb 16.5 Hct 50.2 Plt Count 255 Estimated GFR > 60 Total Bilirubin 0.8 Direct Bilirubin 0.3 AST 16 ALT 14 Alkaline Phosphatase 66 US ABD 11/26/21 IMPRESSION: Echogenic liver probably representing fatty infiltration. Limited visualization of the pancreas. ?Code(s): K76.0 - Fatty (change of) liver, not elsewhere classified (5) Nephrolithiasis: ?Code(s): N20.0 - Calculus of kidney ? ? ? Orders: Orders US abdomen complet e Today K76.0 - Fatty (rick nge of) liver, not elsewhere classif ied, N20.0 - Calcu misti of kidney ? Liver Panel Today K76.0 - Fatty (rick nge of) liver, not elsewhere classif ied ? Alpha Fetoprotein Today K76.0 - Fatty (rick nge of) liver, not elsewhere classif ied ? Medications: New peg 3350-electroly irina 236-22.74-6.74 -5.86 gram (Golyt camilla) ?? until feca l effluent is mervin r; do not exceed a total volume of 2 ,000 mL 240 mL? PO Q10M 1 day 4,000 mL 0RF Z12.11 - Encounter for screening for malignant neoplas m of colon Labs: NOT OBTAIN ULTRASOUND OF THE ABDOMEN 08/05/22? FINDINGS: PANCREAS: Not well visualized due to bowel gas. ABDOMINAL AORTA: The distal abdominal aorta is normal in caliber. Proximal and mid abdominal aorta are not well visualized due to bowel gas. INFERIOR VENA CAVA: Not well visualized. LIVER: The liver is normal in size. The liver contour is normal. Liver echotexture is increased. No focal hepatic lesion. There is no intrahepatic biliary duct dilatation seen. GALLBLADDER: Surgically absent. COMMON BILE DUCT: Normal in caliber measuring 0.7 cm in diameter. RIGHT KIDNEY: Normal. No hydronephrosis. No renal calculi or focal parenchymal lesions. The kidney measures 13.4 cm in maximum dimension. LEFT KIDNEY: Normal. No hydronephrosis. No renal calculi or focal parenchymal lesions. The kidney measures 13.1 cm in maximum dimension. SPLEEN: Normal. The spleen measures 11.1 cm in maximum dimension. FREE FLUID: None. US/US abdomen complete IMPRESSION: Limited exam. Echogenic liver probably representing fatty infiltration. COLONOSCOPY/EGD Not yet obtained BIOPSY TODAY'S VISIT He has been lost to follow up r/t his sudden onset AFIB and difficulties getting it controlled, s/p ablation and cardioversion, new anticoagulate etd. (but he has been on now for about 6 mos) now seeing EP cardiology in [place] and will need clearance from them. The afib was discovered when he went in for the colonoscopy. He is not having diarrhea so much any more, changed his diet to eat more healthfully. Off sucralfate, continues pantoprazole bid. Needs US and update labs for HUYNH - agreeable. He denies any respiratory problems and he continues to follow with Cardiology for his AFib and we will need clearance prior to the procedure. There are no prior problems with anesthesia or sedation. There are no infectious disease problems. Again he had multiple polyps on his last colonoscopy with a history of a TVA so he is at high risk for colon cancer. We will get a liver panel and an alpha fetoprotein for his HUYNH monitoring but will get a repeat ultrasound to catch him up. ROV 3 mos. [facility] Medical History (Reviewed 07/19/23 @ 01:12 EDT by LIZ Gonzalez) Persistent atrial fibrillation Oral bleeding Cellulitis of face HTN (hypertension) Afib History of cardioversion History of COVID-19 History of ETOH abuse Hepatic steatosis Schatzki's ring Gastropathy GERD (gastroesophageal reflux disease) Arthritis Cirrhosis Diarrhea Surgical History (Reviewed 07/19/23 @ 01:12 EDT by LIZ Gonzalez) Hx of cholecystectomy Hx of eye surgery History of esophagogastroduodenoscopy (EGD) Hx of colonoscopy History of back surgery Family History (Reviewed 07/19/23 @ 01:12 EDT by LIZ Gonzalez) Father Lung cancer Mother Thyroid condition HTN (hypertension) Lung cancer CVD (cardiovascular disease) Sister Breast cancer Son Pulmonary embolism Blood clot in vein Social History (Reviewed 07/19/23 @ 01:12 EDT by LIZ Gonzalez) Household Members: Spouse Household Members Other:: adult children and grandchildren. Housing: House Do you presently have visiting nurse or other home services: No Alcohol intake: never Patient Tobacco Use Status: Never used Tobacco e-Cigarette/Vaping Use: Never Used Second Hand Smoke Exposure: No service: No Current occupational status: retired Cognitive needs: No Hearing needs: No Vision needs: No Review of Systems Const Denies fatigue, Denies fever(s), Denies night sweats, Denies poor appetite, Reports weight gain and Denies weight loss Eyes Details: glasses Reports requires corrective lenses ENT Reports Normal hearing present, Denies dental pain, Denies dysphagia, Denies hearing loss, Denies mouth pain, Denies odynophagia, Denies throat swelling, Denies tongue swelling and Reports other (Dentition adequate) Card Reports palpitations Resp Reports no additional complaints GI Details: Denies abdominal pain, Denies melena, Denies bloating, Denies hematochezia, Denies constipation, Denies GI cramping, Denies dysphagia, Denies excessive flatus, Denies early satiety, Reports heartburn, Denies diarrhea, Denies nausea, Denies odynophagia, Denies vomiting and Denies hematemesis Skin/Breast Denies pruritus, Denies lesions, Denies rash and Denies jaundice Neuro Reports Normal hearing present and Denies Abnormal speech present Endo Denies fatigue and Reports palpitations Aller/Immun Denies throat swelling and Denies tongue swelling Physical Exam Vital Signs: Last Vital Signs Pulse 65 11/03/23 09:42 BP 148/68 H 11/03/23 09:42 BMI result Body Mass Index 33.8 Const General: cooperative, no acute distress, well developed and well groomed Nutritional Appearance: well nourished and obese Orientation/consciousness: oriented to person, oriented to place and oriented to time Limitations: No language barrier HEENT Head: Yes normocephalic and Yes atraumatic Eyes General: appearance normal, both eyes and all related structures Pupils: Equal, round and reactive pupils present Neck Neck: Yes normal visual inspection and Yes no lymphadenopathy Thyroid: Thyroid normal Resp Effort & Inspection: normal respiratory effort and able to speak in complete sentences Auscultation: clear to auscultation bilaterally Cardio Rate: regular rate Rhythm: regular rhythm Heart sounds: Normal, physiologic split S2 sound present Peripheral pulses: radial pulses present and posterior tibial pulses present GI Inspection: No distended, No Abdominal panniculus present and Yes obesity Palpation (GI): Soft to palpation, nontender, no guarding, not rigid and No hepatosplenomegaly present Percussion: Yes normal to percussion Auscultation: normal bowel sounds Rectal Exam - Male: Yes deferred Skin General skin exam: no rashes or lesions noted, turgor normal, skin not dry, no jaundice, No spider nevi and no striae Rashes: no rashes Nails: normal Neuro General: oriented to person, oriented to place and oriented to time Cranial nerves: Yes Equal, round and reactive pupils present and Yes Normal hearing present Speech: No Abnormal speech present Extrem General: Yes normal to inspection, No clubbing, No cyanosis and No edema Psych Appearance: grossly normal and well kempt Mental Status: mental status grossly normal Speech and movement: Normal speech and movement present Affect: normal affect Attitude: cooperative Thought process: Normal thought process present and not confabulating Thought content: Normal thought content present Insight: Fair insight present (Psych) Judgement: Fair judgement present (Psych) Assessment & Plan Assessment & Plan (1) Tubulovillous adenoma of colon: Comment: 2019 SCOPE COLON The procedure should be repeated in 1 year due to a tubulovillous adenoma and a tubular adenoma. 11/2020 7 polyps with repeat in 2 years. Code(s): D12.6 - Benign neoplasm of colon, unspecified (2) Dysphagia: Code(s): R13.10 - Dysphagia, unspecified (3) GERD (gastroesophageal reflux disease): Code(s): K21.9 - Gastro-esophageal reflux disease without esophagitis (4) Hepatic steatosis: Comment: K70.30, Ultrasound elastography shows F3-F4 fibrosis 2018., 07/2019 ABIMBOLA and mitochondrial antibodies are negative smooth muscle antibodies are mildly elevated at 28, FERRITIN IS NORMAL AT 136, ALPHA FETOPROTEIN marker is 1.8, GGT is normal at 22. He had a history of heavy alcohol abuse earlier in life but has not had alcohol for the past 5 years 12/02/21 WBC 7.4 Hgb 16.5 Hct 50.2 Plt Count 255 Estimated GFR > 60 Total Bilirubin 0.8 Direct Bilirubin 0.3 AST 16 ALT 14 Alkaline Phosphatase 66 US ABD 11/26/21 IMPRESSION: Echogenic liver probably representing fatty infiltration. Limited visualization of the pancreas. Code(s): K76.0 - Fatty (change of) liver, not elsewhere classified (5) Bile salt-induced diarrhea: Code(s): K90.89 - Other intestinal malabsorption (6) PAF (paroxysmal atrial fibrillation): Code(s): I48.0 - Paroxysmal atrial fibrillation (7) Pre-op examination: Code(s): Z01.818 - Encounter for other preprocedural examination Plan COLONOSCOPY/EGD Not yet obtained BIOPSY TODAY'S VISIT He has been lost to follow up r/t his sudden onset AFIB and difficulties getting it controlled, s/p ablation and cardioversion, new anticoagulate etd. (but he has been on now for about 6 mos) now seeing EP cardiology in [place] and will need clearance from them. The afib was discovered when he went in for the colonoscopy. He is not having diarrhea so much any more, changed his diet to eat more healthfully. Off sucralfate, continues pantoprazole bid. Needs US and update labs for HUYNH - agreeable. He denies any respiratory problems and he continues to follow with Cardiology for his AFib and we will need clearance prior to the procedure. There are no prior problems with anesthesia or sedation. There are no infectious disease problems. Again he had multiple polyps on his last colonoscopy with a history of a TVA so he is at high risk for colon cancer. We will get a liver panel and an alpha fetoprotein for his HUYNH monitoring but will get a repeat ultrasound to catch him up. ROV 3 mos. Orders: Orders Liver Panel Today K76.0 - Fatty (change of) liver, not elsewhere classified Alpha Fetoprotein Today K76.0 - Fatty (change of) liver, not elsewhere classified US abdomen complete Today K76.0 - Fatty (change of) liver, not elsewhere classified Colonoscopy - GI Use Only Today D12.6 - Benign neoplasm of colon, unspecified Medications: Refilled pantoprazole 40 mg PO BID 180 tabs 6RF K21.9 - Gastro-esophageal reflux disease without esophagitis, K31.9 - Disease of stomach and duodenum, unspecified Discontinued sucralfate Discontinued Reason: Doctor's Order 1 g PO BID 60 tabs 0RF Coding Level of Care Code Est Pt Level 4 (12431) Diagnoses Tubulovillous adenoma of colon D12.6 Dysphagia R13.10 GERD (gastroesophageal reflux disease) K21.9 Hepatic steatosis K76.0 Bile salt-induced diarrhea K90.89 PAF (paroxysmal atrial fibrillation) I48.0 Pre-op examination Z01.818
[2023-11-03 09:42] VITALS: BP 148/68; PULSE 65; BMI 33.8
== END 2023-11-03 10:18 | disposition home or self-care (01) ==
PROVIDERS: PCP Internal Medicine; Visit Provider Nurse Practitioner
DX: D12.6 Benign neoplasm of colon, unspecified (principal); R13.10 Dysphagia, unspecified; K21.9 Gastro-esophageal reflux disease without esophagitis; K76.0 Fatty (change of) liver, not elsewhere classified; K90.89 Other intestinal malabsorption; I48.0 Paroxysmal atrial fibrillation; Z01.818 Encounter for other preprocedural examination
CPT/HCPCS: 99214

== ENCOUNTER → 2023-11-03 09:26 | Outpatient (BNVA) | payer MEDICARE, SELFPAY | PROVIDERS: PCP Internal Medicine; Visit Provider Nurse Practitioner | DX: Z01.818 Encounter for other preprocedural examination (principal); D12.6 Benign neoplasm of colon, unspecified; K21.9 Gastro-esophageal reflux disease without esophagitis; K76.0 Fatty (change of) liver, not elsewhere classified; K90.89 Other intestinal malabsorption; R13.10 Dysphagia, unspecified; I48.0 Paroxysmal atrial fibrillation | CPT/HCPCS: 99212 ==

== ENCOUNTER 2023-12-21 08:51 | Outpatient (REF) | payer MEDICARE, SELFPAY ==
--- NOTE | ~2023-12-21 | US_ITS ---
EXAMINATION: US ABDOMEN COMPLETE CLINICAL INFORMATION: Fatty (change of) liver, not elsewhere classified. COMPARISON: Ultrasound abdomen complete 08/04/2022. Ultrasound abdomen limited 11/26/2021. TECHNIQUE: Real-time imaging of the abdominal viscera. Technically limited study secondary to bowel gas and body habitus. FINDINGS: PANCREAS: Limited visualization of pancreatic tail and head. Imaged portion of pancreatic body is unremarkable. ABDOMINAL AORTA: Limited visualization. INFERIOR VENA CAVA: Visualized portions are normal. LIVER: Increased hepatic parenchymal heterogeneity and echogenicity could be associated with hepatocellular disease/hepatic steatosis and severely limits visualization. Correlation with liver function tests and clinical exam recommended to determine further management. GALLBLADDER: Surgically absent. COMMON BILE DUCT: Normal in caliber measuring 0.49 cm in diameter. RIGHT KIDNEY: No hydronephrosis. No renal calculi. Limited visualization. The kidney measures 15.0 cm in maximum dimension. LEFT KIDNEY: No hydronephrosis. No renal calculi. Limited visualization. The kidney measures 13.5 cm in maximum dimension. SPLEEN: Normal. The spleen measures 11.2 cm in maximum dimension. FREE FLUID: None. US/US abdomen complete IMPRESSION: 1. Increased hepatic parenchymal heterogeneity and echogenicity could be associated with hepatocellular disease/hepatic steatosis and severely limits visualization. Correlation with liver function tests and clinical exam recommended to determine further management. 2. Gallbladder surgically absent.
[2023-12-21 11:35] LABS: Alanine Aminotransferase 26 U/L (0-40); Albumin Level 4.1 g/dL (3.5-5.0); Alkaline Phosphatase 61 U/L (39-117); Aspartate Amino Transferase 19 U/L (5-37); Bilirubin Direct 0.3 mg/dL (0.0-0.5); Bilirubin Total 0.6 mg/dL (0.0-1.0); Total Protein 7.4 g/dL (6.5-8.0)
[2023-12-24 20:53] LABS: Alpha Fetoprotein 1.3 ng/mL (<6.1)
== END 2023-12-21 08:52 | disposition home or self-care (01) ==
LOC: HO.HMGCX 08:51
PROVIDERS: PCP Internal Medicine; Visit Provider Nurse Practitioner
DX: K76.0 Fatty (change of) liver, not elsewhere classified (principal)
CPT/HCPCS: 36415; 76700; 80076; 82105

== ENCOUNTER 2024-01-26 08:42 | Outpatient (AMB) | payer MEDICARE, SELFPAY ==
[2024-01-26 08:49] VITALS: BP 127/58; PULSE 61; BMI 30.8
--- NOTE | 2024-01-26 08:49 | MHC.OFFVIS ---
Vital Signs 01/26/24 08:49 Height 6 ft Weight 227 lb 1.218 oz BMI 30.8 BP 127/58 L Blood Pressure Location Rt brachial Position Sitting Pulse 61 Intake Visit Reasons: 3 month follow up Intake Note: Patient presents to in office in follow up of labs and US. CC: Patient states that he has changed his diet and has been doing better. Substance Addiction Coordinator Required: No Accompanied by: Self / Same As Patient Allergies codeine [CODEINE] Allergy (Intermediate, Verified 02/04/24 06:52) loopy feeling hydrocodone Allergy (Intermediate, Verified 02/04/24 06:52) Vomiting pseudoephedrine [PSEUDOEPHEDRINE] Allergy (Intermediate, Verified 02/04/24 06:52) HEART PALPITATIONS Penicillins [PENICILLINS] Adverse Reaction (Intermediate, Verified 02/04/24 06:52) C-DIFF diarrhea BANDAIDS Allergy (Intermediate, Uncoded 02/04/24 06:52) RASH HPI HPI 3 month follow up: Details: Assessment & Plan (1) Tubulovillous adenoma of colon: Comment: 2019 SCOPE COLON The procedure should be repeated in 1 year due to a tubulovillous adenoma and a tubular adenoma. 11/2020 7 polyps with repeat in 2 years. Code(s): D12.6 - Benign neoplasm of colon, unspecified (2) Dysphagia: Code(s): R13.10 - Dysphagia, unspecified (3) GERD (gastroesophageal reflux disease): Code(s): K21.9 - Gastro-esophageal reflux disease without esophagitis (4) Hepatic steatosis: Comment: K70.30, Ultrasound elastography shows F3-F4 fibrosis 2019., 07/2019 ABIMBOLA and mitochondrial antibodies are negative smooth muscle antibodies are mildly elevated at 28, FERRITIN IS NORMAL AT 136, ALPHA FETOPROTEIN marker is 1.8, GGT is normal at 22. He had a history of heavy alcohol abuse earlier in life but has not had alcohol for the past 5 years 12/02/21 WBC 7.4 Hgb 16.5 Hct 50.2 Plt Count 255 Estimated GFR > 60 Total Bilirubin 0.8 Direct Bilirubin 0.3 AST 16 ALT 14 Alkaline Phosphatase 66 US ABD 11/26/21 IMPRESSION: Echogenic liver probably representing fatty infiltration. Limited visualization of the pancreas. Code(s): K76.0 - Fatty (change of) liver, not elsewhere classified (5) Bile salt-induced diarrhea: Code(s): K90.89 - Other intestinal malabsorption (6) PAF (paroxysmal atrial fibrillation): Code(s): I48.0 - Paroxysmal atrial fibrillation (7) Pre-op examination: Code(s): Z01.818 - Encounter for other preprocedural examination Plan He has been lost to follow up r/t his sudden onset AFIB and difficulties getting it controlled, s/p ablation and cardioversion, new anticoagulate etd. (but he has been on now for about 6 mos) now seeing [facility] cardiology in [place] and will need clearance from them. The afib was discovered when he went in for the colonoscopy. He is not having diarrhea so much any more, changed his diet to eat more healthfully. Off sucralfate, continues pantoprazole bid. Needs US and update labs for HUYNH - agreeable. He denies any respiratory problems and he continues to follow with Cardiology for his AFib and we will need clearance prior to the procedure. There are no prior problems with anesthesia or sedation. There are no infectious disease problems. Again he had multiple polyps on his last colonoscopy with a history of a TVA so he is at high risk for colon cancer. We will get a liver panel and an alpha fetoprotein for his HUYNH monitoring but will get a repeat ultrasound to catch him up. ROV 3 mos. Orders: Orders Liver Panel Today K76.0 - Fatty (change of) liver, not elsewhere classified Alpha Fetoprotein Today K76.0 - Fatty (change of) liver, not elsewhere classified US abdomen complete Today K76.0 - Fatty (change of) liver, not elsewhere classified Colonoscopy - GI Use Only Today D12.6 - Benign neoplasm of colon, unspecified Medications: Refilled pantoprazole 40 mg PO BID 180 tabs 6RF K21.9 - Gastro-esophageal reflux disease without esophagitis, K31.9 - Disease of stomach and duodenum, unspecified Discontinued sucralfate Discontinued Reason: Doctor's Order 1 g PO BID 60 tabs 0RF Laboratory Tests 12/21/23 09:39 Total Bilirubin 0.6 Direct Bilirubin 0.3 AST 19 ALT 26 Alkaline Phosphatase 61 Alpha Fetoprotein 1.3 US ABD 12/23/23 FINDINGS: PANCREAS: Limited visualization of pancreatic tail and head. Imaged portion of pancreatic body is unremarkable. ABDOMINAL AORTA: Limited visualization. INFERIOR VENA CAVA: Visualized portions are normal. LIVER: Increased hepatic parenchymal heterogeneity and echogenicity could be associated with hepatocellular disease/hepatic steatosis and severely limits visualization. Correlation with liver function tests and clinical exam recommended to determine further management. GALLBLADDER: Surgically absent. COMMON BILE DUCT: Normal in caliber measuring 0.49 cm in diameter. RIGHT KIDNEY: No hydronephrosis. No renal calculi. Limited visualization. The kidney measures 15.0 cm in maximum dimension. LEFT KIDNEY: No hydronephrosis. No renal calculi. Limited visualization. The kidney measures 13.5 cm in maximum dimension. SPLEEN: Normal. The spleen measures 11.2 cm in maximum dimension. FREE FLUID: None. US/US abdomen complete IMPRESSION: 1. Increased hepatic parenchymal heterogeneity and echogenicity could be associated with hepatocellular disease/hepatic steatosis and severely limits visualization. Correlation with liver function tests and clinical exam recommended to determine further management. 2. Gallbladder surgically absent. COLONOSCOPY/EGD Not yet obtained BIOPSY TODAY'S VISIT He continue to do well. He He is having dysphasia of solids getting stuck at the sternal notch, at times lower. His voice is raspy as well, but he is only taking the protonix prn....EDUCATED TO TAKE IT EVERY DAY TWICE A DAY. He is dieting and losing weight and his LFT's are improving. Has EGD coming up. HIs zak/brandy [facility] Medical History HTN (hypertension) Afib History of cardioversion Persistent atrial fibrillation Oral bleeding History of COVID-19 Cellulitis of face History of ETOH abuse Hepatic steatosis Schatzki's ring Gastropathy GERD (gastroesophageal reflux disease) Arthritis Cirrhosis Diarrhea Surgical History Hx of cholecystectomy Hx of eye surgery History of esophagogastroduodenoscopy (EGD) Hx of colonoscopy History of back surgery Family History Father Lung cancer Mother Thyroid condition HTN (hypertension) Lung cancer CVD (cardiovascular disease) Sister Breast cancer Son Pulmonary embolism Blood clot in vein Social History Household Members: Spouse Household Members Other:: adult children and grandchildren. Housing: House Do you presently have visiting nurse or other home services: No Alcohol intake: never Patient Tobacco Use Status: Never used Tobacco e-Cigarette/Vaping Use: Never Used Second Hand Smoke Exposure: No service: No Current occupational status: retired Cognitive needs: No Hearing needs: No Vision needs: No Review of Systems Const Denies fatigue, Denies fever(s), Denies night sweats, Denies poor appetite and Denies weight loss ENT Reports Normal hearing present, Denies dental pain, Reports dysphagia, Denies hearing loss, Denies mouth pain, Denies odynophagia, Denies throat swelling, Denies tongue swelling and Reports other (Dentition adequate) Card Reports no additional complaints Resp Reports no additional complaints GI Details: Denies abdominal pain, Denies melena, Denies bloating, Denies hematochezia, Denies constipation, Denies GI cramping, Reports dysphagia, Denies excessive flatus, Denies early satiety, Reports heartburn, Denies diarrhea, Denies nausea, Denies odynophagia, Denies vomiting and Denies hematemesis Skin/Breast Denies pruritus, Denies lesions, Denies rash and Denies jaundice Neuro Reports Normal hearing present and Denies Abnormal speech present Endo Denies fatigue Aller/Immun Denies throat swelling and Denies tongue swelling Physical Exam Vital Signs: Last Vital Signs Pulse 61 01/26/24 08:49 BP 127/58 L 01/26/24 08:49 BMI result Body Mass Index 30.8 Const General: cooperative, no acute distress, well developed and well groomed Nutritional Appearance: well nourished and obese Orientation/consciousness: oriented to person, oriented to place and oriented to time Limitations: No language barrier HEENT Head: Yes normocephalic and Yes atraumatic Eyes General: appearance normal, both eyes and all related structures Pupils: Equal, round and reactive pupils present Neck Neck: Yes normal visual inspection and Yes no lymphadenopathy Thyroid: Thyroid normal Resp Effort & Inspection: normal respiratory effort and able to speak in complete sentences Auscultation: clear to auscultation bilaterally Cardio Rate: regular rate Rhythm: regular rhythm Heart sounds: Normal, physiologic split S2 sound present Peripheral pulses: radial pulses present and posterior tibial pulses present GI Inspection: No distended, No Abdominal panniculus present and Yes obesity Palpation (GI): Soft to palpation, nontender, no guarding, not rigid and No hepatosplenomegaly present Percussion: Yes normal to percussion Auscultation: normal bowel sounds Rectal Exam - Male: Yes deferred Skin General skin exam: no rashes or lesions noted, turgor normal, skin not dry, no jaundice, No spider nevi and no striae Rashes: no rashes Nails: normal Neuro General: oriented to person, oriented to place and oriented to time Cranial nerves: Yes Equal, round and reactive pupils present and Yes Normal hearing present Speech: No Abnormal speech present Extrem General: Yes normal to inspection, No clubbing, No cyanosis and No edema Psych Appearance: grossly normal and well kempt Mental Status: mental status grossly normal Speech and movement: Normal speech and movement present Affect: normal affect Attitude: cooperative Thought process: Normal thought process present and not confabulating Thought content: Normal thought content present Insight: Fair insight present (Psych) Judgement: Fair judgement present (Psych) Results Reviewed Results Reviewed: Laboratory Tests 12/21/23 09:39 Total Bilirubin 0.6 Direct Bilirubin 0.3 AST 19 ALT 26 Alkaline Phosphatase 61 Alpha Fetoprotein 1.3 US ABD 12/23/23 FINDINGS: PANCREAS: Limited visualization of pancreatic tail and head. Imaged portion of pancreatic body is unremarkable. ABDOMINAL AORTA: Limited visualization. INFERIOR VENA CAVA: Visualized portions are normal. LIVER: Increased hepatic parenchymal heterogeneity and echogenicity could be associated with hepatocellular disease/hepatic steatosis and severely limits visualization. Correlation with liver function tests and clinical exam recommended to determine further management. GALLBLADDER: Surgically absent. COMMON BILE DUCT: Normal in caliber measuring 0.49 cm in diameter. RIGHT KIDNEY: No hydronephrosis. No renal calculi. Limited visualization. The kidney measures 15.0 cm in maximum dimension. LEFT KIDNEY: No hydronephrosis. No renal calculi. Limited visualization. The kidney measures 13.5 cm in maximum dimension. SPLEEN: Normal. The spleen measures 11.2 cm in maximum dimension. FREE FLUID: None. US/US abdomen complete IMPRESSION: 1. Increased hepatic parenchymal heterogeneity and echogenicity could be associated with hepatocellular disease/hepatic steatosis and severely limits visualization. Correlation with liver function tests and clinical exam recommended to determine further management. 2. Gallbladder surgically absent. Assessment & Plan Assessment & Plan (1) Dysphagia: Code(s): R13.10 - Dysphagia, unspecified Category: Medical (2) GERD (gastroesophageal reflux disease): Code(s): K21.9 - Gastro-esophageal reflux disease without esophagitis Category: Medical (3) Hepatic steatosis: Comment: K70.30, Ultrasound elastography shows F3-F4 fibrosis 2019., 07/2019 ABIMBOLA and mitochondrial antibodies are negative smooth muscle antibodies are mildly elevated at 28, FERRITIN IS NORMAL AT 136, ALPHA FETOPROTEIN marker is 1.8, GGT is normal at 22. He had a history of heavy alcohol abuse earlier in life but has not had alcohol for the past 5 years Current Laboratory Tests 12/21/23 09:39 Total Bilirubin 0.6 Direct Bilirubin 0.3 AST 19 ALT 26 Alkaline Phosphatase 61 Alpha Fetoprotein 1.3 US ABD 12/23/23 FINDINGS: PANCREAS: Limited visualization of pancreatic tail and head. Imaged portion of pancreatic body is unremarkable. ABDOMINAL AORTA: Limited visualization. INFERIOR VENA CAVA: Visualized portions are normal. LIVER: Increased hepatic parenchymal heterogeneity and echogenicity could be associated with hepatocellular disease/hepatic steatosis and severely limits visualization. Correlation with liver function tests and clinical exam recommended to determine further management. GALLBLADDER: Surgically absent. COMMON BILE DUCT: Normal in caliber measuring 0.49 cm in diameter. RIGHT KIDNEY: No hydronephrosis. No renal calculi. Limited visualization. The kidney measures 15.0 cm in maximum dimension. LEFT KIDNEY: No hydronephrosis. No renal calculi. Limited visualization. The kidney measures 13.5 cm in maximum dimension. SPLEEN: Normal. The spleen measures 11.2 cm in maximum dimension. FREE FLUID: None. US/US abdomen complete IMPRESSION: 1. Increased hepatic parenchymal heterogeneity and echogenicity could be associated with hepatocellular disease/hepatic steatosis and severely limits visualization. Correlation with liver function tests and clinical exam recommended to determine further management. 2. Gallbladder surgically absent. Code(s): K76.0 - Fatty (change of) liver, not elsewhere classified Category: Medical Plan He continue to do well. He He is having dysphasia of solids getting stuck at the sternal notch, at times lower. His voice is raspy as well, but he is only taking the protonix prn....EDUCATED TO TAKE IT EVERY DAY TWICE A DAY. He is dieting and losing weight and his LFT's are improving. Has EGD coming up. HIs zak/brandy He will keep his appointment after his endoscopy. COLONOSCOPY/EGD Not yet obtained BIOPSY Medications: Refilled pantoprazole 40 mg PO BID 180 tabs 6RF K21.9 - Gastro-esophageal reflux disease without esophagitis, K31.9 - Disease of stomach and duodenum, unspecified Coding Level of Care Code Est Pt Level 3 (98071) Diagnoses Dysphagia R13.10 GERD (gastroesophageal reflux disease) K21.9 Hepatic steatosis K76.0
== END 2024-01-26 09:42 | disposition home or self-care (01) ==
PROVIDERS: PCP Internal Medicine; Visit Provider Nurse Practitioner
DX: R13.10 Dysphagia, unspecified (principal); K21.9 Gastro-esophageal reflux disease without esophagitis; K76.0 Fatty (change of) liver, not elsewhere classified
CPT/HCPCS: 99213

== ENCOUNTER → 2024-01-26 08:42 | Outpatient (BNVA) | payer MEDICARE, SELFPAY | PROVIDERS: PCP Internal Medicine; Visit Provider Nurse Practitioner | DX: R13.10 Dysphagia, unspecified (principal); K21.9 Gastro-esophageal reflux disease without esophagitis; K76.0 Fatty (change of) liver, not elsewhere classified; Z79.899 Other long term (current) drug therapy | CPT/HCPCS: 99212 ==

== ENCOUNTER 2024-02-04 06:18 | Day surgery (SDC) | payer MEDICARE, SELFPAY ==
[2024-02-02 15:10] VITALS: BMI 30.8
--- NOTE | 2024-02-03 10:22 | P.CONAN_ITS ---
Documented by User: Lilly Abel NP 02/03/24 10:26 HPI - Anesthesia Eval Consult details Narrative: 68yo M for Upper Endoscopy and Colonoscopy Follows [facility]. No cardiac contraindication to procedure Eliquis for afib ETOH Cirrhosis PMF Active Problems Active Problems: All Active Problems Pre-op examination (Acute) PAF (paroxysmal atrial fibrillation) (Acute) Hypertension (Acute) Nephrolithiasis (Acute) Dysphagia (Acute) Tubulovillous adenoma of colon (Acute) Bile salt-induced diarrhea (Acute) Essential (primary) hypertension (Acute) GERD (gastroesophageal reflux disease) (Acute) Gastropathy (Acute) Schatzki's ring (Acute) Hepatic steatosis (Acute) History of ETOH abuse (Acute) Past Medical History Medical History HTN (hypertension) Afib History of cardioversion Persistent atrial fibrillation Oral bleeding History of COVID-19 Cellulitis of face History of ETOH abuse Hepatic steatosis Schatzki's ring Gastropathy GERD (gastroesophageal reflux disease) Arthritis Cirrhosis Diarrhea Family History Family History Father Lung cancer Mother Thyroid condition HTN (hypertension) Lung cancer CVD (cardiovascular disease) Sister Breast cancer Son Pulmonary embolism Blood clot in vein Family history of problems with anesthesia: No Surgical History Surgical History Hx of cholecystectomy Hx of eye surgery History of esophagogastroduodenoscopy (EGD) Hx of colonoscopy History of back surgery History of Problems with Anesthesia: No Social History Social History Household Members: Spouse Household Members Other:: adult children and grandchildren. Housing: House Do you presently have visiting nurse or other home services: No Alcohol intake: never Patient Tobacco Use Status: Never used Tobacco e-Cigarette/Vaping Use: Never Used Second Hand Smoke Exposure: No Use of substances other than those prescribed or required for medical reasons: No Are you DNR?: No Advance Directives: No Advance Directives Information Provided: Yes service: No Current occupational status: retired Cognitive needs: No Hearing needs: No Vision needs: No Meds Allergies Allergy/AdvReac Type Severity Reaction Status Date / Time codeine [CODEINE] Allergy Intermediate loopy Verified 02/04/24 06:52 feeling hydrocodone Allergy Intermediate Vomiting Verified 02/04/24 06:52 pseudoephedrine Allergy Intermediate HEART Verified 02/04/24 06:52 [PSEUDOEPHEDRINE] PALPITATIONS Penicillins [PENICILLINS] AdvReac Intermediate C-DIFF Verified 02/04/24 06:52 diarrhea BANDAIDS Allergy Intermediate RASH Uncoded 02/04/24 06:52 Home Medications ?Medication ?Instructions ?Recorded ?Confirmed ?Last Taken ?Type cyclosporine 0.05 % eye drops in a 1 drp ophthalmic (eye) Q12H 11/14/20 02/02/24 01/07/23 History dropperette (Restasis) tadalafil 5 mg tablet 5 mg PO DAILY PRN urinary urgency 02/19/21 02/02/24 Unknown History cholecalciferol (vitamin D3) 25 25 mcg PO DAILY 11/27/22 02/02/24 01/28/23 08:00 History mcg (1,000 unit) capsule (Vitamin D3) multivitamin 1 tab PO DAILY 11/27/22 02/02/24 01/28/23 08:00 History Fish Oil 1 cap PO DAILY 03/11/23 02/02/24 02/01/24 History amlodipine 10 mg tablet 10 mg PO DAILY 01/26/24 02/02/24 02/04/24 History econazole 1 % topical cream 1 appl topical BID 01/26/24 02/02/24 Unknown History nystatin 100,000 unit/gram topical 1 appl topical BID-TID 01/26/24 02/02/24 Unknown History powder dronedarone 400 mg tablet 400 mg PO BID 02/02/24 02/02/24 Unknown History prednisolone acetate (PF) 1 % eye 1 drp ophthalmic (eye) QID 02/02/24 02/02/24 Unknown History drops,suspension sucralfate 1 gram tablet 1 g PO BID 02/02/24 02/02/24 Unknown History Exam Height,Weight and Vital Signs: Height 6 ft Weight 102.965 kg Narrative Narrative: EKG 10/2023 per cardiac note: NSR ECHO 2022 Nml EF, no valve disease NM cardiolite stress test 2022 Impression: 1. Myocardial perfusion imaging study shows normal myocardial perfusion 2. Gated LVEF is 60% 3. Transient ischemic dilatation not present US abdomen complete 12/2023 IMPRESSION: 1. Increased hepatic parenchymal heterogeneity and echogenicity could be associated with hepatocellular disease/hepatic steatosis and severely limits visualization. Correlation with liver function tests and clinical exam recommended to determine further management. 2. Gallbladder surgically absent. Assessment and Plan Assessment Anesthesia Assessment: Chart Reviewed Final Anesthetic Review Family History of Problems with Anesthesia: No History of Problems with Anesthesia: No Documented by User: Debra Amado MD 02/04/24 07:37 PMFSH Past Medical History Medical History HTN (hypertension) Afib History of cardioversion Persistent atrial fibrillation Oral bleeding History of COVID-19 Cellulitis of face History of ETOH abuse Hepatic steatosis Schatzki's ring Gastropathy GERD (gastroesophageal reflux disease) Arthritis Cirrhosis Diarrhea Family History Family History Father Lung cancer Mother Thyroid condition HTN (hypertension) Lung cancer CVD (cardiovascular disease) Sister Breast cancer Son Pulmonary embolism Blood clot in vein Surgical History Surgical History Hx of cholecystectomy Hx of eye surgery History of esophagogastroduodenoscopy (EGD) Hx of colonoscopy History of back surgery Social History Social History Household Members: Spouse Household Members Other:: adult children and grandchildren. Housing: House Do you presently have visiting nurse or other home services: No Alcohol intake: never Patient Tobacco Use Status: Never used Tobacco e-Cigarette/Vaping Use: Never Used Second Hand Smoke Exposure: No Use of substances other than those prescribed or required for medical reasons: No Are you DNR?: No Advance Directives: No Advance Directives Information Provided: Yes service: No Current occupational status: retired Cognitive needs: No Hearing needs: No Vision needs: No Meds Allergies Allergy/AdvReac Type Severity Reaction Status Date / Time codeine [CODEINE] Allergy Intermediate loopy Verified 02/04/24 06:52 feeling hydrocodone Allergy Intermediate Vomiting Verified 02/04/24 06:52 pseudoephedrine Allergy Intermediate HEART Verified 02/04/24 06:52 [PSEUDOEPHEDRINE] PALPITATIONS Penicillins [PENICILLINS] AdvReac Intermediate C-DIFF Verified 02/04/24 06:52 diarrhea BANDAIDS Allergy Intermediate RASH Uncoded 02/04/24 06:52 Home Medications ?Medication ?Instructions ?Recorded ?Confirmed ?Last Taken ?Type cyclosporine 0.05 % eye drops in a 1 drp ophthalmic (eye) Q12H 11/14/20 02/02/24 01/07/23 History dropperette (Restasis) tadalafil 5 mg tablet 5 mg PO DAILY PRN urinary urgency 02/19/21 02/02/24 Unknown History cholecalciferol (vitamin D3) 25 25 mcg PO DAILY 11/27/22 02/02/24 01/28/23 08:00 History mcg (1,000 unit) capsule (Vitamin D3) multivitamin 1 tab PO DAILY 11/27/22 02/02/24 01/28/23 08:00 History Fish Oil 1 cap PO DAILY 03/11/23 02/02/24 02/01/24 History amlodipine 10 mg tablet 10 mg PO DAILY 01/26/24 02/02/24 02/04/24 History econazole 1 % topical cream 1 appl topical BID 01/26/24 02/02/24 Unknown History nystatin 100,000 unit/gram topical 1 appl topical BID-TID 01/26/24 02/02/24 Unknown History powder dronedarone 400 mg tablet 400 mg PO BID 02/02/24 02/02/24 Unknown History prednisolone acetate (PF) 1 % eye 1 drp ophthalmic (eye) QID 02/02/24 02/02/24 Unknown History drops,suspension sucralfate 1 gram tablet 1 g PO BID 02/02/24 02/02/24 Unknown History Exam Airway Mallampati Class: III (globally poor dentition; hx of difficult intubation ) TM Dist: >3cm Neck ROM: Full Loose/Missing/Broken Teeth: Yes, Upper and Lower Heart: RRR Lungs: CTA Assessment and Plan Assessment Anesthesia Assessment: Anesthesia Plan Discussed Final Anesthetic Review NPO: Yes ASA Class: III Final Preanesthetic Review: Meds/Allgs Chart Reviewed, Consent Obtained/Reviewed and Anes Risks/Benef Reviewed Patient Risk: Intermediate Procedure Risk: Intermediate Anesthetic Plan Anesthetic Plan: MAC: Disposition: Standard PACU
--- NOTE | 2024-02-04 06:26 | MHC.SHP ---
Pre-Procedural Eval Section A - 24 Hr Update-Section A only Date of Service: 02/04/24 Section B - Complete if H&P > 30 days Chief Complaint: Benign neoplasm of colon,dysphagia Relevant Family History (Specify if Yes): No Relevant Social History: None Present Medications: see Short Stay Collaborative assessment Medical History: Significant History (HTN (hypertension) Afib History of cardioversion Persistent atrial fibrillation Oral bleeding History of COVID-19 Cellulitis of face History of ETOH abuse Hepatic steatosis Schatzki's ring Gastropathy GERD (gastroesophageal reflux disease) Arthritis Cirrhosis Diarrhea) History of Previous Operations: Relevant previous surgery/procedure and date(s) (Hx of cholecystectomy Hx of eye surgery History of esophagogastroduodenoscopy (EGD) Hx of colonoscopy History of back surgery) Allergies: Allergies Allergy/AdvReac Type Severity Reaction Status Date / Time codeine [CODEINE] Allergy Intermediate loopy Verified 01/26/24 09:07 feeling hydrocodone Allergy Intermediate Vomiting Verified 01/26/24 09:07 pseudoephedrine Allergy Intermediate HEART Verified 01/26/24 09:07 [PSEUDOEPHEDRINE] PALPITATIONS Penicillins [PENICILLINS] AdvReac Intermediate C-DIFF Verified 01/26/24 09:07 diarrhea BANDAIDS Allergy Intermediate RASH Uncoded 04/16/23 09:58 Review of Systems Sugical H&P ROS: Negative: Constitution, Cardiovascular, Respiratory, Neurological, Psychiatric, Hem-Onc, Allergic/Immunologic, Gastrointestinal, Genitourinary, Musculoskeletal, Integumentary, Endocrine and Eyes/Ears/Nose/Throat Exam Surgical H&P Exam: Normal: HEENT, Normal: Heart, Normal: Lungs, Normal: Extremities, Normal: Abdomen, Normal: Skin and Normal: Neurological Plan Diagnosis/Plan: Unchanged I have reviewed the history and physical and performed a pertinent physical examination on my patient. No changes have occurred unless specified. Time Spent With Patient Time: Total time managing care of this patient today ____ minutes.
[2024-02-04 06:45] VITALS: BP 145/78; PULSE 59; RESP 18; TEMP 36.6; O2SAT 95; BMI 30.5
[2024-02-04 06:48] VITALS: BMI 30.5
[2024-02-04 07:02] LABS: Hemoglobin 16.4 g/dl (14.0-18.0); Mean Corpuscular HGB Conc 34.2 g/dl (31.0-36.0); Mean Corpuscular Hemoglobin 29.9 pg (27.0-33.0); Mean Corpuscular Volume 87.4 fL (80.0-98.0); Platelet Count 225 X10*3/uL (160-400); Red Blood Count 5.49 X10*6/uL (4.60-5.80); Red Cell Distribution Width 13.7 % (11.0-16.0); White Blood Count 6.3 X10*3/uL (4.8-10.8)
[2024-02-04] MEDS: Lactated Ringers 1,000 ML 100 ML IVCONT (07:11)
[2024-02-04 07:12] LABS: Prothrombin Time 12.4 SEC (11.1-13.3)
[2024-02-04 07:15] LABS: Alanine Aminotransferase 25 U/L (0-40); Albumin Level 4.2 g/dL (3.5-5.0); Alkaline Phosphatase 55 U/L (39-117); Anion Gap 14 (12-20); Aspartate Amino Transferase 22 U/L (5-37); Bilirubin Total 0.8 mg/dL (0.0-1.0); Blood Urea Nitrogen 6 mg/dL (9-16); Calcium 9.3 mg/dL (8.4-10.2); Carbon Dioxide 23 mmol/L (22-29); Chloride 109 mmol/L (96-108); Creatinine Clr Calc Pharmacy 114.8; Estimated Glomerular Filt Rate > 60; Glucose Fasting 92 mg/dL (60-99); Potassium 3.4 mmol/L (3.3-5.1); Sodium 143 mmol/L (135-145); Total Protein 7.6 g/dL (6.5-8.0)
--- NOTE | 2024-02-04 08:19 | HO.OPN-COLON ---
Colonoscopy Operative Note Operative Note Date of Service: 02/04/24 Narrative: .Operative Information Procedure Description: EGD, Colonoscopy Indication: dysphagia and hx of colon polyps Anesthesia: MAC FLEXIBLE TRANSORAL UPPER GASTROINTESTINAL ENDOSCOPY AND COLONOSCOPY PROCEDURE NOTE UPPER ENDOSCOPY Consent: Indications for the procedure and potential complications of bleeding, perforation, reaction to medications and missed diagnosis were discussed with the patient and informed consent was obtained. Instrument: Olympus GIF H 190 J mid size upper endoscope Monitoring: Vital signs and clinical assessment, continuous EKG monitoring, Pulse oximetry, Carbon Dioxide monitoring and blood pressure monitoring were done throughout the procedure. Procedure: The patient was placed in the left lateral decubitis position and pre-procedure medications were administered and a bite block was placed. The endoscope was inserted into the mouth and advanced under direct vision to the third part of duodenum. A careful inspection was made as the upper endoscope was withdrawn including a retroflexed examination of the proximal stomach; Findings and interventions are described below. Findings: Larynx:normal Esophagus: GE junction at 40 cm, diaphragm hiatus at 40 cm, ballon dilation at UES to 20 mm and LES to 18 mm, no tears seen, bx taken from distal and proximal esophagus Stomach: moderate pallor and erythema. Biopsies were obtained. Grade 2 flap valve on retroflexed examination of the cardia. Pylorus seemed tight, dilated to 20 mm, no tears seen Duodenum: Normal bulb and descending duodenum, Intervention: Biopsies as noted above, balloon dilation COLONOSCOPY Instrument: Olympus variable stiffness ADULT scope 190L Colonoscopy Monitoring: Vital signs and clinical assessment, continuous EKG monitoring, Pulse oximetry, Carbon Dioxide monitoring and blood pressure monitoring were done throughout the procedure. Colon withdrawal time was 10 minutes. Procedure: The patient was placed in the left lateral decubitis position and pre-procedure medications were administered. After a digital rectal examination of the ano-rectum, the video colonoscope was inserted into the rectum and advanced through the colon to the cecum/TI. The colonoscope was slowly withdrawn in a retrograde panoramic fashion and the colon mucosa was carefully examined including a retroflexed view of the rectum. Findings and interventions are described below. Procedure Difficulty:moderate Findings: Terminal Ileum-not intubated Cecum:normal Ascending Colon: x 2 sessile polyps 4-6 mm removed with cold forceps Transverse Colon -normal Descending Colon:normal Sigmoid Colon: moderate diverticulosis Rectum: Retroflexion with small internal hemorrhoids, grade I Anorectum - normal Colon preparation: [place] Bowel Preparation Scale Right colon; 2 Transverse colon: 2 Left colon; 2 (0 = Unprepared colon segment with mucosa not seen due to solid stool that cannot be cleared. 1 = Portion of mucosa of the colon segment seen, but other areas of the colon segment not well seen due to staining, residual stool and/or opaque liquid. 2 = Minor amount of residual staining, small fragments of stool and/or opaque liquid, but mucosa of colon segment seen well. 3 = Entire mucosa of colon segment seen well with no residual staining, small fragments of stool or opaque liquid) Impression and Post Procedure Diagnosis: Endoscopy Findings: gastritis Colonoscopy Findings: diverticulosis colon polyps internal hemorrhoids Plan: Await Pathology results Repeat Colonoscopy in 3-5 years or earlier if clinically indicated High fiber diet leaflet avoid straining at stool, epsom salts and sitz bath, anusol supps or cream if ongoing dysphagia then refer for manometry Above findings were reviewed with the patient and relevant handouts were provided if indicated.
[2024-02-04 08:24] VITALS: BP 126/72; PULSE 69; RESP 16; TEMP 36.5; O2SAT 96
[2024-02-04 08:39] VITALS: BP 114/68; PULSE 66; RESP 16; TEMP 36.5; O2SAT 95
== END 2024-02-04 09:25 | disposition home or self-care (01) ==
PROVIDERS: Nurse Practitioner; PCP Family Medicine; Visit Provider Internal Medicine Gastroenterology
PROC: (CPT 43249; principal; 2024-02-04 07:30)
DX: K29.70 Gastritis, unspecified, without bleeding (principal); K22.2 Esophageal obstruction; K21.9 Gastro-esophageal reflux disease without esophagitis; Z12.11 Encounter for screening for malignant neoplasm of colon; D12.2 Benign neoplasm of ascending colon; K57.30 Diverticulosis of large intestine without perforation or abscess without bleeding; K64.0 First degree hemorrhoids; Z86.010 Personal history of colon polyps; I10 Essential (primary) hypertension; K76.0 Fatty (change of) liver, not elsewhere classified; K90.89 Other intestinal malabsorption; I48.0 Paroxysmal atrial fibrillation; Z79.01 Long term (current) use of anticoagulants; Z79.899 Other long term (current) drug therapy
CPT/HCPCS: 43249; 43239; 45380; 36415; 80053; 85027; 85610; 88305; 88313; 88342; C1726; J1596; J2704

== ENCOUNTER → 2024-02-04 06:18 | Outpatient (BNV) | payer MEDICARE, SELFPAY | PROVIDERS: PCP Family Medicine; Visit Provider Internal Medicine Gastroenterology | DX: R13.10 Dysphagia, unspecified (principal); K29.70 Gastritis, unspecified, without bleeding; D12.2 Benign neoplasm of ascending colon; Z86.010 Personal history of colon polyps; K57.30 Diverticulosis of large intestine without perforation or abscess without bleeding; K64.0 First degree hemorrhoids | CPT/HCPCS: 43239; 43249; 45380 ==

== ENCOUNTER 2024-02-17 10:40 | Outpatient (AMB) | payer MEDICARE, SELFPAY ==
--- NOTE | 2024-02-17 10:42 | MHC.OFFVIS ---
Vital Signs 02/17/24 10:43 Height 6 ft Weight 224 lb 13.944 oz BMI 30.5 BP 138/66 Blood Pressure Location Lt brachial Position Sitting Pulse 59 Intake Visit Reasons: s/p colon Intake Note: Justice presents to in office visit today s/p colonoscopy. CC: Patient states that he is doing good and denies having any GI concerns today. Message Broker Developer Required: No Accompanied by: Self / Same As Patient Allergies codeine [CODEINE] Allergy (Intermediate, Verified 02/17/24 10:50) loopy feeling hydrocodone Allergy (Intermediate, Verified 02/17/24 10:50) Vomiting pseudoephedrine [PSEUDOEPHEDRINE] Allergy (Intermediate, Verified 02/17/24 10:50) HEART PALPITATIONS Penicillins [PENICILLINS] Adverse Reaction (Intermediate, Verified 02/17/24 10:50) C-DIFF diarrhea BANDAIDS Allergy (Intermediate, Uncoded 02/04/24 06:52) RASH HPI HPI s/p colon: Details: Assessment & Plan (1) Dysphagia: Code(s): R13.10 - Dysphagia, unspecified Category: Medical (2) GERD (gastroesophageal reflux disease): Code(s): K21.9 - Gastro-esophageal reflux disease without esophagitis Category: Medical (3) Hepatic steatosis: Comment: K70.30, Ultrasound elastography shows F3-F4 fibrosis 2019., 07/2019 ABIMBOLA and mitochondrial antibodies are negative smooth muscle antibodies are mildly elevated at 28, FERRITIN IS NORMAL AT 136, ALPHA FETOPROTEIN marker is 1.8, GGT is normal at 22. He had a history of heavy alcohol abuse earlier in life but has not had alcohol for the past 5 years Current Laboratory Tests 12/21/23 09:39 Total Bilirubin 0.6 Direct Bilirubin 0.3 AST 19 ALT 26 Alkaline Phosphatase 61 Alpha Fetoprotein 1.3 US ABD 12/23/23 FINDINGS: PANCREAS: Limited visualization of pancreatic tail and head. Imaged portion of pancreatic body is unremarkable. ABDOMINAL AORTA: Limited visualization. INFERIOR VENA CAVA: Visualized portions are normal. LIVER: Increased hepatic parenchymal heterogeneity and echogenicity could be associated with hepatocellular disease/hepatic steatosis and severely limits visualization. Correlation with liver function tests and clinical exam recommended to determine further management. GALLBLADDER: Surgically absent. COMMON BILE DUCT: Normal in caliber measuring 0.49 cm in diameter. RIGHT KIDNEY: No hydronephrosis. No renal calculi. Limited visualization. The kidney measures 15.0 cm in maximum dimension. LEFT KIDNEY: No hydronephrosis. No renal calculi. Limited visualization. The kidney measures 13.5 cm in maximum dimension. SPLEEN: Normal. The spleen measures 11.2 cm in maximum dimension. FREE FLUID: None. US/US abdomen complete IMPRESSION: 1. Increased hepatic parenchymal heterogeneity and echogenicity could be associated with hepatocellular disease/hepatic steatosis and severely limits visualization. Correlation with liver function tests and clinical exam recommended to determine further management. 2. Gallbladder surgically absent. Code(s): K76.0 - Fatty (change of) liver, not elsewhere classified Category: Medical Plan He continue to do well. He He is having dysphasia of solids getting stuck at the sternal notch, at times lower. His voice is raspy as well, but he is only taking the protonix prn....EDUCATED TO TAKE IT EVERY DAY TWICE A DAY. He is dieting and losing weight and his LFT's are improving. Has EGD coming up. HIs zak/brandy He will keep his appointment after his endoscopy. COLONOSCOPY/EGD 02/04/24 Findings: Larynx:normal Esophagus: GE junction at 40 cm, diaphragm hiatus at 40 cm, ballon dilation at UES to 20 mm and LES to 18 mm, no tears seen, bx taken from distal and proximal esophagus Stomach: moderate pallor and erythema. Biopsies were obtained. Grade 2 flap valve on retroflexed examination of the cardia. Pylorus seemed tight, dilated to 20 mm, no tears seen Duodenum: Normal bulb and descending duodenum, Findings: Terminal Ileum-not intubated Cecum:normal Ascending Colon: x 2 sessile polyps 4-6 mm removed with cold forceps Transverse Colon -normal Descending Colon:normal Sigmoid Colon: moderate diverticulosis Rectum: Retroflexion with small internal hemorrhoids, grade I Anorectum - normal Impression and Post Procedure Diagnosis: Endoscopy Findings: gastritis Colonoscopy Findings: diverticulosis colon polyps internal hemorrhoids Plan: Await Pathology results Repeat Colonoscopy in 3-5 years or earlier if clinically indicated High fiber diet leaflet avoid straining at stool, epsom salts and sitz bath, anusol supps or cream if ongoing dysphagia then refer for manometry BIOPSY Received: 02/04/24 Diagnosis A. Colon, ascending, polyps: Tubular adenomas (2 pieces); negative for high-grade dysplasia and carcinoma. B. Stomach, biopsy: Gastric body mucosa with minimal chronic inactive gastritis; negative for H pylori, intestinal metaplasia and dysplasia. C. Esophagus, distal, biopsy: Squamous mucosa with no specific change; no columnar mucosa present. D. Esophagus, proximal, biopsy: Squamous mucosa with no specific change; no columnar mucosa present. Medications: Refilled pantoprazole 40 mg PO BID 180 tabs 6RF K21.9 - Gastro-esophageal reflux disease without esophagitis, K31.9 - Disease of stomach and duodenum, unspecified TODAY'S VISIT He thinks that the dilation helped a little, but he still has trouble with liquids at the epiglottis and choking liquid goes into my lungs. He had looked up achalasia in Dr. Renee...but his sx are not c/w this dx. Sounds more neurologic, and there was a past barium swallow showing retention in the valecula. Kaleb repeat this study with speech therapy. His voice is raspy and the is still a ? of aspiration/gerd vs allergies. He has a lot of sinusitis. He continue on patoprazole bid 40mg. He is agreeable to 3-5 year follow up on colonoscopy. The procedure was well tolerated. The results were explained and the patient is agreeable to the follow-up interval as stated. The bowel pattern has returned to normal. Education was provided to tell any 1st degree relatives about their findings to be sure that they are screened by age 45. Educated that they will be put on a recall list when it is time for their repeat scope but should they move out of state or away from the hospital they will need to remember along with their primary to repeat the procedure in a timely fashion to avoid any adverse complications. After barium swallow. [facility] Medical History (Updated 02/17/24 @ 16:45 by MARIELA Zendejas) Pre-op examination Dysphagia HTN (hypertension) Afib History of cardioversion Persistent atrial fibrillation Oral bleeding History of COVID-19 Cellulitis of face History of ETOH abuse Hepatic steatosis Schatzki's ring Gastropathy GERD (gastroesophageal reflux disease) Arthritis Cirrhosis Diarrhea Surgical History (Updated 02/17/24 @ 10:44 by MELINDA Yuen) Hx of cholecystectomy Hx of eye surgery History of esophagogastroduodenoscopy (EGD) Hx of colonoscopy History of back surgery Family History Father Lung cancer Mother Thyroid condition HTN (hypertension) Lung cancer CVD (cardiovascular disease) Sister Breast cancer Son Pulmonary embolism Blood clot in vein Social History Household Members: Spouse Household Members Other:: adult children and grandchildren. Housing: House Do you presently have visiting nurse or other home services: No Alcohol intake: never Patient Tobacco Use Status: Never used Tobacco e-Cigarette/Vaping Use: Never Used Second Hand Smoke Exposure: No service: No Current occupational status: retired Cognitive needs: No Hearing needs: No Vision needs: No Review of Systems Const Denies fatigue, Denies fever(s), Denies night sweats, Denies poor appetite and Denies weight loss ENT Reports Normal hearing present, Denies dental pain, Reports dysphagia, Denies hearing loss, Denies mouth pain, Denies odynophagia, Denies throat swelling, Denies tongue swelling and Reports other (Dentition adequate) Card Reports no additional complaints Resp Reports no additional complaints GI Details: Denies abdominal pain, Denies melena, Denies bloating, Denies hematochezia, Denies constipation, Denies GI cramping, Reports dysphagia, Denies excessive flatus, Denies early satiety, Reports heartburn, Denies diarrhea, Denies nausea, Denies odynophagia, Denies vomiting and Denies hematemesis Skin/Breast Denies pruritus, Denies lesions, Denies rash and Denies jaundice Neuro Reports Normal hearing present and Denies Abnormal speech present Endo Denies fatigue Aller/Immun Denies throat swelling and Denies tongue swelling Physical Exam Vital Signs: Last Vital Signs Pulse 59 02/17/24 10:43 BP 138/66 02/17/24 10:43 BMI result Body Mass Index 30.5 Const General: cooperative, no acute distress, well developed and well groomed Nutritional Appearance: well nourished and obese Orientation/consciousness: oriented to person, oriented to place and oriented to time Limitations: No language barrier HEENT Head: Yes normocephalic and Yes atraumatic Eyes General: appearance normal, both eyes and all related structures Pupils: Equal, round and reactive pupils present Neck Neck: Yes normal visual inspection and Yes no lymphadenopathy Thyroid: Thyroid normal Resp Effort & Inspection: normal respiratory effort and able to speak in complete sentences Auscultation: clear to auscultation bilaterally Cardio Rate: regular rate Rhythm: regular rhythm Heart sounds: Normal, physiologic split S2 sound present Peripheral pulses: radial pulses present and posterior tibial pulses present GI Inspection: No distended, No Abdominal panniculus present and Yes obesity Palpation (GI): Soft to palpation, nontender, no guarding, not rigid and No hepatosplenomegaly present Percussion: Yes normal to percussion Auscultation: normal bowel sounds Rectal Exam - Male: Yes deferred Skin General skin exam: no rashes or lesions noted, turgor normal, skin not dry, no jaundice, No spider nevi and no striae Rashes: no rashes Nails: normal Neuro General: oriented to person, oriented to place and oriented to time Cranial nerves: Yes Equal, round and reactive pupils present and Yes Normal hearing present Speech: No Abnormal speech present Extrem General: Yes normal to inspection, No clubbing, No cyanosis and No edema Psych Appearance: grossly normal and well kempt Mental Status: mental status grossly normal Speech and movement: Normal speech and movement present Affect: normal affect Attitude: cooperative Thought process: Normal thought process present and not confabulating Thought content: Normal thought content present Insight: Limited insight present (Psych) Judgement: Limited judgement present (Psych) Assessment & Plan Assessment & Plan (1) Oral phase dysphagia: Code(s): R13.11 - Dysphagia, oral phase Category: Medical (2) Tubulovillous adenoma of colon: Comment: 01/2024 SCOPE= 2 TA IS REPEAT IN 5 YEARS; 2019 SCOPE COLON The procedure should be repeated in 1 year due to a tubulovillous adenoma and a tubular adenoma. 11/2020 7 polyps with repeat in 2 years. Code(s): D12.6 - Benign neoplasm of colon, unspecified Category: Medical (3) Bile salt-induced diarrhea: Code(s): K90.89 - Other intestinal malabsorption Category: Medical (4) GERD (gastroesophageal reflux disease): Code(s): K21.9 - Gastro-esophageal reflux disease without esophagitis Category: Medical Plan He thinks that the dilation helped a little, but he still has trouble with liquids at the epiglottis and choking liquid goes into my lungs. He had looked up achalasia in Dr. Renee...but his sx are not c/w this dx. Sounds more neurologic, and there was a past barium swallow showing retention in the valecula. Kaleb repeat this study with speech therapy. His voice is raspy and the is still a ? of aspiration/gerd vs allergies. He has a lot of sinusitis. He continue on patoprazole bid 40mg. He is agreeable to 3-5 year follow up on colonoscopy. The procedure was well tolerated. The results were explained and the patient is agreeable to the follow-up interval as stated. The bowel pattern has returned to normal. Education was provided to tell any 1st degree relatives about their findings to be sure that they are screened by age 45. Educated that they will be put on a recall list when it is time for their repeat scope but should they move out of state or away from the hospital they will need to remember along with their primary to repeat the procedure in a timely fashion to avoid any adverse complications. After barium swallow. Orders: Orders [place] barium swallow modified Today R13.11 - Dysphagia, oral phase Coding Level of Care Code Est Pt Level 3 (16859) Diagnoses Oral phase dysphagia R13.11 Tubulovillous adenoma of colon D12.6 Bile salt-induced diarrhea K90.89 GERD (gastroesophageal reflux disease) K21.9
[2024-02-17 10:43] VITALS: BP 138/66; PULSE 59; BMI 30.5
== END 2024-02-17 11:26 | disposition home or self-care (01) ==
PROVIDERS: PCP Internal Medicine; Visit Provider Nurse Practitioner
DX: R13.11 Dysphagia, oral phase (principal); D12.6 Benign neoplasm of colon, unspecified; K90.89 Other intestinal malabsorption; K21.9 Gastro-esophageal reflux disease without esophagitis
CPT/HCPCS: 99213

== ENCOUNTER → 2024-02-17 10:40 | Outpatient (BNVA) | payer MEDICARE, SELFPAY | PROVIDERS: PCP Internal Medicine; Visit Provider Nurse Practitioner | DX: K90.89 Other intestinal malabsorption (principal); K21.9 Gastro-esophageal reflux disease without esophagitis; R13.11 Dysphagia, oral phase; D12.6 Benign neoplasm of colon, unspecified | CPT/HCPCS: 99212 ==

== ENCOUNTER 2024-03-09 14:01 | Outpatient (REF) | payer MEDICARE, SELFPAY ==
--- NOTE | ~2024-03-09 | FL_ITS ---
EXAMINATION: Modified Barium Swallow CLINICAL INFORMATION: Dysphagia. COMPARISON: None. TECHNIQUE: Modified barium swallow was performed under lateral fluoroscopy with patient in standing position Barium mixed with solids and liquids of different consistencies was administered by the speech pathologist. Examination was recorded in the fluoroscopy suite. FINDINGS: Laryngeal penetration was seen with thin barium. No subglottic aspiration was observed. FLUOROSCOPY TIME: 1 minute 21 seconds Number of Spot Images: N/A DOSE AREA PRODUCT: 494.5 uGy-m2 (microgray-meter squared) FL/FL barium swallow modified IMPRESSION: Laryngeal penetration was seen with thin barium. No subglottic aspiration was observed. Refer to the speech therapy report for further clarification This procedure was performed by Matt Dupree PA-C, and supervised by Dr. Hines
--- NOTE | 2024-03-11 17:01 | MHC.SL.IMP ---
Date of Plan of Treatment: 03/09/24 Onset of Symptoms/Illness: 02/17/24 Date Treatment Started: 03/09/24 Admitting Diagnosis: Dysphagia Primary Speech & Language Diagnosis: R13.12 Oropharyngeal Phase Dysphagia Reason for Today's Visit: 09923 Modified Barium Swallow Study Pre-evaluation Dietary Consistencies: Regular Pre-evaluation Liquid Consistency: Thin Pre-evaluation Medication Administration: Whole with Liquid Medical History: Modified Barium Swallow Study Fluoroscopic Evaluation of Swallowing Function CPT Code 33746 Evaluation Year: 2023 Reason for Study: Difficulty swallowing Referring Physician: Christa SIERRA Evaluating Clinician: Hilda Soto MA, CCC-RING MAKING MACHINE OPERATOR Study Number: 1 Patient Name: Justice Bonilla Status: Outpatient, Ambulatory Age: 68 Gender: Male Medical History Medical History (Updated 02/17/24 @ 16:45 by MARIELA Zendejas) Pre-op examination Dysphagia HTN (hypertension) Afib History of cardioversion Persistent atrial fibrillation Oral bleeding History of COVID-19 Cellulitis of face History of ETOH abuse Hepatic steatosis Schatzki's ring Gastropathy GERD (gastroesophageal reflux disease) Arthritis Cirrhosis Diarrhea Surgical History (Updated 02/17/24 @ 10:44 by Wallace Taveras [facility]) Hx of cholecystectomy Hx of eye surgery History of esophagogastroduodenoscopy (EGD) Hx of colonoscopy History of back surgery Current (pre-evaluation) Intake/Diet: Route: PO Diet Grade: Regular Liquid Consistencies: Thin Pre-Study Functional Oral Intake Scale (FOIS): 7- Total oral intake with no restrictions Pain: None reported at time of study SUBJECTIVE: Patient is a 68 year old male with history of Schatzki?s ring, gastropathy, and GERD, referred by Gastroenterology for a modified barium swallow study. Patient reports difficulties swallowing with both solids and liquids. He reports feeling food stuck at the sternal notch and at times lower and always needing to drink water with his meals to get it down. He also reports coughing on liquids. He has had a balloon dilation done which he reports helped a little but he still has trouble with liquids ?going into his lungs.? Is patient able to manage secretions?: Yes Is patient able to produce volitional cough?: Yes Food and Liquid Trials: Oral Impairment: Lip Closure: Did not test Oral Impairment: Tongue Control During Bolus Hold: 0=Cohesive bolus between tongue to palatal seal Oral Impairment: Bolus Preparation/Mastication: 1=Slow prolonged chewing/mashing with complete re-collection Oral Impairment: Bolus Transport/Lingual Motion: 0=Brisk tongue motion Oral Impairment: Oral Residue: 1=Trace residue lining oral structures Oral Impairment:Initiation of Pharyngeal Swallow: 0=Bolus head at posterior angle of ramus (first hyoid excursion) Pharyngeal Impairment: Soft Palate Elevation: 0=No bolus between soft palate (SP)/pharyngeal wall (PW) Pharyngeal Impairment: Laryngeal Elevation: 1=Partial thyroid cartilage/arytenoids to epiglottic petiole movement Pharyngeal Impairment: Anterior Hyoid Excursion: 1=Partial anterior movement Pharyngeal Impairment: Epiglottic Movement: 1=Partial inversion Pharyngeal Impairment: Laryngeal Vestibular Closure:: 1=Incomplete: narrow column air/contrast in laryngeal vestibule Pharyngeal Impairment: Pharyngeal Stripping Wave: 0=Present: complete Pharyngeal Impairment: Pharyngeal Contraction: Did not test Pharyngeal Impairment: Pharyngoesophageal Segment Openin=Partial distention/partial duration: partial obstruction of flow Pharyngeal Impairment: Tongue Base (TB) Retraction: 1=Trace column of contrast/air between TB and posterior PW Pharyngeal Impairment: Pharyngeal Residue: 2=Collection of residue within or on pharyngeal structures Pharyngeal Impairment: Esophageal Clearance Upright Position: Did not test Impressions and Recommendations Clinical Observations: OBJECTIVE: Time-out: performed at 14:45 Evaluation Start: 14:30; Stop: 14:35 Patient Positioning: Standing Viewing Planes: LATERAL ONLY Contrast: MBSImP? Standardized Protocol using commercially prepared, standardized Barium viscosities, including: Varibar? THIN LIQUID (40% w/v, <15 cps) , 1/2 Shortbread Cookie (1 x1 x.25 ) MBSImP ID: [id number] MBSImP Results: Lip closure for intraoral bolus containment could not be assessed due to logistical reasons not related to physiologic impairment. Tongue control during bolus hold maintained a cohesive bolus held between tongue to palate seal. Bolus preparation and mastication resulted in slow, prolonged chewing/mashing but with complete re-collection. Bolus transport/lingual motion was with brisk tongue motion. Oral residue was a trace, lining oral structures. Initiation of the pharyngeal swallow occurred as the bolus head reached the posterior angle of the mandibular ramus. Soft palate elevation resulted in no bolus between the soft palate and the pharyngeal wall. Laryngeal elevation was decreased, with partial superior movement of the thyroid cartilage/partial approximation of the arytenoids to the epiglottic petiole. Anterior hyoid excursion demonstrated partial anterior movement. Epiglottic movement resulted in partial inversion. Laryngeal vestibular closure was incomplete, with a narrow column of air/contrast noted within the laryngeal vestibule at the height of the swallow. Pharyngeal stripping wave was present and complete. Pharyngeal contraction could not be determined due to logistical reasons not related to physiologic impairment. Pharyngoesophageal segment opening demonstrated partial distension/partial duration, with partial obstruction of bolus flow. Tongue base retraction allowed a trace column of contrast or air between the retracted tongue base and the posterior pharyngeal wall. Pharyngeal residue was a collection of residue within or on pharyngeal structures. Esophageal clearance in the upright position could not be assessed due to logistical reasons not related to physiologic impairment. Oral Impairment Score: 1 (absence of score, component 1) Pharyngeal Impairment Score: 7 (absence of score, component 13) Esophageal Impairment Score: --- (absence of score, component 17) Laryngeal Penetration and Aspiration: Penetration was observed in today's study. Thin Contrast entered the airway, remained above the vocal folds, and was ejected from the airway. Structural Abnormalities Noted: Anterior osteophyte observed by radiologist. ASSESSMENT: Clinician Assessment: This exam was conducted by the radiologist and the speech pathologist. Patient was standing for lateral view only and was able to feed independently. He consumed thin liquid, puree, and regular solid (Leticia Doone cookie) consistencies. Patient demonstrated brisk and timely lingual transport. Good lingual control with no premature posterior escape of bolus. Patient was observed to take small bites and to chew slowly. There was trace residue on the tongue, which cleared with subsequent swallows. Pharyngeal swallow trigger was timely, initiated at the posterior angle of the ramus. No evidence of nasopharyngeal reflux. Partial laryngeal elevation with partial epiglottic inversion. There was intermittent flash penetration with trace amount of thin liquid and coating of the posterior epiglottis which spontaneously cleared. No evidence of aspiration with intake of liquids and solids during this exam. There was trace pooling in the valleculae and the pyriform sinuses with intake of thin and puree textures. Note increased retention with harder solid, with mild residue coating the posterior pharyngeal wall as well as the valleculae and pyriform sinuses. Patient was able to clear pharyngeal residue with liquid wash. Liquid Intake Recommendation: Thin Liquid Intake Strategies: Small Sips Dietary Recommendations: Regular Medication Administration: Whole with Liquid Please contact the pharmacy regarding appropriate crushable or liquid drug formulations that are available whenever modified delivery is recommended. Compensatory Strategies Recommended: Sitting Upright (90 deg), Double Swallow, Small Bites and Sips, Alternate Liquids/Solids, Rate of Ingestion Change, Avoid Specific Foods Recommendation for Speech Therapy: NA:Typical Evaluation Text Comment: Intake Recommendations: Route: PO Diet Grade: Regular Liquid Consistencies: Thin Post-Study Functional Oral Intake Scale (FOIS): 6- Total oral intake with no special preparation, but must avoid specific foods or liquid items Intermittent flash penetration with thin liquid. No evidence of aspiration during this exam. Mild oral and pharyngeal residuals cleared with liquid wash. Recommend patient continue on regular texture diet and thin liquids with general aspiration precautions to maximize safety, including to take small bites of food, chew food well, moisten food as needed with sauces and gravies, alternate bites with sips of liquid, take small sips, avoid taking sequential sips, maintain upright position when eating and drinking. Avoid foods which are overly hard or tough to chew. Suggested Referrals: The patient might benefit from a referral to: Gastroenterology Indication for Referral: Continue workup Therapy Recommendations: MBSS findings and recommendations were discussed with the patient after the exam, with patient denying having any questions at this time. Therapy will be discontinued. Recommend patient to continue monitoring his dysphagia. If there are any changes or worsening of symptoms, consult PCP, at which point a repeat exam may be warranted. The following compensatory strategies and/or therapeutic exercises will be part of the upcoming therapy/management plan: Liquid Wash Additional Swallow(s) per Bolus Clinician - Supplemental, Miscellaneous Communication: It is important to note MBSS objective studies are snapshots in time and Patient function might vary with factors such as time of day or concomitant medical conditions. For this reason, the final treatment plan for this patient should rest with their medical care team. Additional recommendations should be considered with the totality of the Patient in mind. Thank for the opportunity to participate in the care of this patient. If you have any questions about the content of this report, please contact the [facility] at [facility]. Education: Education regarding findings from today's study and plans for therapy were provided to Patient only through Verbal Instruction. Understanding was expressed by the Patient only. Manufacturing Operator Clinician/Clinical Fellow: No Supervisory Statement: N/A Speech Language Pathologist: Hilda Soto M.A., [facility]-RING MAKING MACHINE OPERATOR
== END 2024-03-09 14:02 | disposition home or self-care (01) ==
LOC: HO.XRAY 14:01
PROVIDERS: Visit Provider Nurse Practitioner
DX: R13.11 Dysphagia, oral phase (principal)
CPT/HCPCS: 74230; 92611

== ENCOUNTER → 2024-03-09 14:30 | Outpatient (BNV) | payer MEDICARE, SELFPAY | PROVIDERS: Visit Provider Physician Assistant Surgical | DX: R13.11 Dysphagia, oral phase (principal) | CPT/HCPCS: 74230 ==

== ENCOUNTER 2024-05-18 10:50 | Outpatient (AMB) | payer MEDICARE, SELFPAY ==
--- NOTE | 2024-05-18 10:53 | MHC.OFFVIS ---
Vital Signs 05/18/24 10:59 Height 6 ft Weight 224 lb BMI 30.4 BP 113/57 L Blood Pressure Location Lt brachial Position Sitting Pulse 85 Intake Visit Reasons: 3 month follow up Intake Note: Patient follow up for dysphagia, bite of diarrhea and Barium Swallow test results. Patient cc: abdominal pain with bloating, little of acid reflex , diarrhea on and off, and swallowing difficulty and some dizziness come and go. 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 Accompanied by: Self / Same As Patient Allergies codeine [CODEINE] Allergy (Intermediate, Verified 05/18/24 10:57) loopy feeling hydrocodone Allergy (Intermediate, Verified 05/18/24 10:57) Vomiting pseudoephedrine [PSEUDOEPHEDRINE] Allergy (Intermediate, Verified 05/18/24 10:57) HEART PALPITATIONS Penicillins [PENICILLINS] Adverse Reaction (Intermediate, Verified 05/18/24 10:57) C-DIFF diarrhea BANDAIDS Allergy (Intermediate, Uncoded 02/04/24 06:52) RASH HPI HPI 3 month follow up: Details: Assessment & Plan (1) Oral phase dysphagia: Code(s): R13.11 - Dysphagia, oral phase Category: Medical (2) Tubulovillous adenoma of colon: Comment: 01/2024 SCOPE= 2 TA IS REPEAT IN 5 YEARS; 2019 SCOPE COLON The procedure should be repeated in 1 year due to a tubulovillous adenoma and a tubular adenoma. 11/2020 7 polyps with repeat in 2 years. Code(s): D12.6 - Benign neoplasm of colon, unspecified Category: Medical (3) Bile salt-induced diarrhea: Code(s): K90.89 - Other intestinal malabsorption Category: Medical (4) GERD (gastroesophageal reflux disease): Code(s): K21.9 - Gastro-esophageal reflux disease without esophagitis Category: Medical Plan He thinks that the dilation helped a little, but he still has trouble with liquids at the epiglottis and choking liquid goes into my lungs. He had looked up achalasia in Dr. Renee...but his sx are not c/w this dx. Sounds more neurologic, and there was a past barium swallow showing retention in the valecula. Kaleb repeat this study with speech therapy. His voice is raspy and the is still a ? of aspiration/gerd vs allergies. He has a lot of sinusitis. He continue on patoprazole bid 40mg. He is agreeable to 3-5 year follow up on colonoscopy. The procedure was well tolerated. The results were explained and the patient is agreeable to the follow-up interval as stated. The bowel pattern has returned to normal. Education was provided to tell any 1st degree relatives about their findings to be sure that they are screened by age 45. Educated that they will be put on a recall list when it is time for their repeat scope but should they move out of state or away from the hospital they will need to remember along with their primary to repeat the procedure in a timely fashion to avoid any adverse complications. After barium swallow. Orders: Orders FL barium swallow modified Today R13.11 - Dysphagia, oral phase MODIFIED BARIUM SWALLOW 03/21/24 FINDINGS: Laryngeal penetration was seen with thin barium. No subglottic aspiration was observed. FLUOROSCOPY TIME: 1 minute 21 seconds Number of Spot Images: N/A DOSE AREA PRODUCT: 494.5 uGy-m2 (microgray-meter squared) FL/FL barium swallow modified IMPRESSION: Laryngeal penetration was seen with thin barium. No subglottic aspiration was observed. SPEECH THERAPY REPORT Liquid Intake Recommendation: Thin Liquid Intake Strategies: Small Sips Dietary Recommendations: Regular Medication Administration: Whole with Liquid Please contact the pharmacy regarding appropriate crushable or liquid drug formulations that are available whenever modified delivery is recommended. Compensatory Strategies Recommended: Sitting Upright (90 deg), Double Swallow, Small Bites and Sips, Alternate Liquids/Solids, Rate of Ingestion Change, Avoid Specific Foods Recommendation for Speech Therapy: NA:Typical EvaluationText Comment: Intake Recommendations: Route: PO Diet Grade: Regular Liquid Consistencies: Thin Post-Study Functional Oral Intake Scale (FOIS): 6- Total oral intake with no special preparation, but must avoid specific foods or liquid items Intermittent flash penetration with thin liquid. No evidence of aspiration during this exam. Mild oral and pharyngeal residuals cleared with liquid wash. Recommend patient continue on regular texture diet and thin liquids with general aspiration precautions to maximize safety, including to take small bites of food, chew food well, moisten food as needed with sauces and gravies, alternate bites with sips of liquid, take small sips, avoid taking sequential sips, maintain upright position when eating and drinking. Avoid foods which are overly hard or tough to chew. Suggested Referrals: The patient might benefit from a referral to: Gastroenterology Indication for Referral: Continue workup Therapy Recommendations: MBSS findings and recommendations were discussed with the patient after the exam, with patient denying having any questions at this time. Therapy will be discontinued. Recommend patient to continue monitoring his dysphagia. If there are any changes or worsening of symptoms, consult PCP, at which point a repeat exam may be warranted. The following compensatory strategies and/or therapeutic exercises will be part of the upcoming therapy/management plan: Liquid Wash Additional Swallow(s) per Bolus TODAY'S VISIT He continues on Carafate and pantoprazole twice a day. He uses the carafate prn and I encourage him to take some with him in his pocket to avoid mishaps (he carries metoprolol anyway). We review the test results and so far it appears that the dysphagia is largely neurologic, as at times he has trouble initiating the swallow. This happens with both solids and liquids. ROV 6 mos. PFSH Medical History (Updated 05/18/24 @ 11:26 by MARIELA Zendejas) Dysphagia Pre-op examination HTN (hypertension) Afib History of cardioversion Persistent atrial fibrillation Oral bleeding History of COVID-19 Cellulitis of face History of ETOH abuse Hepatic steatosis Schatzki's ring Gastropathy GERD (gastroesophageal reflux disease) Arthritis Cirrhosis Diarrhea Surgical History Hx of cholecystectomy Hx of eye surgery History of esophagogastroduodenoscopy (EGD) Hx of colonoscopy History of back surgery Family History Father Lung cancer Mother Thyroid condition HTN (hypertension) Lung cancer CVD (cardiovascular disease) Sister Breast cancer Son Pulmonary embolism Blood clot in vein Social History Household Members: Spouse Household Members Other:: adult children and grandchildren. Housing: House Do you presently have visiting nurse or other home services: No Alcohol intake: never Patient Tobacco Use Status: Never used Tobacco e-Cigarette/Vaping Use: Never Used Second Hand Smoke Exposure: No service: No Current occupational status: retired Cognitive needs: No Hearing needs: No Vision needs: No Review of Systems Const Denies fatigue, Denies fever(s), Denies night sweats, Denies poor appetite and Denies weight loss ENT Reports Normal hearing present, Denies dental pain, Reports dysphagia, Denies hearing loss, Denies mouth pain, Denies odynophagia, Denies throat swelling, Denies tongue swelling and Reports other (Dentition adequate) Card Reports no additional complaints Resp Reports no additional complaints GI Details: Denies abdominal pain, Denies melena, Denies bloating, Denies hematochezia, Denies constipation, Denies GI cramping, Reports dysphagia, Denies excessive flatus, Denies early satiety, Reports heartburn, Reports diarrhea, Denies nausea, Denies odynophagia, Denies vomiting and Denies hematemesis Skin/Breast Denies pruritus, Denies lesions, Denies rash and Denies jaundice Neuro Reports Normal hearing present and Denies Abnormal speech present Endo Denies fatigue Aller/Immun Denies throat swelling and Denies tongue swelling Physical Exam Vital Signs: Last Vital Signs Pulse 85 05/18/24 10:59 BP 113/57 L 05/18/24 10:59 BMI result Body Mass Index 30.4 Const General: cooperative, no acute distress, well developed and well groomed Nutritional Appearance: well nourished and obese Orientation/consciousness: oriented to person, oriented to place and oriented to time Limitations: No language barrier HEENT Head: Yes normocephalic and Yes atraumatic Eyes General: appearance normal, both eyes and all related structures Pupils: Equal, round and reactive pupils present Neck Neck: Yes normal visual inspection and Yes no lymphadenopathy Thyroid: Thyroid normal Resp Effort & Inspection: normal respiratory effort and able to speak in complete sentences Auscultation: clear to auscultation bilaterally Cardio Rate: regular rate Rhythm: regular rhythm Heart sounds: Normal, physiologic split S2 sound present Peripheral pulses: radial pulses present and posterior tibial pulses present GI Inspection: No distended and No Abdominal panniculus present Palpation (GI): Soft to palpation, nontender, no guarding, not rigid and No hepatosplenomegaly present Percussion: Yes normal to percussion Auscultation: normal bowel sounds Rectal Exam - Male: Yes deferred Skin General skin exam: no rashes or lesions noted, turgor normal, skin not dry, no jaundice, No spider nevi and no striae Rashes: no rashes Nails: normal Neuro General: oriented to person, oriented to place and oriented to time Cranial nerves: Yes Equal, round and reactive pupils present and Yes Normal hearing present Speech: No Abnormal speech present Extrem General: Yes normal to inspection, No clubbing, No cyanosis and No edema Psych Appearance: grossly normal and well kempt Mental Status: mental status grossly normal Speech and movement: Normal speech and movement present Affect: normal affect Attitude: cooperative Thought process: Normal thought process present and not confabulating Thought content: Normal thought content present Insight: Fair insight present (Psych) Judgement: Fair judgement present (Psych) Results Reviewed Results Reviewed: MODIFIED BARIUM SWALLOW 03/21/24 FINDINGS: Laryngeal penetration was seen with thin barium. No subglottic aspiration was observed. FLUOROSCOPY TIME: 1 minute 21 seconds Number of Spot Images: N/A DOSE AREA PRODUCT: 494.5 uGy-m2 (microgray-meter squared) FL/FL barium swallow modified IMPRESSION: Laryngeal penetration was seen with thin barium. No subglottic aspiration was observed. SPEECH THERAPY REPORT Liquid Intake Recommendation: Thin Liquid Intake Strategies: Small Sips Dietary Recommendations: Regular Medication Administration: Whole with Liquid Please contact the pharmacy regarding appropriate crushable or liquid drug formulations that are available whenever modified delivery is recommended. Compensatory Strategies Recommended: Sitting Upright (90 deg), Double Swallow, Small Bites and Sips, Alternate Liquids/Solids, Rate of Ingestion Change, Avoid Specific Foods Recommendation for Speech Therapy: NA:Typical EvaluationText Comment: Intake Recommendations: Route: PO Diet Grade: Regular Liquid Consistencies: Thin Post-Study Functional Oral Intake Scale (FOIS): 6- Total oral intake with no special preparation, but must avoid specific foods or liquid items Intermittent flash penetration with thin liquid. No evidence of aspiration during this exam. Mild oral and pharyngeal residuals cleared with liquid wash. Recommend patient continue on regular texture diet and thin liquids with general aspiration precautions to maximize safety, including to take small bites of food, chew food well, moisten food as needed with sauces and gravies, alternate bites with sips of liquid, take small sips, avoid taking sequential sips, maintain upright position when eating and drinking. Avoid foods which are overly hard or tough to chew. Suggested Referrals: The patient might benefit from a referral to: Gastroenterology Indication for Referral: Continue workup Therapy Recommendations: MBSS findings and recommendations were discussed with the patient after the exam, with patient denying having any questions at this time. Therapy will be discontinued. Recommend patient to continue monitoring his dysphagia. If there are any changes or worsening of symptoms, consult PCP, at which point a repeat exam may be warranted. The following compensatory strategies and/or therapeutic exercises will be part of the upcoming therapy/management plan: Liquid Wash Additional Swallow(s) per Bolus Assessment & Plan Assessment & Plan (1) GERD (gastroesophageal reflux disease): Code(s): K21.9 - Gastro-esophageal reflux disease without esophagitis Category: Medical (2) Bile salt-induced diarrhea: Code(s): K90.89 - Other intestinal malabsorption Category: Medical (3) Dysphagia: Code(s): R13.10 - Dysphagia, unspecified Category: Medical Plan He continues on Carafate and pantoprazole twice a day. He uses the carafate prn and I encourage him to take some with him in his pocket to avoid mishaps (he carries metoprolol anyway). We review the test results and so far it appears that the dysphagia is largely neurologic, as at times he has trouble initiating the swallow. This happens with both solids and liquids. ROV 6 mos. Orders: Referrals Gastroenterology Referral R13.10 - Dysphagia, unspecified Medications: New sucralfate 1 g PO BID 60 tabs 6RF K90.89 - Other intestinal malabsorption Refilled pantoprazole 40 mg PO BID 180 tabs 6RF K21.9 - Gastro-esophageal reflux disease without esophagitis, K31.9 - Disease of stomach and duodenum, unspecified Coding Level of Care Code Est Pt Level 3 (55185) Diagnoses GERD (gastroesophageal reflux disease) K21.9 Bile salt-induced diarrhea K90.89 Dysphagia R13.10
[2024-05-18 10:59] VITALS: BP 113/57; PULSE 85; BMI 30.4
== END 2024-05-18 11:37 | disposition home or self-care (01) ==
PROVIDERS: PCP Internal Medicine; Visit Provider Nurse Practitioner
DX: K21.9 Gastro-esophageal reflux disease without esophagitis (principal); K90.89 Other intestinal malabsorption; R13.10 Dysphagia, unspecified
CPT/HCPCS: 99213

== ENCOUNTER → 2024-05-18 10:50 | Outpatient (BNVA) | payer MEDICARE, SELFPAY | PROVIDERS: PCP Internal Medicine; Visit Provider Nurse Practitioner | DX: K21.9 Gastro-esophageal reflux disease without esophagitis (principal); K90.89 Other intestinal malabsorption; R13.10 Dysphagia, unspecified | CPT/HCPCS: 99212 ==

== ENCOUNTER 2024-09-02 07:38 | Outpatient (REF) | payer MEDICARE, SELFPAY ==
[2024-09-02 11:36] LABS: Prostate Specific Antigen 0.41 ng/mL (<0.05-4.0)
== END 2024-09-02 07:39 | disposition home or self-care (01) ==
LOC: HO.HMGCLDS 07:38
PROVIDERS: PCP Family Medicine; Visit Provider Urology
DX: N40.1 Benign prostatic hyperplasia with lower urinary tract symptoms (principal); Z12.5 Encounter for screening for malignant neoplasm of prostate
CPT/HCPCS: 36415; 84153

== ENCOUNTER 2024-10-25 12:40 | Outpatient (AMB) | payer MEDICARE, SELFPAY ==
[2024-10-25 12:45] VITALS: BP 118/68; PULSE 60; RESP 18; TEMP 36.4; O2SAT 98; BMI 32.0
--- NOTE | 2024-10-25 12:45 | A.OFFPC_ITS ---
Vital Signs 10/25/24 12:45 Height 6 ft Weight 236 lb BMI 32.0 BP 118/68 Blood Pressure Location Lt brachial Position Sitting Respiration 18 Pulse 60 Pulse Source Pulse Oximeter Temp 97.6 F Temp Source Oral Pulse Oximetry (%) 98 Oxygen Delivery Method Room Air Intake Visit Reasons: Heart conditions Intake Note: Pt is here today for a follow up visit. Pt has npt been seen since 2021. Allergies codeine [CODEINE] Allergy (Intermediate, Verified 10/25/24 12:45) loopy feeling hydrocodone Allergy (Intermediate, Verified 10/25/24 12:45) Vomiting pseudoephedrine [PSEUDOEPHEDRINE] Allergy (Intermediate, Verified 10/25/24 12:45) HEART PALPITATIONS Penicillins [PENICILLINS] Adverse Reaction (Intermediate, Verified 10/25/24 12:45) C-DIFF diarrhea BANDAIDS Allergy (Intermediate, Uncoded 10/25/24 12:45) RASH Medication List - Last Reconciled 10/25/24 by Clari Duong MD amlodipine 10 mg PO DAILY apixaban (Eliquis) 5 mg PO BID cholecalciferol (vitamin D3) (Vitamin D3) 25 mcg PO DAILY cyclosporine 0.09% (Cequa) 1 drp ophthalmic (eye) BID dronedarone 400 mg PO BID econazole nitrate 1% 1 appl topical BID [Fish Oil 1 cap PO DAILY] lisinopril 20 mg PO BID metoprolol succinate ER 50 mg (1/2 x 100 mg) PO BID 90 days multivitamin 1 tab PO DAILY nystatin 1 appl topical BID-TID pantoprazole 40 mg PO BID [probiotic PO BID] sucralfate 1 g PO BID tadalafil 5 mg PO DAILY PRN Tobacco use date assessed: 10/25/24 Fall risk assessment: 1 Fall in past year Last assessed Fall Risk: 10/25/24 Dental Screening Dental Screen Date: 10/25/24 Did you have a dental visit in the last 12 months?: Yes Did you have a dental problem in the last 6 months where you did not have access to dental care?: No Was dental information given to patient?: Patient has dentist HPI Heart conditions HPI Details Patient presents for the follow-up on hypertension paroxysmal AFib s/p catheter ablation on Eliquis for anticoagulation and rhythm controlled on Multaq, chronic GERD, status post Schatzki ring dilation in 01/2024, established with GI. [facility] Medical History (Updated 10/25/24 @ 14:18 by Clari Duong MD) Dysphagia Pre-op examination HTN (hypertension) Afib History of cardioversion Persistent atrial fibrillation Oral bleeding History of COVID-19 Cellulitis of face History of ETOH abuse Hepatic steatosis Schatzki's ring Gastropathy GERD (gastroesophageal reflux disease) Arthritis Cirrhosis Diarrhea Surgical History (Updated 10/25/24 @ 14:21 by Clari Duong MD) Hx of cholecystectomy Hx of eye surgery History of esophagogastroduodenoscopy (EGD) Hx of colonoscopy History of back surgery Family History Father Lung cancer Mother Thyroid condition HTN (hypertension) Lung cancer CVD (cardiovascular disease) Sister Breast cancer Son Pulmonary embolism Blood clot in vein Social History Household Members: Spouse Household Members Other:: adult children and grandchildren. Housing: House Do you presently have visiting nurse or other home services: No Alcohol intake: never Patient Tobacco Use Status: Never used Tobacco e-Cigarette/Vaping Use: Never Used Second Hand Smoke Exposure: No service: No Current occupational status: retired Cognitive needs: No Hearing needs: No Vision needs: No Questionnaire PHQ-9 Over the last 2 weeks, how often have you been bothered by any of the following problems? 1. Little interest or pleasure in doing things: not at all 2. Feeling down, depressed, or hopeless: not at all 3. Trouble falling or staying asleep, or sleeping too much: not at all 4. Feeling tired or having little energy: not at all 5. Poor appetite or overeating: not at all 6. Feeling bad about yourself - or that you are a failure or have let yourself or your family down: not at all 7. Trouble concentrating on things, such as reading the newspaper or watching television: not at all 8. Moving or speaking so slowly that other people could have noticed. Or the opposite - being so fidgety or restless that you have been moving around a lot more than usual: not at all 9. Thoughts that you would be better off or of hurting yourself in some way: not at all Total score: 0 Depression Screening Interpretation: Negative Depression Screening Done: Yes 42881 - PHQ-9 Billing: Yes Source: Developed by Drs. Ted Leal, Meg Gao, Lionel Chong and colleagues, with an educational dona from [employer]. Thrive Questionnaire Date Thrive assessed: 10/25/24 I am a: Patient What is your living situation today?: I choose not to answer this question Within the past 12 months, did the food you bought not last and you didn't have the money to get more?: I choose not to answer this question Within the past 12 months, did you worry whether your food would run out before you got money to buy more?: I choose not to answer this question Do you have trouble paying for medicines?: I choose not to answer this question Do you have trouble getting transportation to medical appointments?: I choose not to answer this question Do you have trouble paying your heating and electricity bill?: I choose not to answer this question Do you have trouble taking care of your child, family member or friend?: I choose not to answer this question Do you have trouble with day-to-day activities such as bathing, preparing meals, shopping, managing finances, etc.?: I choose not to answer this question Are you currently unemployed and looking for a job?: I choose not to answer this question Are you interested in more education?: I choose not to answer this question THRIVE Score: 0 AUDIT C Alcohol Use Questionnaire (AUDIT-C) 1. How often do you have a drink containing alcohol?: Never 3. How often do you have six or more drinks on one occasion?: Never Total Score: 0 FREDI-7 AMB Questionnaire FREDI-7 Date FREDI - 7 assessed: 10/25/24 Feeling nervous, anxious, or on edge: 0 = Not at all Not being able to stop or control worryin = Not at all Worrying too much about different things: 0 = Not at all Trouble relaxin = Not at all Being so restless that it is hard to sit still: 0 = Not at all Becoming easily annoyed or irritable: 0 = Not at all Feeling afraid as if something awful might happen: 0 = Not at all Total FREDI-7 score (0-4 normal; 5-9 mild; 10-14 moderate; 15-21 severe): 0 Source: Developed by Drs. Ted Leal, Meg Gao, Lionel Chong and colleagues, with an educational dona from [employer]. FREDI-7 Assessment Billing FREDI-7 Assessment Tool: FREDI-7 Assessment 73936 Review of Systems Const All systems reviewed & are unremarkable except as noted in HPI and below Eyes Reports no additional complaints ENT Reports no additional complaints Card Reports no additional complaints Resp Reports no additional complaints GI Reports no additional complaints Reports no additional complaints Physical exam (Primary Care) Vital Signs: Last Vital Signs Temp 97.6 F 10/25/24 12:45 Pulse 60 10/25/24 12:45 Resp 18 10/25/24 12:45 BP 118/68 10/25/24 12:45 Pulse Ox 98 10/25/24 12:45 Oxygen Delivery Method Room Air 10/25/24 12:45 BMI result Body Mass Index 32.0 Tobacco/Smoking Status: Tobacco use Status Tobacco use date assessed 10/25/24 10/25/24 12:48 Patient Tobacco Use Status Never used Tobacco 10/25/24 12:48 e-Cigarette/Vaping Use Never Used 10/25/24 12:48 PHQ-9: PHQ-9 Score PHQ-9: Total score 0 10/25/24 12:48 Depression Screening Interpretation: Negative Thrive Assessment: Date of Thrive Assessment Date Thrive assessed 10/25/24 10/25/24 12:48 Const General: no acute distress HENMT Head: Yes normal to inspection Face and sinus: Yes normal facial exam Throat: Yes posterior oropharynx normal Eyes General: appearance normal, both eyes and all related structures Neck Neck: Yes no lymphadenopathy and Yes supple Resp Effort & Inspection: normal respiratory effort Auscultation: clear to auscultation bilaterally Cardio Rhythm: regular rhythm Heart sounds: S1 normal heart sound present and S2 normal heart sound present GI Inspection: Yes normal to inspection Palpation (GI): Soft to palpation Percussion: Yes normal to percussion Auscultation: normal bowel sounds Coding Level of Care Code Est Pt Level 4 (75161) Complex EM visit Add On G2211 Diagnoses Back pain M54.9 Hypertension I10 Essential (primary) hypertension I10 Afib I48.91 GERD (gastroesophageal reflux disease) K21.9 Obesity E66.9 Annual physical exam Z00.00 Hx of colonoscopy Z98.890 Additional Codes FREDI-7 Assessment Billing - FREDI-7 Assessment Tool: FREDI-7 Assessment 92368 ([id number]) PHQ-9 - 98885 - PHQ-9 Billing: Yes ([id number]) Assessment & Plan Assessment & Plan (1) Back pain: Code(s): M54.9 - Dorsalgia, unspecified Category: Medical Plan: Patient requests referral to chiropractor for chronic lower back pain (2) Hypertension: Code(s): I10 - Essential (primary) hypertension Category: Medical Plan: Continue current medications (3) Essential (primary) hypertension: Code(s): I10 - Essential (primary) hypertension Category: Medical Plan: Continue current medications (4) Afib: Comment: [facility]-prior cardioversion [facility] [place], s/p catheter ablation 2023, on Multaq and Eliquis Code(s): I48.91 - Unspecified atrial fibrillation Category: Medical Plan: Continue current medications follow-up with the Cardiology (5) GERD (gastroesophageal reflux disease): Comment: EGD 01/2024, Schatzki ring status post balloon dilation, maintained on PPI and Carafate Code(s): K21.9 - Gastro-esophageal reflux disease without esophagitis Category: Medical Plan: Continue PPI Carafate and anti GERD diet (6) Obesity: Code(s): E66.9 - Obesity, unspecified Category: Medical Plan: Decrease caloric intake increase physical activity weight loss discussed with the patient (7) Annual physical exam: Code(s): Z00.00 - Encounter for general adult medical examination without abnormal findings Category: Medical Plan: Well-balanced diet regular physical activity discussed with the patient he will follow-up in 6 months with a fasting labs before (8) Hx of colonoscopy: Comment: 06/01/2019 w/ EGD Dr. Kan- [facility] & 2020, 02/04/24 Dr. Kan 2 polyps TA, repeat 5 yrs Code(s): Z98.890 - Other specified postprocedural states Category: Surgical Plan: Repeat colonoscopy in 5 years Orders: Orders Comprehensive [place]. Panel Fast 6 Months I10 - Essential (primary) hypertension, I48.0 - Paroxysmal atrial fibrillation Complete Blood Count Auto Diff 6 Months I10 - Essential (primary) hypertension, I48.0 - Paroxysmal atrial fibrillation Lipid Panel 6 Months I10 - Essential (primary) hypertension, I48.0 - Paroxysmal atrial fibrillation TSH reflex Free T4 6 Months I10 - Essential (primary) hypertension, I48.0 - Paroxysmal atrial fibrillation Referrals Chiropractic Referral M54.9 - Dorsalgia, unspecified
== END 2024-10-25 13:47 | disposition home or self-care (01) ==
PROVIDERS: PCP Family Medicine; Visit Provider Internal Medicine
DX: M54.9 Dorsalgia, unspecified (principal); I48.91 Unspecified atrial fibrillation; E66.9 Obesity, unspecified; Z68.32 Body mass index [BMI] 32.0-32.9, adult; I10 Essential (primary) hypertension; K21.9 Gastro-esophageal reflux disease without esophagitis; Z98.890 Other specified postprocedural states

== ENCOUNTER → 2024-10-25 12:40 | Outpatient (BNVA) | payer OTHER, SELFPAY | PROVIDERS: PCP Family Medicine; Visit Provider Internal Medicine | DX: I10 Essential (primary) hypertension (principal); I48.0 Paroxysmal atrial fibrillation; M54.50 Low back pain, unspecified; K21.9 Gastro-esophageal reflux disease without esophagitis; E66.9 Obesity, unspecified; Z68.32 Body mass index [BMI] 32.0-32.9, adult; Z79.01 Long term (current) use of anticoagulants; Z79.899 Other long term (current) drug therapy | CPT/HCPCS: 96127; 99212 ==

== ENCOUNTER 2024-12-16 10:52 | Outpatient (AMB) | payer MEDICARE, SELFPAY ==
[2024-12-16 11:10] VITALS: BP 132/80; PULSE 63; TEMP 37; O2SAT 98; BMI 32.0
--- NOTE | 2024-12-16 11:10 | MHC.OFFWIV ---
Intake Vital Signs 12/16/24 11:10 Height 6 ft Weight 236 lb BMI 32.0 BP 132/80 Blood Pressure Location Rt brachial Position Sitting Pulse 63 Pulse Source Pulse Oximeter Temp 98.6 F Temp Source Oral Pulse Oximetry (%) 98 Intake Visit Reasons: EP-sore on top of mouth, nasal Patient Tobacco Use Status: Never used Tobacco Allergies codeine [CODEINE] Allergy (Intermediate, Verified 12/16/24 11:10) loopy feeling hydrocodone Allergy (Intermediate, Verified 12/16/24 11:10) Vomiting pseudoephedrine [PSEUDOEPHEDRINE] Allergy (Intermediate, Verified 12/16/24 11:10) HEART PALPITATIONS Penicillins [PENICILLINS] Adverse Reaction (Intermediate, Verified 12/16/24 11:10) C-DIFF diarrhea BANDAIDS Allergy (Intermediate, Uncoded 10/25/24 12:45) RASH Do you need a note to return to daycare/school/sports/work: No HPI EP-sore on top of mouth, nasal HPI Details Patient is a 69-year-old male with hypertension, obesity, and acid reflux as well as history of alcohol abuse, who comes to the walk-in clinic complaining of a sore to the top of his mouth for the last few days. He reports that it is healing, but he is concerned that it is still present at day 3, and it is aggravated with eating hard foods. No known trauma to the area, and he denies significant acid reflux, nausea vomiting or diarrhea, bleeding or discharge, fever or chills, weakness or dizziness, myalgias or malaise, or other significant associated symptoms. [facility] Medical History Dysphagia Pre-op examination HTN (hypertension) Afib History of cardioversion Persistent atrial fibrillation Oral bleeding History of COVID-19 Cellulitis of face History of ETOH abuse Hepatic steatosis Schatzki's ring Gastropathy GERD (gastroesophageal reflux disease) Arthritis Cirrhosis Diarrhea Surgical History Hx of cholecystectomy Hx of eye surgery History of esophagogastroduodenoscopy (EGD) Hx of colonoscopy History of back surgery Family History Father Lung cancer Mother Thyroid condition HTN (hypertension) Lung cancer CVD (cardiovascular disease) Sister Breast cancer Son Pulmonary embolism Blood clot in vein Social History Household Members: Spouse Household Members Other:: adult children and grandchildren. Housing: House Do you presently have visiting nurse or other home services: No Alcohol intake: never Patient Tobacco Use Status: Never used Tobacco e-Cigarette/Vaping Use: Never Used Second Hand Smoke Exposure: No service: No Current occupational status: retired Cognitive needs: No Hearing needs: No Vision needs: No Review of Systems Const All systems reviewed & are unremarkable except as noted in HPI and below Physical Exam Vital Signs: Last Vital Signs Temp 98.6 F 12/16/24 11:10 Pulse 63 12/16/24 11:10 BP 132/80 12/16/24 11:10 Pulse Ox 98 12/16/24 11:10 BMI result Body Mass Index 32.0 HEENT Mouth: No abnormal TMJ, no trismus and other (ulcerated lesion superior to the top front teeth, in the hard palate ridge) Assessment & Plan Assessment & Plan (1) Aphthous ulcer: Code(s): K12.0 - Recurrent oral aphthae Plan: Patient has what looks to be an aphthous ulcer to the area of the Ridges above his upper teeth. It is possible he is having acid reflux up into the mouth cavity, and this could be the source of his ulcers. We also discussed having really good hygiene with brushing and using a mouth solution to be sure he is keeping the mouth clean. We discussed how he could use topical lidocaine that is [id number] the pharmacy, and he still I wrote him for dexamethasone oral solution to swish and spit. He can use for a few days, and if symptoms are persisting, I advised that he have the lesion looked at by GI, or if that is delayed, he can have a dentist inspect it to see if it is worrisome. Medications: New dexamethasone swish for about 5 minutes and spit (5 mL/dose) three times a day. Avoid eating or drinking food for 30 minutes after using 0.5 mg (5 mL) PO TID 315 mL 0RF 3 weeks Coding Level of Care Code Est Pt Level 4 (98860) Diagnoses Aphthous ulcer K12.0
--- OUTSIDE RECORDS SUMMARY | 2024-12-16 12:36 | XMS_ITS ---
Author Organization [facility] Address [address] [place] [phone] Care Team Providers Care Sales And Marketing Representative Name Role Phone Ted Thomas Primary Care Provider Julio Cam Unavailable [phone] Encounters Encounter Location Date Provider Diagnosis [address] [address] 12/13/2024 Julio Pulliam Plan Of Treatment No Information Progress Notes * Justice BONILLA ADOB: [birth year] (69 yo M)Acc No.[id number]:12/13/2024 Progress Note Patient:?Justice BONILLA Provider:?Julio Pulliam DPM :1955???Age:69 Y???Sex:Male Isidro e:12/13/2024 Address:[address] [place] [phone] Pcp:Ted Thomas Subjective: * Chief Complaints: * ??? * Medical History:? Objective: * Vitals:? Assessment: Plan: * Treatment: * Images: * The named appointment provid er may or may not be the originator of this progress note, and it is not deemed complete until electronically signed by the appointment provider. Sign off status: Pending * Provider:?Julio Pulliam DPM Date:?2024 Generated for Katty arriola/Abdirizak/eTransmitting on:?12/16/2024 12:36 PM EDT
--- OUTSIDE RECORDS SUMMARY | 2024-12-16 12:36 | XMS_ITS ---
Author Organization [facility] Address [address] [place] [address] Care Team Providers Care Clerical Warehouseman Name Role Phone Ted Thomas Primary Care Provider Julio Cam [phone] REASON FOR VISIT cx appt 12/13/24 Encounters Encounter Location Date Provider Diagnosis [address] [address] 12/12/2024 Julio Pulliam Plan Of Treatment No Information Progress Notes * Justice BONILLA ADOB: [birth year] (69 yo M)Acc No.[id number]:12/12/2024 Patient:?SERAMARILUJustice Sue :1955???Age:69 Y???Sex:Male Address:[address] [place] [address] [place] [address] * * Date:?
--- OUTSIDE RECORDS SUMMARY | 2024-12-16 12:36 | XMS_ITS | Patient Health Record ---
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 Name Role Phone Ted Thomas Primary Care Provider Julio Cam Unavailable [phone] Allergies Allergen (clinical drug ingredient) Drug/Non Drug Allergy documented on EMR Reaction Allergy Type Onset Date Status amoxicillin Amoxicillin Unknown Drug Allergy Act le Adhesive Unknown Allergy Active codeine Codeine dizzy Drug Allergy Active Reason For Referral No Information Medications Medication SIG (Take, Route, Frequency, Duration) Notes Start Date End Date Status Flecainide Acetate 50 MG as directed Orally Active Econazole Nitrate 1 % External for 30 Active Multivitamin Active Metoprolol & Diet Manage Prod Not-Taking Omeprazole 40 MG 1 capsule Orally Onc e a day 07/13/2017 Active Eliquis 5 MG TAKE 1 TABLET BY RUBÉN TH TWICE A DAY Oral for 30 Days Active Fish Oil Active amLODIPine Besylate 10 MG 1 tablet Orall y Once a day Active Ciclopirox Olamine 0.77 % 1 application to affected area Externally Twice a day for 30 days Active Sucralfate-Malate PRN Ac tive Tadalafil Active Lisinopril 20 MG 1 tablet Orally Once a day 07/13/2017 Active Pantoprazole Sodium Active Amiodarone HCl 200 MG 1 tablet Orally On ce a day for 30 day(s) Active Immunizations Vaccine Route Administration Date Status Comme nts COVID-19 Pfizer BioNTech Vaccine Unknown 07/09/2021 Administered 1st 11/06/2020 2nd 11/18/2020 Influenza Unknown 06/25/2021 Administered Social History Tobacco Use: Social History Observation Description Date Details (start date - stop date) Never Smoker NA - NA Alcohol Screen Question Answer Notes Did you have a drink containing alcohol in the p ast year? No Points 0 Interpretation Negative Tobacco use other than smoking: Question Answer Notes Are you an other tobacco user? No Tobacco Control (Standard) Question Answer Notes Tobacco use: Nonsmoker Problems Problem Type SNOMED Code ICD Code Onset Dates Problem Status W/U Status Risk Notes Problem Onychomycosis (179828886) Onychomycosis (B35.1) Active confirmed Vital Signs Blood pressure diastolic 70 mm Hg 09/20/2024 Height 1iw37bq in 09/20/2024 Blood pressure systolic 120 mm Hg 09/20/2024 Weight 222 lbs 09/20/2024 BMI 30.96 kg/m2 09/20/2024 Procedures Procedure Date Ordered Date Performed Result Body Sit e 32723-YQPNESR NAIL, 6 OR MORE 01/12/2024 N/A 52423-Ttudxuaa Plate 01/12/2024 N/A 71154-IJTIPIL NAIL, 6 OR MORE 03/22/2024 N/A 93876-Hewvzhyz Plate 03/22/2024 N/A 08172-MXTCYXS NAIL, 6 OR MORE 06/14/2024 N/A 00496-PWZEQYE NAIL, 6 OR MORE 09/20/2024 N/A Encounters Encounter Location Date Provider Diagnosis [address] [address] 01/12/2024 Julio Shasha Tinea unguium B35.1 ; Pain in right toe(s) M79.674 ; Pain in left toe(s) M79.675 and Ingrown nail L60.[address] [address] 03/22/2024 Julio Shasha Tinea unguium B35.1 ; Pain in right toe(s) M79.674 ; Pain in left toe(s) M79.675 and Ingrown nail L60.[address] [address] 06/14/2024 Julio Shasha Onychomycosis B35.1 ; Pain in right toe(s) M79.674 and Pain in left toe(s) M79.[address] [address] 09/20/2024 Julio Pulliam Onychomycosis B35.1 ; Pain in right toe(s) M79.674 and Pain in left toe(s) M79.[address] [address] 12/12/2024 [facility] [address] 03/22/2024 Julio Pulliam Assessments Encounter Date Diagnosis (ICD Code) Assessment Notes Treatment Notes Treatment Clinical Notes Section Notes 01/12/2024 Tinea unguium (ICD-10 - B35.1) 01/12/2024 Pain in right toe(s) (ICD-10 - M79.674) 03/22/2024 Tinea unguium (ICD-10 - B35.1) 03/22/2024 Pain in right toe(s) (ICD-10 - M79.674) 06/14/2024 Pain in right toe(s) (ICD-10 - M79.674) 06/14/2024 Onychomycosis (ICD-10 - B35.1) 09/20/2024 Pain in right toe(s) (ICD-10 - M79.674) 09/20/2024 Onychomycosis (ICD-10 - B35.1) 09/20/2024 Pain in left toe(s) (ICD-10 - M79.675) 06/14/2024 Pain in left toe(s) (ICD-10 - M79.675) 03/22/2024 Pain in left toe(s) (ICD-10 - M79.675) 01/12/2024 Pain in left toe(s) (ICD-10 - M79.675) 01/12/2024 Ingrown nail (ICD-10 - L60.0) 03/22/2024 Ingrown nail (ICD-10 - L60.0) Plan Of Treatment Pending Test Test Name Order Date [id number] NAIL, 6 OR MORE 07/13/2017 80311-IGLMSJM NAIL, 6 OR MORE 10/13/2017 26222-YCNNFWC NAIL, 6 OR MORE 01/12/2018 88255-XFXYIXM NAIL, 6 OR MORE 11/05/2018 27039-NJPQZYP NAIL, 6 OR MORE 02/04/2019 12729-TOOYXKA NAIL, 6 OR MORE 06/17/2019 23734-IVQEJZQ NAIL, 6 OR MORE 09/27/2019 97610-ZXSICGX NAIL, 6 OR MORE 01/20/2020 20981-VJZAZRH NAIL, 6 OR MORE 04/27/2020 50230-PJVNHVI NAIL, 6 OR MORE 07/27/2020 09179-KMVRKNX NAIL, 6 OR MORE 11/02/2020 91269-RWSVMMM NAIL, 6 OR MORE 05/29/2021 02275-JNRRTSJ NAIL, 6 OR MORE 08/27/2021 15318-GUBTSMJ NAIL, 6 OR MORE 06/17/2022 29290-VTUXQJQ NAIL, 6 OR MORE 03/06/2023 49191-QZTKJEL NAIL, 6 OR MORE 06/12/2023 29021-PSNIJWF NAIL, 6 OR MORE 08/21/2023 88173-OYYOKPG NAIL, 6 OR MORE 11/03/2023 94801-WEAUVMK NAIL, 6 OR MORE 01/12/2024 81833-LDOHEJA NAIL, 6 OR MORE 03/22/2024 77746-DRYQXDV NAIL, 6 OR MORE 06/14/2024 65512-ACNWLCI NAIL, 6 OR MORE 09/20/2024 94780-Jgwrybfq Plate 03/22/2024 86408-Ccqtxyps Plate 01/12/2024 00364-Eagqqcow Plate 11/03/2023 Insurance Providers Payer Name Payer Address Payer Phone Subscriber Number Group Number Insured Name Patient Relationship to Insured Coverage Start Date Coverage End Date [employer] [address] [place] [address] [id number] Justice Bonilla Self - patient is the insured 4 Medical (General) History Medical History History ICD Code Anxiety disorder Arthritis Back,Hip,and Knee pain Broken bones Hypertension Reflux ( GERD) Chicken pox A - Fib Surgical History Surgery Date(Month/Year) back surgery 1982 gall bladder 2016 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
--- OUTSIDE RECORDS SUMMARY | 2024-12-16 12:36 | XMS_ITS ---
Author Organization [facility] Address [address] [place] [address] Care Team Providers Care Funeral Home Attendant Name Role Phone Ted Thomas Primary Care Provider Julio Cam Unavailable [phone] Allergies Allergen (clinical drug ingredient) Drug/Non Drug Allergy documented on EMR Reaction Allergy Type Onset Date Status amoxicillin Amoxicillin Unknown Drug Allergy Act le Adhesive Unknown Allergy Active codeine Codeine dizzy Drug Allergy Active REASON FOR VISIT Painful nail(s) aggravated by shoes causing difficulty standing/walking Medications Medication SIG (Take, Route, Frequency, Duration) Notes Start Date End Date Status Sucralfate-Malate PRN Ac tive Tadalafil Active Econazole Nitrate 1 % External for 30 Active Metoprolol & Diet Manage Prod Not-Taking Omeprazole 40 MG 1 capsule Orally Onc e a day 07/13/2017 Active Eliquis 5 MG TAKE 1 TABLET BY RUBÉN TWICE A DAY Oral for 30 Days Active Fish Oil Active Ciclopirox Olamine 0.77 % 1 application to affected area Externally Twice a day for 30 days Active Lisinopril 20 MG 1 tablet Orally Once a day 07/13/2017 Active Pantoprazole Sodium Active amLODIPine Besylate 10 MG 1 tablet Orall y Once a day Active Amiodarone HCl 200 MG 1 tablet Orally On ce a day for 30 day(s) Active Flecainide Acetate 50 MG as directed Orally Active Multivitamin Active Social History Tobacco Use: Social History Observation [...] Status W/U Status Risk Notes Problem Onychomycosis (569896920) Onychomycosis (B35.1) Active confirmed Vital Signs Height 4lq72nf in 09/20/2024 Weight 222 lbs 09/20/2024 BMI 30.96 kg/m2 09/20/2024 Blood pressure systolic 120 mm Hg 09/20/19 25 Blood pressure diastolic 70 mm Hg 025 Procedures Procedure Date Ordered Date Performed Result Body Sit e 26705-CEBORHJ NAIL, 6 OR MORE 09/20/2024 N/A Encounters Encounter Location Date Provider Diagnosis [facility] [place] [address] [place] [address] 09/20/2024 Julio Pulliam Onychomycosis B35.1 ; Pain in right toe(s) M79.674 and Pain in left toe(s) M79.675 Assessments Encounter Date Diagnosis (ICD Code) Assessment Notes Treatment Notes Treatment Clinical Notes Section Notes 09/20/2024 Onychomycosis (ICD-10 - B35.1) 09/20/2024 Pain in right toe(s) (ICD-10 - M79.674) 09/20/2024 Pain in left toe(s) (ICD-10 - M79.675) Plan Of Treatment Pending Test Test Name Order Date 33163-MFCWACB NAIL, 6 OR MORE 09/20/2024 Next Appt Details Follow Up: prn, Reason: Procedure Notes * Category Sub-Category Detail Notes Debride Nail 6-10 Nail debridement Due to the cl inical pathology outlined in the exam findings, performance of this nail treatment is medically necessary as its management by an unskilled/untrained nonprofessional would put this patients foot and overall health at risk. Therefore, debridement to affected nail(s), as described in exam ( TA, T1, T2, T3, T4, T5, T6, T7, T8, T9), was performed exclusively by the physician of record to reduce/remove overall nail length, girth, thickness, subungual debris, and necrotic tissue, by manual and/or electrical means through the use of a nail nipper and/or dremel-type carbon plant grinder, to a more viable healthy nail plate or bed tissue 6-10 nails in total. Silver nitrate was used for any petechial bleeding as necessary. Definitive antifungal treatment options, both pharmaceutical and surgical, have been reviewed and discussed with the patient. The patient solely prefers the use of intermittent/as needed professional debridement services for their nail condition and understands the need for additional periodic treatments to maintain effectiveness in symptomatic relief - 07429 Progress Notes * SERAMARILUJustice ADOB: [birth year] (69 yo M)Acc No.[id number]:09/20/2024 Progress Note Patient:?Justice BONILLA A Provider:?Julio Pulliam DPM :1955???Age:69 Y???Sex:Male Isidro e:09/20/2024 Address:[address] [place] [id number] Pcp:Ted Thomas Subjective: * Chief Complaints: * ???Painful nail(s) aggravate d by shoes causing difficulty standing/walking * HPI: ???Painful Nails:?Pt States Last PCP Visit:?Date:?07/06/2024 * ROS:?General/Constitutional:?Nausea?denies.?Vomiting?denies.?Hunger Thirst?denies.?Loss appetite?denies.?Chills?denies.?Fatigue?denies.?Fever?denies.?Night Sweats?denies.?Unexplained weight loss?denies.?Unexplained weight gain?denies.?HEENTM:?Dentures?denies.?Dizziness?denies.?Glasses/contacts?admits.?Retinopathy?de nies.?Blurred/double vision?denies.?TMJ?denies.?Discharge/drainage?denies.?Implants?denies.?Sore throat?denies.?Dental implants?denies.?Hard of hearing ?admits.?Difficulty chewing/swallowing/speaking?denies.?Nose bleeds?denies.?Sore mouth?denies.?Respiratory:?On Oxygen?denies.?Pneumonia/pleurisy?denies.?Bronchitis?denies.?Emphysema?denies.?C oughing?denies.?Cough blood?denies.?Shortness of breath?denies.?Wheezing?denies.?Cardiovascular:?Pacemaker?denies.?MVP?denies.?WPW?denies.?CHF?denies.?Heart attack?denies.?Septal defect?denies.?Rapid beat?denies.?Chest pain ?denies.?Atrial Fib.?admits, that is frequent.?Murmur/Palpitations?denies.?Gastrointestinal:?Hemorrhoids?denies.?Stomach/Abdominal pain?denies.?Dark blood stool?denies.?Irritable bowel ?denies.?Constipation?denies.?Diarrhea?denies.?Hematology:?Swelling?denies.?Clots?denies.?Varicose Veins?denies.?Bruising?admits, on anticoagulants.?Bleeding problem?admits, on anticoagulants.?Genitourinary:?Blood urine?denies.?Frequent/Painfu/urination/bladder control?denies.?Kidney stones?denies.?Infection (UTI)?denies.?Nephropathy?denies.?sex trans dis (STD)?denies.?Prostate?denies.?Musculoskeletal:?Hammertoes?denies.?Bunions?admits.?Back Pain?denies.?Muscle Cramps/ Resting?denies.?Muscle cramps / walking?denies.?Generalized aches and pains?admits.?Weakness?denies.?Integ.:?Pedraza?denies.?Scars?denies.?Corns/calluses?admits.?Ingrown nails?admits.?Painful nails?admits.?Open Sores?denies.?Rashes?denies.?Neurologic:?Difficulty sleeping?denies.?Brain disorder?denies.?Numbness?denies.?Balance trouble?denies.?Confusion?denies.?Fainting/blackouts?denies.?Tingling?denies.?Tr emors?denies.? * Medical History:? * Surgical History:?back surge ry 1982gall bladder 2016Left arm cancer removed 05/2019Colon Polyps removed- pre cancerous 05/2019Esophageal ablation [place] skin cancer removal [facility] ablation for A - Fib Tooth extraction * Hospitalization/Major Diagno stic Procedure:?Dehydration 05/2020[facility] - Spider Bite - given Antibiotic 05/2021[facility] A Fib 4- days 11/2022 * Family History:?Mother: dece ased, diagnosed with Other malignant neoplasm of unspecified site, Unspecified essential hypertension.?Father: , FOOT PROBLEMS, diagnosed with Other malignant neoplasm of unspecified site, Unspecified essential hypertension.? * Social History:?Tobacco Use:?Tobacco use other than smoking?Are you an other tobacco user??No ?Tobacco Control (Standard)?Tobacco use:?Nonsmoker ???Drugs/Alcohol:?Drugs?Have you used drugs other than those for medical reasons in the past 12 months??No ?Alcohol Screen?Did you have a drink containing alcohol in the past year??No ?Points?0 ?Interpretation?Negative ???Miscellaneous:?Caffeine: yes, frequency: very occassionally. ?Children: yes, 7. ?Exercise: yes, walking, exercise. ?Marital status: . 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 * Medications:?TakingAmiodaron e HCl 200 MG Tablet 1 tablet Orally Once a day Flecainide Acetate 50 MG Tablet as directed Orally Multivitamin amLODIPine Besylate 10 MG Tablet 1 tablet Orally Once a day Ciclopirox Olamine 0.77 % Cream 1 application to affected area Externally Twice a day Eliquis 5 MG Tablet TAKE 1 TABLET BY MOUTH TWICE A DAY Oral Fish Oil Lisinopril 20 MG Tablet 1 tablet Orally Once a day Pantoprazole Sodium Sucralfate-Malate , Notes to Pharmacist: PRNTadalafil Omeprazole 40 MG Capsule Delayed Release 1 capsule Orally Once a day Econazole Nitrate 1 % Cream External Taking Amiodarone HCl 200 MG Tablet 1 tablet Orally Once a day Taking Flecainide Acetate 50 MG Tablet as directed Orally Taking Multivitamin Taking amLODIPine Besylate 10 MG Tablet 1 tablet Orally Once a day Taking Ciclopirox Olamine 0.77 % Cream 1 application to affected area Externally Twice a day Taking Eliquis 5 MG Tablet TAKE 1 TABLET BY MOUTH TWICE A DAY Oral Taking Fish Oil Taking Lisinopril 20 MG Tablet 1 tablet Orally Once a day Taking Pantoprazole Sodium Taking Sucralfate-Malate , Notes to Pharmacist: PRNTaking Tadalafil Taking Omeprazole 40 MG Capsule Delayed Release 1 capsule Orally Once a day Taking Econazole Nitrate 1 % Cream External Not-Taking/PRNMetoprolol & Diet Manage Prod Medication List reviewed and reconciled with the patientNot-Taking/PRN Metoprolol & Diet Manage Prod Medication List reviewed and reconciled with the patient * Allergies:?AmoxicillinCodein e: lucitaIftikharsonam[Allergies Verified] Objective: * Vitals:?Ht:4ha25ut, Wt:222, BMI:30.96, Shoe size:10-11, BP:120/70mm Hg, Ht-cm: 180.34 cm, Wt-k.7 kg. * Examination: ???Nails: ?NAILS are:?Elongated, overgrown, dystrophic, lytic, greater than 3mm thick, discolored and friable with crumbly malodorous subungual debris, with pain on palpation, TA, T1, T2, T3, T4, T5, T6, T7, T8, T9.? Assessment: * Assessment: 1.?Pain in right toe(s) - M7 9.674???2.?Onychomycosis - B35.1 (Primary)???3.?Pain in left toe(s) - M79.675??? Plan: * Treatment: * Procedures:?Debride Nail 6-10:?Nail debridement?Due to the clinical pathology outlined in the exam findings, performance of this nail treatment is medically necessary as its management by an unskilled/untrained nonprofessional would put this patients foot and overall health at risk. Therefore, debridement to affected nail(s), as described in exam (?TA, T1, T2, T3, T4, T5, T6, T7, T8, T9), was performed exclusively by the physician of record to reduce/remove overall nail length, girth, thickness, subungual debris, and necrotic tissue, by manual and/or electrical means through the use of a nail nipper and/or dremel-type carbon plant grinder, to a more viable healthy nail plate or bed tissue 6- 10 nails in total. Silver nitrate was used for any petechial bleeding as necessary. Definitive antifungal treatment options, both pharmaceutical and surgical, have been reviewed and discussed with the patient. The patient solely prefers the use of intermittent/as needed professional debridement services for their nail condition and understands the need for additional periodic treatments to maintain effectiveness in symptomatic relief - 10018.? * Procedure Codes:?56505 DEBRI DE NAIL, 6 OR MORE * Follow Up:?prn * Images: * Sign off status: Completed true * Provider:?Julio Pulliam DPM Date:?2024 Generated for Katty arriola/Abdirizak/Zach on:?12/16/2024 12:35 PM EDT History and Physical Notes * HPI (History of Present Illness) Category Sub-Category Detail Notes Category Not es Painful Nails Pt States Last PCP Visit: Date:: 07/06/2024 Examination Category Sub-Category Detail Notes Category Not es Nails NAILS are: Elongated, overg rown, dystrophic, lytic, greater than 3mm thick, discolored and friable with crumbly malodorous subungual debris, with pain on palpation, TA, T1, T2, T3, T4, T5, T6, T7, T8, T9
== END 2024-12-16 12:27 | disposition home or self-care (01) ==
PROVIDERS: PCP Family Medicine; Visit Provider Physician Assistant Medical
DX: K12.0 Recurrent oral aphthae (principal)

== ENCOUNTER → 2024-12-16 10:52 | Outpatient (BNVA) | payer MEDICARE, SELFPAY | PROVIDERS: PCP Family Medicine; Visit Provider Physician Assistant Medical | DX: K12.0 Recurrent oral aphthae (principal) | CPT/HCPCS: 99212 ==

== ENCOUNTER → 2025-02-24 14:15 | Outpatient (BNV) | payer MEDICARE, SELFPAY ==
--- NOTE | 2025-02-24 14:16 | A.OFFVIS_ITS ---
Intake Visit Reasons: Amb Documentation Allergies codeine [CODEINE] Allergy (Intermediate, Verified 02/24/25 13:57) loopy feeling hydrocodone Allergy (Intermediate, Verified 02/24/25 13:57) Vomiting pseudoephedrine [PSEUDOEPHEDRINE] Allergy (Intermediate, Verified 02/24/25 13:57) HEART PALPITATIONS adhesive tape Allergy (Unknown, Verified 02/24/25 13:57) Rash Penicillins [PENICILLINS] Adverse Reaction (Intermediate, Verified 02/24/25 13:57) C-DIFF diarrhea HPI HPI Amb Documentation: Details: Assessment & Plan (1) GERD (gastroesophageal reflux disease): Code(s): K21.9 - Gastro-esophageal reflux disease without esophagitis Category: Medical (2) Bile salt-induced diarrhea: Code(s): K90.89 - Other intestinal malabsorption Category: Medical (3) Dysphagia: Code(s): R13.10 - Dysphagia, unspecified Category: Medical Plan He continues on Carafate and pantoprazole twice a day. He uses the carafate prn and I encourage him to take some with him in his pocket to avoid mishaps (he carries metoprolol anyway). We review the test results and so far it appears that the dysphagia is largely neurologic, as at times he has trouble initiating the swallow. This happens with both solids and liquids. ROV 6 mos. Orders: Referrals Gastroenterology Referral R13.10 - Dysphagia, unspecified Medications: New sucralfate 1 g PO BID 60 tabs 6RF K90.89 - Other intestinal malabsorption Refilled pantoprazole 40 mg PO BID 180 tabs 6RF K21.9 - Gastro-esophageal reflux disease without esophagitis, K31.9 - Disease of stomach and duodenum, unspecified TODAYS VISIT HE continues to do well on his pantorpazole and his sucralfate. He remains satisfied on his GI regimen. ROV 1 year [facility] Medical History (Updated 02/24/25 @ 14:17 by MARIELA Zendejas) Tubulovillous adenoma of colon Annual physical exam Dysphagia Pre-op examination HTN (hypertension) Afib History of cardioversion Persistent atrial fibrillation Oral bleeding History of COVID-19 Cellulitis of face History of ETOH abuse Hepatic steatosis Schatzki's ring Gastropathy GERD (gastroesophageal reflux disease) Arthritis Cirrhosis Diarrhea Surgical History Hx of cholecystectomy Hx of eye surgery History of esophagogastroduodenoscopy (EGD) Hx of colonoscopy History of back surgery Family History Father Lung cancer Mother Thyroid condition HTN (hypertension) Lung cancer CVD (cardiovascular disease) Sister Breast cancer Son Pulmonary embolism Blood clot in vein Social History Household Members: Spouse Household Members Other:: adult children and grandchildren. Housing: House Do you presently have visiting nurse or other home services: No Alcohol intake: never Patient Tobacco Use Status: Never used Tobacco e-Cigarette/Vaping Use: Never Used Second Hand Smoke Exposure: No service: No Current occupational status: retired Cognitive needs: No Hearing needs: No Vision needs: No Review of Systems Const Denies fatigue, Denies fever(s), Denies night sweats, Denies poor appetite and Denies weight loss ENT Reports Normal hearing present, Denies dental pain, Denies dysphagia, Denies hearing loss, Denies mouth pain, Denies odynophagia, Denies throat swelling, Denies tongue swelling and Reports other (Dentition adequate) Card Reports no additional complaints Resp Reports no additional complaints GI Details: Denies abdominal pain, Denies melena, Denies bloating, Denies hematochezia, Denies constipation, Denies GI cramping, Denies dysphagia, Denies excessive flatus, Denies early satiety, Reports heartburn, Reports diarrhea, Denies nausea, Denies odynophagia, Denies vomiting and Denies hematemesis Skin/Breast Denies pruritus, Denies lesions, Denies rash and Denies jaundice Neuro Reports Normal hearing present and Denies Abnormal speech present Endo Denies fatigue Aller/Immun Denies throat swelling and Denies tongue swelling Physical Exam Const General: cooperative, no acute distress, well developed and well groomed Nutritional Appearance: well nourished and obese morbidly obese Orientation/consciousness: oriented to person, oriented to place and oriented to time Limitations: No language barrier HEENT Head: Yes normocephalic and Yes atraumatic Eyes General: appearance normal, both eyes and all related structures Pupils: Equal, round and reactive pupils present Neck Neck: Yes normal visual inspection and Yes no lymphadenopathy Thyroid: Thyroid normal Resp Effort & Inspection: normal respiratory effort and able to speak in complete sentences Auscultation: clear to auscultation bilaterally Cardio Rate: regular rate Rhythm: regular rhythm Heart sounds: Normal, physiologic split S2 sound present Peripheral pulses: radial pulses present and posterior tibial pulses present GI Inspection: No distended, No Abdominal panniculus present and Yes obesity Palpation (GI): Soft to palpation, nontender, no guarding, not rigid and No hepatosplenomegaly present Percussion: Yes normal to percussion Auscultation: normal bowel sounds Rectal Exam - Male: Yes deferred Skin General skin exam: no rashes or lesions noted, turgor normal, skin not dry, no jaundice, No spider nevi and no striae Rashes: no rashes Nails: normal Neuro General: oriented to person, oriented to place and oriented to time Cranial nerves: Yes Equal, round and reactive pupils present and Yes Normal hearing present Speech: No Abnormal speech present Extrem General: Yes normal to inspection, No clubbing, No cyanosis and No edema Psych Appearance: grossly normal and well kempt Mental Status: mental status grossly normal Speech and movement: Normal speech and movement present Affect: normal affect Attitude: cooperative Thought process: Normal thought process present and not confabulating Thought content: Normal thought content present Insight: Good insight present (Psych) Judgement: Good judgement present (Psych) Assessment & Plan Assessment & Plan (1) GERD (gastroesophageal reflux disease): Comment: EGD 01/2024, Schatzki ring status post balloon dilation, maintained on PPI and Carafate Code(s): K21.9 - Gastro-esophageal reflux disease without esophagitis Category: Medical (2) Bile salt-induced diarrhea: Code(s): K90.89 - Other intestinal malabsorption Category: Medical Plan HE continues to do well on his pantorpazole and his sucralfate. He remains satisfied on his GI regimen. ROV 1 year Medications: Refilled sucralfate 1 g PO BID 60 tabs 6RF K90.89 - Other intestinal malabsorption pantoprazole 40 mg PO BID 180 tabs 12RF K21.9 - Gastro-esophageal reflux disease without esophagitis, K31.9 - Disease of stomach and duodenum, unspecified pantoprazole 40 mg PO BID 180 tabs 6RF K21.9 - Gastro-esophageal reflux disease without esophagitis, K31.9 - Disease of stomach and duodenum, unspecified sucralfate 1 g PO BID 60 tabs 12RF K90.89 - Other intestinal malabsorption Coding Level of Care Code Est Pt Level 3 (17568) Diagnoses GERD (gastroesophageal reflux disease) K21.9 Bile salt-induced diarrhea K90.89
== END ==
PROVIDERS: PCP Internal Medicine; Visit Provider Nurse Practitioner
DX: K21.9 Gastro-esophageal reflux disease without esophagitis (principal); K90.89 Other intestinal malabsorption
CPT/HCPCS: 99212; 99213

== ENCOUNTER 2025-03-21 08:00 | Outpatient (RCR) | payer MEDICARE, SELFPAY ==
--- NOTE | 2025-02-08 08:02 | MHC.PT.EP ---
[facility] [place] [facility] [place] [facility] [place] [facility] [address] Eloy Miller [address] [phone] F: [phone] F: [phone] F: [phone] F: [phone] Physical Therapy Plan of Care Date of Evaluation: 02/08/25 Date of Surgery: Diagnosis: dorsalgia Assessment: Patient is a 69 year old R handed male who presents with s/s consistent with dorsalgia, low back pain. He is retired but does enjoy staying active at home and in the community. Patient past medical history includes Afib, HTN, cardioversion, ETOH and cirrhosis. Current impairments include pain, posture, flexibility, ROM, strength, activity tolerance and functional mobility. Functional limitations include decreased ability to walk, stand, transfer, lift, carry, bend and squat. Patient is motivated with good rehab potential. Skilled PT will address impairments and functional limitations in order to achieve goals. Frequency and Duration: The patient will be seen 2x/week for 5 weeks Short Term Goals: I with HEP - 2 weeks 90/90 lacking 30 or less - 3 weeks Min tight b/l gastroc - 3 weeks Ep Specialist Goals: AROM rotation 75% and pain free - 5 weeks Oswestry 30% or less - 5 weeks Able to walk/stand > 30 minutes without increased pain - 5 weeks Max pain with daily routine /10 - 5 weeks Treatment Plan: Modalities to reduce pain, spasms and effusion. Manual therapy to restore motion and function. Therapeutic exercise to improve strength and flexibility. Neuromuscular re-education for posture and balance. Therapeutic activities to return to functional activities of daily living. Electronically signed by: Domenico Ojeda, PT Please sign and return to therapist. Thank you for your referral.
--- NOTE | 2025-03-24 08:07 | MHC.PT.DC ---
[facility] [place] Office [place] Office [place] Office [address] Eloy Miller [address] [phone] F: [phone] F: [phone] F: [phone] F: [phone] Physical Therapy Discharge Report Diagnosis: dorsalgia Date of Surgery: Date of Evaluation: 02/08/25 Date of Discharge: Treatments to Date: 8 Cancellations to Date: No Shows to Date: Discharge Status: Improved Function Independent with HEP Discharge Summary: 03/21/25: pt I with HEP. progressed towards or met STG and LTG. He has been motivated and compliant throughout and is confident he will be able to keep up well with HEP. 03/08/25: pt with similar tightness in lumbar spine and b/l piriformis. pt has modified wallet placement but does need cued for therex and HEP performance. 03/07; Pt c/o soreness from exs. Pt likes MH. Pt TTP QL's with STM. Pt limited with L/S ext. 03/01/25: pt progressing with s/s. added manual for piriformis tightness and educated on wallet remove/relocation. 02/27/25: pt progressing well with skilled PT. no adverse reactions. improving carryover and I with HEP. continue to progress as tolerated. 02/22; Pt fatigued after hip exs. Pt not doing exs at home and discussed importance of HEP. NV balance ex 02/20/25: continue to progress as tolerated with skilled PT. increased stretching intervention. no adverse reactions. 02/15; Pt L/S ext limited, HS tight. Pt fatigued after hip strengthening. Patient is a 69 year old R handed male who presents with s/s consistent with dorsalgia, low back pain. He is retired but does enjoy staying active at home and in the community. Patient past medical history includes Afib, HTN, cardioversion, ETOH and cirrhosis. Current impairments include pain, posture, flexibility, ROM, strength, activity tolerance and functional mobility. Functional limitations include decreased ability to walk, stand, transfer, lift, carry, bend and squat. Patient is motivated with good rehab potential. Skilled PT will address impairments and functional limitations in order to achieve goals. Electronically signed by: Domenico Ojeda PT Please sign and return to therapist. Thank you for your referral.
== END 2025-03-24 08:07 | disposition home or self-care (01) ==
LOC: HO.PTCHIC 08:00
PROVIDERS: PCP Internal Medicine; Visit Provider Internal Medicine
DX: M54.9 Dorsalgia, unspecified (principal)
CPT/HCPCS: 97110; 97140; 97162

== ENCOUNTER 2025-05-22 07:58 | Outpatient (REF) | payer MEDICARE, SELFPAY ==
--- OUTSIDE RECORDS SUMMARY | 2024-12-13 05:30 | XMS_ITS ---
Author Organization [facility] Address [address] [place] [phone] Care Team Providers Care Data Mining Analyst Name Role Phone Ted Thomas Primary Care Provider UnavailJulio Marshall [phone] Encounters Encounter Location Date Provider Diagnosis [address] [address] 12/13/2024 Julio Pulliam Plan Of Treatment No Information Progress Notes * Justice BONILLA ADOB: [birth year] (69 yo M)Acc No.[id number]:12/13/2024 Progress Note Patient: Justice BRADLEY Provider: Hiral Pulliam DPM :1955 A ge:69 Y S ex:Male Date:12/13/2024 Address:[address] [place] [phone] Pcp:Ted Thomas Subjective: * Chief Complaints: * * Medical History: Objective: * Vitals: Assessment: Plan: * Treatment: * Images: * The named appointment provid er may or may not be the originator of this progress note, and it is not deemed complete until electronically signed by the appointment provider. Sign off status: Pending * Provider: Hiral Pulliam DPM Date: 0 12/13/2024 Generated for Printi ng/Faxing/eTransmitting on: 0 05/22/2025 08:03 AM EDT
--- OUTSIDE RECORDS SUMMARY | 2025-04-14 09:45 | XMS_ITS ---
Author Organization [facility] Address [address] [place] [address] Care Team Providers Care Mounter Smoking Pipe Name Role Phone Ted Thomas Primary Care Provider UnavailJulio Marshall [phone] REASON FOR VISIT seen sooner Encounters Encounter Location Date Provider Diagnosis [address] [address] 04/14/2025 Julio Pulliam Plan Of Treatment No Information Progress Notes * Justice BONILLA ADOB: [birth year] (69 yo M)Acc No.[id number]:04/14/2025 Progress Note Patient: Justice BRADLEY Provider: Hiral Pulliam DPM :1955 A ge:69 Y S ex:Male Date:04/14/2025 Address:[address] [place] [phone] Pcp:Ted Thomas Subjective: * Chief Complaints: * 1 . Seen sooner. * Medical History: Objective: * Vitals: Assessment: Plan: * Treatment: * Images: * The named appointment provid er may or may not be the originator of this progress note, and it is not deemed complete until electronically signed by the appointment provider. Sign off status: Pending * Provider: Hiral Pulliam DPM Date: 04/14/2025 Generated for Caryli zeinab/Abdirizak/eTransmitting on: 05/22/2025 08:03 AM EDT
--- OUTSIDE RECORDS SUMMARY | 2025-05-08 10:30 | XMS_ITS ---
Author Organization [facility] Address [address] [place] [address] Care Team Providers Care Senior Sharepoint Developer Name Role Phone Ted Thomas Primary Care Provider UnavailJulio Marshall Unavailable [phone] Encounters Encounter Location Date [facility] [address] 05/08/2025 Julio Pulliam Plan Of Treatment No Information Progress Notes * Justice BONILLA ADOB: [birth year] (69 yo M)Acc No.[id number]:05/08/2025 Progress Note Patient: Justice BRADLEY Provider: Pancho Pulliam DPM :1955 A ge:69 Y S ex:Male Date:05/08/2025 Address:[address] [place] [address] [place], [phone] Pcp:Ted Thomas Subjective: * Chief Complaints: * * Medical History: Objective: * Vitals: Assessment: Plan: * Treatment: * Images: * The named appointment provid er may or may not be the originator of this progress note, and it is not deemed complete until electronically signed by the appointment provider. Sign off status: Pending * Provider: Pancho Pulliam DPM Date: 05/08/2025 Generated for Printi ng/Faxing/eTransmitting on: 05/22/2025 08:03 AM EDT
--- OUTSIDE RECORDS SUMMARY | 2025-05-22 08:03 | XMS_ITS | Patient Health Record ---
Author Organization [facility] Address [address] [place] [address] Care Team Providers Care Guard Dance Hall Name Role Phone Ted Jauregui Unavailable [phone] Reason For Referral No Information Plan Of Treatment No Information
--- OUTSIDE RECORDS SUMMARY | 2025-05-22 08:03 | XMS_ITS | Patient Health Record ---
Author Organization [facility] Tristan [facility] Address [address] [place] [address] Care Team Providers Care Production Control Pegboard Clerk Name Role Phone Ted Thomas Primary Care Provider Julio aCm Unavailable [phone] Allergies Allergen (clinical drug ingredient) Drug/Non Drug Allergy documented on EMR Reaction Allergy Type Onset Date Status amoxicillin Amoxicillin Unknown Drug Allergy Act le Adhesive Unknown Allergy Active codeine Codeine dizzy Drug Allergy Active Reason For Referral No Information Medications Medication SIG (Take, Route, Frequency, Duration) Notes Start Date End Date Status Night Splint AFO - L1930 as directed 02/20/2025 Active Fish Oil Active Lisinopril 20 MG 1 tablet Orally Once a day 07/13/2017 Active Pantoprazole Sodium Active Sucralfate-Malate PRN Ac tive Tadalafil Active Amiodarone HCl 200 MG 1 tablet Orally On ce a day; Duration: 30 day(s) Active Omeprazole 40 MG 1 capsule Orally Onc e a day 07/13/2017 Active Flecainide Acetate 50 MG as directed Orally Active Econazole Nitrate 1 % External; Duration: 30 Active Multivitamin Active Metoprolol & Diet Manage Prod Not-Taking amLODIPine Besylate 10 MG 1 tablet Orall y Once a day Active Ciclopirox Olamine 0.77 % 1 application to affected area Externally Twice a day; Duration: 30 days Active Eliquis 5 MG TAKE 1 TABLET BY RUBÉN TH TWICE A DAY Oral; Duration: 30 Days Active Immunizations Vaccine Route Administration Date Status Comme nts Influenza Unknown 06/25/2021 Administered COVID-19 Pfizer BioNTech Vaccine Unknown 07/09/2021 Administered 1st 11/06/2020 2nd 11/18/2020 Social History Tobacco Use: Social History Observation Description Date Details (start date - stop date) Never Smoker NA - NA Tobacco use other than smoking: Question Answer Notes Are you an other tobacco user? No Tobacco Control (Standard) Question Answer Notes Tobacco use: Nonsmoker Additional Findings: Tobacco non-user Current no nsmoker AUDIT-C (Standard) Question Answer Notes Did you have a drink containing alcohol in the p ast year? 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 Vital Signs Heart Rate 62 /min 02/10/2025 Blood pressure diastolic 71 mm Hg 02/10/2025 Height 5ft 11in in 02/10/2025 Blood pressure systolic 116 mm Hg 02/10/2025 Weight 230 lbs 02/10/2025 BMI 32.07 kg/m2 02/10/2025 Procedures Procedure Date Ordered Date Performed Result Body Sit e 56406-TEIMUDM NAIL, 6 OR MORE 06/14/2024 N/A 60824-DYUZLEZ NAIL, 6 OR MORE 09/20/2024 N/A 31511-BHBELVM NAIL, 6 OR MORE 02/10/2025 N/A Encounters Encounter Location Date Provider Diagnosis [facility] [address] 06/14/2024 Julio Shasha Onychomycosis B35.1 ; Pain in right toe(s) M79.674 and Pain in left toe(s) M79.[address] [address] 09/20/2024 Julio Shasha Onychomycosis B35.1 ; Pain in right toe(s) M79.674 and Pain in left toe(s) M79.[address] [address] 02/10/2025 Juliocortez SmithShasha Onychomycosis B35.1 ; Pain in right toe(s) M79.674 ; Pain in left toe(s) M79.675 ; Pain in left foot M79.672 ; Plantar fasciitis of left foot M72.2 ; Calcaneal spur, left foot M77.32 ; Interstitial myositis of left foot M60.172 and Bursitis of left foot M77.52 [facility] [address] [address] 05/03/[facility] [address] [address] 12/12/2024 Julio Pulliam [facility] [address] [address] 02/10/2025 Julio Shasha [address] [address] 02/15/2025 Julio Pulliam Plantar fasciitis, left M72.2 Assessments Encounter Date Diagnosis (ICD Code) Assessment Notes Treatment Notes Treatment Clinical Notes Section Notes 06/14/2024 Pain in right toe(s) (ICD-10 - M79.674) 06/14/2024 Onychomycosis (ICD-10 - B35.1) 09/20/2024 Pain in right toe(s) (ICD-10 - M79.674) 09/20/2024 Onychomycosis (ICD-10 - B35.1) 02/10/2025 Pain in right toe(s) (ICD-10 - M79.674) 02/10/2025 Onychomycosis (ICD-10 - B35.1) 02/15/2025 Plantar fasciitis, left (ICD-10 - M72.2) 02/10/2025 Pain in left toe(s) (ICD-10 - M79.675) 09/20/2024 Pain in left toe(s) (ICD-10 - M79.675) 06/14/2024 Pain in left toe(s) (ICD-10 - M79.675) 02/10/2025 Pain in left foot (ICD-10 - M79.672) 02/10/2025 Plantar fasciitis of left foot (ICD-10 - M72.2) Patient Educated with: HEEL CORD STRETCHES.pdf (HEEL CORD STRETCHES.pdf) Patient Educated with: RICE THERAPY.pdf (RICE THERAPY.pdf) 02/10/2025 Calcaneal spur, left foot (ICD-10 - M77.32) 02/10/2025 Interstitial myositis of left foot (ICD-10 - M60.172) 02/10/2025 Bursitis of left foot (ICD-10 - M77.52) Plan Of Treatment Pending Test Test Name Order Date X ray : Foot, left 3V 02/10/2025 87706-ZQDBSSG NAIL, 6 OR MORE 06/14/2024 80894-JAPYVSM NAIL, 6 OR MORE 09/20/2024 26320-JCVOHOT NAIL, 6 OR MORE 02/10/2025 27728-KNYNDLZ NAIL, 6 OR MORE 01/12/2024 42718-NSBBKKU NAIL, 6 OR MORE 03/22/2024 33279-OAPFYPV NAIL, 6 OR MORE 07/13/2017 77648-NVEZLXM NAIL, 6 OR MORE 10/13/2017 31865-JQKVPCS NAIL, 6 OR MORE 01/12/2018 29378-KTEPCKT NAIL, 6 OR MORE 11/05/2018 54117-EQJRSUD NAIL, 6 OR MORE 02/04/2019 44675-WGAQENH NAIL, 6 OR MORE 06/17/2019 32630-ZXXWHYF NAIL, 6 OR MORE 09/27/2019 43530-WUYIKKM NAIL, 6 OR MORE 01/20/2020 18296-CGAEEIN NAIL, 6 OR MORE 04/27/2020 13221-GHGAFOJ NAIL, 6 OR MORE 07/27/2020 53522-SCAFKER NAIL, 6 OR MORE 11/02/2020 04713-JGTHNXZ NAIL, 6 OR MORE 05/29/2021 09834-JUQWBHZ NAIL, 6 OR MORE 08/27/2021 23224-TZRURPN NAIL, 6 OR MORE 06/17/2022 74671-QIGCJJS NAIL, 6 OR MORE 03/06/2023 32226-WOGOEQZ NAIL, 6 OR MORE 06/12/2023 03292-NEXYISF NAIL, 6 OR MORE 08/21/2023 06940-FNQGXAY NAIL, 6 OR MORE 11/03/2023 84812-Sxtenmol Plate 11/03/2023 02393-Sblpmjec Plate 03/22/2024 06057-Npuyqzxh Plate 01/12/2024 Insurance Providers Payer Name Payer Address Payer Phone Subscriber Number Group Number Insured Name Patient Relationship to Insured Coverage Start Date Coverage End Date [employer] [address] [place] [phone] [id number] Justice Bonilla Self - patient is the insured 4 Medical (General) History Medical History History ICD Code Anxiety disorder Arthritis Back,Hip,and Knee pain Broken bones Hypertension Reflux ( GERD) Chicken pox A - Fib Surgical History Surgery Date(Month/Year) back surgery 1982 gall bladder 2015 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
--- OUTSIDE RECORDS SUMMARY | 2025-05-22 08:03 | XMS_ITS | Clinical Summary ---
Author Organization [facility] Address [address] [place] [id number] Phone Care Team Providers Care Turning Sander Tender Name Role Phone Ted Thomas DO Primary Care Provider [phone] Allergies Active Allergy Reactions Criticality Noted Date Comments Adhesive Rash Low 04/22/2023 Amoxicillin GI Upset 04/22/2023 Codeine Dizziness 04/22/2023 Hydrocodone-Acetaminophen 04/22/2023 Penicillin 04/22/2023 Polymycin 07/24/2023 Pseudoephedrine Hcl 04/22/2023 Medications lisinopril (PRINIVIL,ZESTRIL ) 20 MG tablet Take 1 tablet by mouth 2 (two) times a day. 3 Active metoprolol succinate (TOPROL-XL) 100 MG 24 hr tablet Take 50 mg by mouth 2 (two) times a day. 3 Active amLODIPine (NORVASC) 5 MG tablet Take 5 mg by mouth daily. 3 Active pantoprazole (PROTONIX) 40 MG tablet Take 40 mg by mouth 2 (two) times a day. 3 Active tadalafiL (CIALIS) 5 MG tablet Take 5 mg by mouth daily as needed. 3 Active multivitamins-min erals-folic bshc-uyjncbw-joif in (COMPLETE SENIOR) 0.4 mg-300 mcg- 250 mcg Tab Take 1 tablet by mouth daily. Active omega 8-imw-oqu-fish oil 1,000 mg (120 mg-180 mg) Cap Take 1 capsule by mouth daily. Active sucralfate (CARAFATE) 1 gram tablet Take 1 g by mouth as needed. Active econazole nitrate 1 % cream PLEASE SEE ATTACHED FOR DETAILED DIRECTIONS Active nystatin (NYSTOP) powder APPLY DAILY TO AFFECTED AREAS OF THE GROIN. 4 Active cetirizine (ZYRTEC) 10 MG tablet TAKE 1 TABLET BY MOUTH DAILY FOR ALLERGIES 4 Active CEQUA 0.09 % suspension Place 1 drop into each eye 2 (two) times a day. 4 Active ELIQUIS 5 mg tabletIndications :Persistent atrial fibrillation Take 1 tablet (5 mg total) by mouth 2 (two) times a day. 180 tablet 3 5 Active dronedarone (MULTAQ) 400 mg tabletIndications :Persistent atrial fibrillation Take 1 tablet (400 mg total) by mouth 2 (two) times a day with meals. 60 tablet 4 5 Active Active Problems Problem Noted Date Diagnosed Date Chronic anticoagulation 04/23/2023 Assessment & Plan (10/13/2024 10:59 AM EST): Tolerating Eliquis. Continue without change. Assessment & Plan (04/23/2023 1:45 PM EDT): In view of Theresa sosa counseled the patient to be compliant with his Eliquis. Esophageal anatomy will be further defined on the CT scan. Persistent atrial fibrillation 04/22/2023 Assessment & Plan (10/13/2024 11:00 AM EST): No symptomatic recurrence following ablation in 2022. Prior to ablation, when he had episodes of atrial fibrillation, he would experience chest discomfort and could feel his heart racing. He will continue Multaq at current doses. He had numerous questions regarding weight loss and exercise regimens. I have encouraged him to return to the gym to resume his cardio and weight lifting programs. He is following with a apparel pattern maker. Assessment & Plan (04/23/2023 7:55 AM EDT): We had a detailed discussion with the patient with regards to rate control versus rhythm control strategies. Patient at this point wants to pursue rhythm control strategy with ablation. Continue amiodarone. Will request for ablation procedure. If there is delay in ablation procedure we will request for cardioversion on amiodarone. Encounters Date Type Department Care Team Description 05/10/2025 Telephone [facility] [address], [address] [place] [address] Marcial Alva MD 02/27/2025 Telephone [facility] [address], [address] [place] [address] Nerissa Sandhu DNP from Last 3 Months Family History Medical History Relation Comments Emphysema Father Lung cancer Father No Known Problems Mother Relation Status Comments Father Mother Social History Tobacco Use Types Packs/Day Years Used Date Smoking Tobacco: Never Smokeless Tobacco: Never Tobacco Cessation:Counseling Given: Not Answered Education Answer Date Recorded Are you interested in more education? Not on mora e 04/15/2023 Are you concerned about learning? Not on file 04/15/2023 No 04/15/2023 No 04/15/2023 Digital Access Answer Date Recorded No 04/15/2023 No 04/15/2023 Reliable internet access at home? Not on file 04/15/2023 Device with a working camera? Not on file Sex and Gender Information Value Date Recorded Sex Assigned at Not on file Legal Sex Male 1:32 PM EDT Gender Identity Not on file Sexual Orientation Not on file Last Filed Vital Signs Vital Sign Reading Time Taken Comments Blood Pressure 138/72 10/13/2024 10:18 AM EST Pulse 61 10/13/2024 10:18 AM EST Temperature - - Respiratory Rate - - Oxygen Saturation 97% 10/13/2024 10:18 AM EST Inhaled Oxygen Concentration - - Weight 106.6 kg (235 lb) 10/13/2024 10:18 AM EST Height 180.8 cm (5' 11.18 ) 10/13/2024 10:18 AM EST Body Mass Index 32.61 10/13/2024 10:18 AM EST Plan of Treatment Upcoming Encounters Date Type Department Care Team (Late st Contact Info) Description 10/10/2025 11:00 AM EST Office Visit [facility] [address], [address] [place] [address] Marcial Alva MD [address] [place] [phone] Health Maintenance Due Date Last Done Comments CREATININE LEVEL 1954 LIPID PANEL 1954 POTASSIUM LEVEL 1954 DEPRESSION SCREENING 1966 HEPATITIS C SCREENING 1972 COLOGUARD 1999 COLONOSCOPY 1999 COLORECTAL CANCER SCREENING 1999 FIT TEST 1999 FOBT 1999 SIGMOIDOSCOPY 1999 VIRTUAL COLONOSCOPY 1999 ZOSTER VACCINES (3 of 3) 02/18/2022 12/24/2021, 08/14 PNEUMOCOCCAL VACCINES (50+ years) (2 of 2 - PCV) 12/30/2022 12/30/2021, 08/02/2015 INFLUENZA VACCINE (#1) 2025 2, 05/30/2021, 07/19/2020, Additional history exists COVID-19 VACCINE ( - 2023- season) 2025 Adult Td,Tdap Booster 07/30/2026 07/30/2016 RSV VACCINE (1 - 1-dose 75+ series) 2029 HEPATITIS A VACCINES Aged Out 04/19/2020, 10/06/19 20 No longer eligible based on patient's age to complete this topic SMOKING STATUS SCREENING (Once After 26 Yrs) Completed 10/13/2024 HIB VACCINES Aged Out No longer eligi ble based on patient's age to complete this topic MENINGOCOCCAL VACCINES (ACWY) Aged Out No longer eligible based on patient's age to complete this topic MENINGOCOCCAL VACCINES (B) Aged Out N o longer eligible based on patient's age to complete this topic Medical Devices Not on file Insurance [employer] PPO MEDICARE REPLACEMENT AETNA PPO MEDICARE REPLACEMENT AETNA PPO MEDICARE REPLACEMENT AETNA PPO MEDICARE REPLACEMENT AETNA PPO MEDICARE REPLACEMENT AETNA PPO MEDICARE REPLACEMENT Care Teams Turning Sander Tender Relationship Specialty Start Date End Date Ted Thomas DO [address] [place] [address] [email or web address] PCP - General Family Medicine 02/19/24 Additional Source Comments The information contained in this document represents components of the legal health record. It is not the complete legal health record.[facility]
[2025-05-22 14:03] LABS: MANUAL DIFF FLAG NO
[2025-05-22 14:04] LABS: Hematocrit 48.4 % (42.0-52.0); Hemoglobin 16.2 g/dl (14.0-18.0); Imm Gran Abs Auto 0.02 X10*3/uL (0.00-0.03); Imm Gran Pct Auto 0.3 % (0.0-0.4); Lymphocytes Absolute Auto 2.0 X10*3/uL (1.2-4.9); Mean Corpuscular HGB Conc 33.5 g/dl (31.0-36.0); Mean Corpuscular Hemoglobin 29.2 pg (27.0-33.0); Mean Corpuscular Volume 87.2 fL (80.0-98.0); NRBC Abs Auto 0.000 X10*3/uL (0.0-0.012); NRBC Pct Auto 0.0 /100WBC (0.0-0.2); Platelet Count 239 X10*3/uL (160-400); Red Blood Count 5.55 X10*6/uL (4.60-5.80); White Blood Count 7.4 X10*3/uL (4.8-10.8)
[2025-05-22 14:28] LABS: Alanine Aminotransferase 19 U/L (0-40); Albumin Level 4.1 g/dL (3.5-5.0); Alkaline Phosphatase 67 U/L (39-117); Anion Gap 11 (12-20); Aspartate Amino Transferase 28 U/L (5-37); Blood Urea Nitrogen 9 mg/dL (9-16); Calcium 8.6 mg/dL (8.4-10.2); Carbon Dioxide 27 mmol/L (22-29); Chloride 108 mmol/L (96-108); Cholesterol 119 mg/dL (<200); Estimated Glomerular Filt Rate > 60; HDL Cholesterol 40 mg/dL (>40); Potassium 4.4 mmol/L (3.3-5.1); Sodium 142 mmol/L (135-145); Total Protein 7.2 g/dL (6.5-8.0); Triglycerides 71 mg/dL (<150)
== END 2025-05-22 07:59 | disposition home or self-care (01) ==
LOC: HO.HMGCLDS 07:58
PROVIDERS: PCP Internal Medicine; Visit Provider Internal Medicine
DX: I48.0 Paroxysmal atrial fibrillation (principal); I10 Essential (primary) hypertension
CPT/HCPCS: 36415; 80053; 80061; 84443; 85025

== ENCOUNTER 2025-05-31 13:05 | Outpatient (AMB) | payer OTHER, SELFPAY ==
--- OUTSIDE RECORDS SUMMARY | 2024-12-13 05:30 | XMS_ITS ---
Author Organization [facility] Address [address] [place] [phone] Care Team Providers Care Loading Inspector Name Role Phone Ted Thomas Primary Care Provider UnavailJulio Marshall Unavailable [phone] Encounters Encounter Location Date Provider Diagnosis [address] [address] 12/13/2024 Julio Pulliam Plan Of Treatment Next Appt Details Provider Name:Julio Pulliam , 09/05/2025 03:00:00 PM, [address] [place] [address], [phone], Progress Notes * Justice BONILLA ADOB: [birth year] (69 yo M)Acc No.[id number]:12/13/2024 Progress Note Patient: Justice BRADLEY Provider: Hiral Pulliam DPM :1955 A ge:69 Y S ex:Male Date:12/13/2024 Address:[address] [place] [address] [id number] Pcp:Ted Thomas Subjective: * Chief Complaints: * [...] 0 12/13/2024 Generated for Katty arriola/Abdirizak/Zach on: 0 05/31/2025 04:39 PM EDT
--- OUTSIDE RECORDS SUMMARY | 2025-04-14 09:45 | XMS_ITS ---
Author Organization [facility] Address [address] [place] [address] Care Team Providers Care Log Haul Chain Feeder Name Role Phone Ted Thomas Primary Care Provider UnavailJulio Marshall [phone] REASON FOR VISIT seen sooner Encounters Encounter Location Date Provider Diagnosis [address] [address] 04/14/2025 Julio Pulliam Plan Of Treatment Next Appt Details Provider Name:Julio Pulliam , 09/05/2025 03:00:00 PM, [address] [place] [address], [phone], Progress Notes * Justice BONILLA ADOB: [birth year] (69 yo M)Acc No.[id number]:04/14/2025 Progress Note Patient: Justice BRADLEY Provider: Hiral Pulliam DPM :1955 A ge:69 Y S ex:Male Date:04/14/2025 Address:[address] [place] [phone] Pcp:Ted Thomas Subjective: * Chief Complaints: * [...] 0 04/14/2025 Generated for Katty arriola/Abdirizak/Zach on: 0 05/31/2025 04:39 PM EDT
--- OUTSIDE RECORDS SUMMARY | 2025-05-08 10:30 | XMS_ITS ---
Author Organization [facility] Address [address] [place] [address] Care Team Providers Care Public Health Analyst Name Role Phone Ted Thomas Primary Care Provider UnavailJulio Marshall Unavailable [phone] Encounters Encounter Location Date Provider Diagnosis [address] [address] 05/08/2025 Julio Pulliam Plan Of Treatment Next Appt Details Provider Name:Julio Pulliam , 09/05/2025 03:00:00 PM, [address] [place], [address], Progress Notes * Justice BONILLA ADOB: [birth year] (69 yo M)Acc No.[id number]:05/08/2025 Progress Note Patient: Justice BRADLEY Provider: Hiral Pulliam DPM :1955 A ge:69 Y S ex:Male Date:05/08/2025 Address:[address] [place] [phone] Pcp:Ted Thomas Subjective: * Chief Complaints: * [...] 0 05/08/2025 Generated for Katty arriola/Abdirizak/Zach on: 0 05/31/2025 04:39 PM EDT
[2025-05-31 13:22] VITALS: BP 126/74; PULSE 62; RESP 19; TEMP 36.6; O2SAT 95; BMI 32.8
--- NOTE | 2025-05-31 13:22 | MHC.PC.OV ---
Vital Signs 05/31/25 13:22 Height 6 ft Weight 242 lb BMI 32.8 BP 126/74 Blood Pressure Location Lt brachial Position Sitting Respiration 19 Pulse 62 Pulse Source Pulse Oximeter Temp 97.8 F Temp Source Oral Pulse Oximetry (%) 95 Oxygen Delivery Method Room Air Intake Visit Reasons: Annual PE Intake Note: Pt is here today for PE. Allergies codeine (CODEINE) Allergy (Intermediate, Verified 05/31/25 13:39) loopy feeling hydrocodone Allergy (Intermediate, Verified 05/31/25 13:39) Vomiting pseudoephedrine (PSEUDOEPHEDRINE) Allergy (Intermediate, Verified 05/31/25 13:39) HEART PALPITATIONS adhesive tape Allergy (Unknown, Verified 05/31/25 13:39) Rash Penicillins (PENICILLINS) Adverse Reaction (Intermediate, Verified 05/31/25 13:39) C-DIFF diarrhea Tobacco use date assessed: 05/31/25 Fall risk assessment: 1 Fall in past year Last assessed Fall Risk: 05/31/25 Dental Screening Dental Screen Date: 10/25/24 HPI Annual PE HPI Details Patient presents for physical PFSH Medical History (Updated 05/31/25 @ 14:31 by Clari Duong MD) Annual physical exam Tubulovillous adenoma of colon Dysphagia HTN (hypertension) Afib History of cardioversion History of ETOH abuse Schatzki's ring Gastropathy GERD (gastroesophageal reflux disease) Arthritis Surgical History Hx of cholecystectomy Hx of eye surgery History of esophagogastroduodenoscopy (EGD) Hx of colonoscopy History of back surgery Family History Father Lung cancer Mother Thyroid condition HTN (hypertension) Lung cancer CVD (cardiovascular disease) Sister Breast cancer Son Pulmonary embolism Blood clot in vein Social History Household Members: Spouse Household Members Other:: adult children and grandchildren. Housing: House Do you presently have visiting nurse or other home services: No Alcohol intake: never Patient Tobacco Use Status: Never used Tobacco e-Cigarette/Vaping Use: Never Used Second Hand Smoke Exposure: No service: No Current occupational status: retired Cognitive needs: No Hearing needs: No Vision needs: No Questionnaire PHQ-9 Over the last 2 weeks, how often have you been bothered by any of the following problems? 1. Little interest or pleasure in doing things: not at all 2. Feeling down, depressed, or hopeless: not at all 3. Trouble falling or staying asleep, or sleeping too much: not at all 4. Feeling tired or having little energy: not at all 5. Poor appetite or overeating: not at all 6. Feeling bad about yourself - or that you are a failure or have let yourself or your family down: not at all 7. Trouble concentrating on things, such as reading the newspaper or watching television: not at all 8. Moving or speaking so slowly that other people could have noticed. Or the opposite - being so fidgety or restless that you have been moving around a lot more than usual: not at all 9. Thoughts that you would be better off or of hurting yourself in some way: not at all Total score: 0 Depression Screening Interpretation: Negative Depression Screening Done: Yes 67012 - PHQ-9 Billing: Yes Source: Developed by Drs. Ted Leal, Meg Gao, Lionel Chong and colleagues, with an educational dona from [employer] Thrive Questionnaire Date Thrive assessed: 10/25/24 I am a: Patient What is your living situation today?: I choose not to answer this question Within the past 12 months, did the food you bought not last and you didn't have the money to get more?: I choose not to answer this question Within the past 12 months, did you worry whether your food would run out before you got money to buy more?: I choose not to answer this question Do you have trouble paying for medicines?: No Do you have trouble getting transportation to medical appointments?: Yes Do you have trouble paying your heating and electricity bill?: No Do you have trouble taking care of your child, family member or friend?: No Do you have trouble with day-to-day activities such as bathing, preparing meals, shopping, managing finances, etc.?: No Are you currently unemployed and looking for a job?: No Are you interested in more education?: No Please select the resources that you would like help with: None Currently or been in a relationship where the following occur: No concerns reported THRIVE Score: 1 AUDIT C Alcohol Use Questionnaire (AUDIT-C) 1. How often do you have a drink containing alcohol?: Never Total Score: 0 FREDI-7 AMB Questionnaire FREDI-7 Date FREDI - 7 assessed: 05/31/25 Feeling nervous, anxious, or on edge: 0 = Not at all Not being able to stop or control worryin = Not at all Worrying too much about different things: 0 = Not at all Trouble relaxin = Not at all Being so restless that it is hard to sit still: 0 = Not at all Becoming easily annoyed or irritable: 0 = Not at all Feeling afraid as if something awful might happen: 0 = Not at all Total FREDI-7 score (0-4 normal; 5-9 mild; 10-14 moderate; 15-21 severe): 0 Source: Developed by Drs. Ted Leal, Meg Gao, Lionel Chong and colleagues, with an educational dona from [employer] Review of Systems Const All systems reviewed & are unremarkable except as noted in HPI and below Eyes Reports no additional complaints ENT Reports no additional complaints Card Reports no additional complaints Resp Reports no additional complaints GI Reports no additional complaints Reports no additional complaints Physical exam (Primary Care) Vital Signs: Last Vital Signs Temp 97.8 F 05/31/25 13:22 Pulse 62 05/31/25 13:22 Resp 19 05/31/25 13:22 BP 126/74 05/31/25 13:22 Pulse Ox 95 05/31/25 13:22 Oxygen Delivery Method Room Air 05/31/25 13:22 BMI result Body Mass Index 32.8 Tobacco/Smoking Status: Tobacco use Status Tobacco use date assessed 05/31/25 05/31/25 13:43 Patient Tobacco Use Status Never used Tobacco 05/31/25 13:22 e-Cigarette/Vaping Use Never Used 05/31/25 13:22 PHQ-9: PHQ-9 Score PHQ-9: Total score 0 05/31/25 13:43 Depression Screening Interpretation: Negative Thrive Assessment: Date of Thrive Assessment Date Thrive assessed 10/25/24 05/31/25 13:22 Currently or been in a relationship where the following occur: No concerns reported Const General: no acute distress HENMT Head: Yes normal to inspection Ears: hearing grossly normal bilaterally Mouth: Normal oral and palatal mucosa present Eyes General: appearance normal, both eyes and all related structures Neck Neck: Yes no lymphadenopathy and Yes supple Resp Effort & Inspection: normal respiratory effort Auscultation: clear to auscultation bilaterally Cardio Rhythm: regular rhythm Heart sounds: S1 normal heart sound present and S2 normal heart sound present GI Inspection: Yes normal to inspection Palpation (GI): Soft to palpation Percussion: Yes normal to percussion Auscultation: normal bowel sounds Coding Level of Care Code Est Pt Prev Care >65y(70643) Diagnoses Afib I48.91 Hx of colonoscopy Z98.890 Hypertension I10 Obesity E66.9 GERD (gastroesophageal reflux disease) K21.9 Additional Codes PHQ-9 - 62487 - PHQ-9 Billing: Yes ([id number]) Assessment & Plan Assessment & Plan (1) Afib: Comment: [facility]prior cardioversion [facility], s/p catheter ablation 2023, on Multaq and Eliquis Code(s): I48.91 - Unspecified atrial fibrillation Category: Medical Plan: Patient has been on Multaq and Eliquis despite being normal sinus rhythm sees catheter ablation over a year ago. He will discuss continuing medication with his building inspection engineer during an appointment in July (2) Hx of colonoscopy: Comment: 06/01/2019 w/ EGD Dr. Kan- [facility] & 2020, 02/04/24 Dr. Kan 2 polyps TA, repeat 5 yrs Code(s): Z98.890 - Other specified postprocedural states Category: Surgical Plan: Follow-up with GI (3) Hypertension: Code(s): I10 - Essential (primary) hypertension Category: Medical Plan: Continue current medications (4) Obesity: Code(s): E66.9 - Obesity, unspecified Category: Medical Plan: Decreasing caloric intake increasing physical activity and weight loss discussed with the patient (5) GERD (gastroesophageal reflux disease): Comment: EGD 01/2024, Schatzki ring status post balloon dilation, maintained on PPI and Carafate Code(s): K21.9 - Gastro-esophageal reflux disease without esophagitis Category: Medical Plan: Continue PPI and sucralfate
--- OUTSIDE RECORDS SUMMARY | 2025-05-31 16:39 | XMS_ITS | Patient Health Record ---
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 Vital Signs Heart Rate 62 /min 02/10/2025 Blood pressure diastolic 71 mm Hg 02/10/2025 Height 5ft 11in in 02/10/2025 Blood pressure systolic 116 mm Hg 02/10/2025 Weight 230 lbs 02/10/2025 BMI 32.07 kg/m2 02/10/2025 Procedures Procedure Date Ordered Date Performed Result Body Sit e 15006-QMLJQWF NAIL, 6 OR MORE 06/14/2024 N/A 84489-KLDEBDE NAIL, 6 OR MORE 09/20/2024 N/A 99265-FSQAQNT NAIL, 6 OR MORE 02/10/2025 N/A Encounters Encounter Location Date Provider Diagnosis [facility] [address] 06/14/2024 Julio Shasha Onychomycosis B35.1 ; Pain in right toe(s) M79.674 and Pain in left toe(s) M79.[address] [address] 09/20/2024 Julio Shasha Onychomycosis B35.1 ; Pain in right toe(s) M79.674 and Pain in left toe(s) M79.[address] [address] 02/10/2025 Julio Pulliam Onychomycosis B35.1 ; Pain in right toe(s) M79.674 ; Pain in left toe(s) M79.675 ; Pain in left foot M79.672 ; Plantar fasciitis of left foot M72.2 ; Calcaneal spur, left foot M77.32 ; Interstitial myositis of left foot M60.172 and Bursitis of left foot M77.[address] [facility] [address] 12/12/2024 Julio Pulliam [address] [address] 02/10/2025 Julio Pulliam [address] [address] 02/15/2025 Julio Pulliam Plantar fasciitis, left M72.[address] [address] 05/03/2025 Julio Pulliam Assessments Encounter Date Diagnosis (ICD Code) Assessment Notes Treatment Notes Treatment Clinical Notes Section Notes 06/14/2024 Pain in right toe(s) (ICD-10 - M79.674) 06/14/2024 Onychomycosis (ICD-10 - B35.1) 09/20/2024 Pain in right toe(s) (ICD-10 - M79.674) 09/20/2024 Onychomycosis (ICD-10 - B35.1) 02/10/2025 Pain in right toe(s) (ICD-10 - M79.674) 02/10/2025 Onychomycosis (ICD-10 - B35.1) 02/15/2025 Plantar fasciitis, left (ICD-10 - M72.2) 06/14/2024 Pain in left toe(s) (ICD-10 - M79.675) 02/10/2025 Pain in left toe(s) (ICD-10 - [...] X ray : Foot, left 3V 02/10/2025 14882-HZCUPBY NAIL, 6 OR MORE 06/14/2024 05413-WMTCAUG NAIL, 6 OR MORE 09/20/2024 72884-JLAVBTA NAIL, 6 OR MORE 02/10/2025 94135-CIOBVPN NAIL, 6 OR MORE 01/12/2024 29800-GNVJQFI NAIL, 6 OR MORE 03/22/2024 32508-JPVKDOK NAIL, 6 OR MORE 07/13/2017 04582-BHOYEJO NAIL, 6 OR MORE 10/13/2017 90066-OTPBUGS NAIL, 6 OR MORE 01/12/2018 79896-RUOFDLG NAIL, 6 OR MORE 11/05/2018 13702-QPNZLMH NAIL, 6 OR MORE 02/04/2019 05103-SLDKYTR NAIL, 6 OR MORE 06/17/2019 17295-UTHKHJO NAIL, 6 OR MORE 09/27/2019 86189-XFATIXS NAIL, 6 OR MORE 01/20/2020 51833-JILYTAM NAIL, 6 OR MORE 04/27/2020 52187-NTSRCRM NAIL, 6 OR MORE 07/27/2020 65082-BKVKDFI NAIL, 6 OR MORE 11/02/2020 16100-ERLGVIQ NAIL, 6 OR MORE 05/29/2021 76009-WXCMFQC NAIL, 6 OR MORE 08/27/2021 69580-NIDYOPU NAIL, 6 OR MORE 06/17/2022 36201-FHGGQGJ NAIL, 6 OR MORE 03/06/2023 14511-CNVEWQU NAIL, 6 OR MORE 06/12/2023 60583-IGVMVCU NAIL, 6 OR MORE 08/21/2023 69930-ZOSFPKK NAIL, 6 OR MORE 11/03/2023 00200-Cmwfppyv Plate 11/03/2023 35227-Avobnskj Plate 03/22/2024 35158-Vmsdvzem Plate 01/12/2024 Next Appt Details Provider Name:Julio Pulliam , 09/05/2025 03:00:00 PM, [address] [place], [address], Insurance Providers Payer Name Payer Address Payer Phone Subscriber Number Group Number Insured Name Patient Relationship to Insured Coverage Start Date Coverage End Date Aetna [address] [place] [address] [phone] [id number] Justice Bonilla Self - patient is the [...] ablation Troy arms skin cancer removal 2021 [facility] 04/2023 Cardiac ablation for A - Fib Tooth extraction Hospitalization History Reason Date(Month/Year) Dehydration 05/2020 [facility] A Fib 4- days 11/20[place] [facility] [place] - given Antibiotic 05/16 021
--- OUTSIDE RECORDS SUMMARY | 2025-05-31 16:39 | XMS_ITS | Patient Health Record ---
Author Organization [facility] Address [address] [place] [address] Care Team Providers Care Us Customs And Border Officer Name Role Phone Ted Jauregui Unavailable [phone] Reason For Referral No Information Plan Of Treatment No Information
--- OUTSIDE RECORDS SUMMARY | 2025-05-31 16:39 | XMS_ITS | Clinical Summary ---
Author Organization [facility] Address [address] [facility] [address] [place] [address] Phone Care Team Providers Care Upper Doubler Name Role Phone Ted Thomas DO Primary Care Provider [phone] Allergies Active Allergy Reactions Criticality Noted Date [...] daily as needed. 3 Active multivitamins-min erals-folic jmcc-kfiroeu-hyrx in (COMPLETE SENIOR) 0.4 mg-300 mcg- 250 mcg Tab Take 1 tablet by mouth daily. Active omega 8-obq-wmb-fish oil 1,000 mg (120 mg-180 mg) Cap [...] lifting programs. 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 Assessment & Plan (04/23/2023 7:55 AM EDT): [...] Type Department Care Team Description 05/10/2025 Telephone [facility] [address], [address] [place] [address] Marcial Alva MD from Last 3 Months Family History Medical [...] Description 10/10/2025 11:00 AM EST Office Visit [facility] [address], [address] [place] [address] Marcial Alva MD [address] [place] [phone] [email or web address] Health Maintenance Due Date Last Done Comments [...] 07/19/2020, Additional history exists COVID-19 VACCINE ( season) 2025 Adult Td,Tdap Booster 07/30/2026 07/30/2016 [...] Medical Devices Not on file Insurance AETNA O MEDICARE REPLACEMENT AETNA PPO MEDICARE REPLACEMENT AETNA PPO MEDICARE REPLACEMENT AETNA O MEDICARE REPLACEMENT AETNA PPO MEDICARE REPLACEMENT AETNA PPO MEDICARE REPLACEMENT Care Teams Upper Doubler Relationship Specialty Start Date End Date Ted Thomas DO [address] [place] [phone] [email or web address] PCP - General Family Medicine 02/19/24 Additional Source Comments The information contained in this document represents components of the legal health record. It is not the complete legal health record.[facility]
== END 2025-05-31 14:06 | disposition home or self-care (01) ==
LOC: HO.HMCC 13:06
PROVIDERS: PCP Internal Medicine; Visit Provider Internal Medicine
DX: Z00.00 Encounter for general adult medical examination without abnormal findings (principal); I48.91 Unspecified atrial fibrillation; E66.9 Obesity, unspecified; Z68.32 Body mass index [BMI] 32.0-32.9, adult; Z98.890 Other specified postprocedural states; I10 Essential (primary) hypertension; K21.9 Gastro-esophageal reflux disease without esophagitis

== ENCOUNTER → 2025-05-31 13:05 | Outpatient (BNVA) | payer OTHER, SELFPAY | PROVIDERS: PCP Internal Medicine; Visit Provider Internal Medicine | DX: I10 Essential (primary) hypertension (principal); E66.9 Obesity, unspecified; K21.9 Gastro-esophageal reflux disease without esophagitis; Z68.32 Body mass index [BMI] 32.0-32.9, adult | CPT/HCPCS: 96127 ==

== ENCOUNTER 2025-07-14 09:41 | Outpatient (REF) | payer OTHER, SELFPAY ==
--- OUTSIDE RECORDS SUMMARY | 2025-07-14 14:34 | XMS_ITS | Clinical Summary ---
Author Organization [facility] Address [address] [facility] [address] [place] [address] Phone Care Team Providers Care Batter Depositor Name Role Phone Ted Thomas DO Primary Care Provider [phone] Allergies Active Allergy Reactions Criticality Noted Date [...] daily as needed. 3 Active multivitamins-min erals-folic jxst-ajjqski-yfca in (COMPLETE SENIOR) 0.4 mg-300 mcg- 250 mcg Tab Take 1 tablet by mouth daily. Active omega 1-vax-uiz-fish oil 1,000 mg (120 mg-180 mg) Cap [...] lifting programs. 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 Assessment & Plan (04/23/2023 7:55 AM EDT): [...] Type Department Care Team Description 05/10/2025 Telephone [facility] [address], [address] [place] [address] Marcial Alva MD from Last 3 Months [...] Description 10/10/2025 11:00 AM EST Office Visit [facility] [address], [address] [place] [address] Marcial Alva MD [address] [place] [address] [email or web address] Health Maintenance Due Date Last Done Comments [...] 05/30/2021, 07/19/2020, Additional history exists COVID-19 VACCINE (2024- season) 2025 Adult Td,Tdap Booster 07/30/2026 07/30/2016 [...] REPLACEMENT AET[employer] PPO MEDICARE REPLACEMENT Care Teams Batter Depositor Relationship Specialty Start Date End Date Ted Thomas DO [address] [place] [address] [email or web address] PCP - General Family Medicine 02/19/24 Additional Source Comments The information contained in this document represents components of the legal health record. It is not the complete legal health record.[facility]
[2025-07-14 15:17] LABS: Resp Syncy Virus RNA Qual PCR NEGATIVE (Negative); SARS COV2 PCR INHOUSE NEGATIVE (Negative)
== END 2025-07-14 09:42 | disposition home or self-care (01) ==
LOC: HO.LNP 09:41
PROVIDERS: PCP Internal Medicine; Visit Provider Physician Assistant
DX: J01.10 Acute frontal sinusitis, unspecified (principal); R05.9 Cough, unspecified; R09.89 Other specified symptoms and signs involving the circulatory and respiratory systems
CPT/HCPCS: 87637

== ENCOUNTER 2025-07-14 09:41 | Outpatient (AMB) | payer OTHER, SELFPAY ==
--- OUTSIDE RECORDS SUMMARY | 2024-12-13 05:30 | XMS_ITS ---
Author Organization [facility] Address [address] [place] [phone] Care Team Providers Care Welder Plastic Name Role Phone Ted Thomas Primary Care Provider UnavailJulio Marshall Unavailable [phone] Encounters Encounter Location Date Provider Diagnosis [address] [address] 12/13/2024 Julio Pulliam Plan Of Treatment Next Appt Details Provider Name:Julio Pulliam , 09/05/2025 03:00:00 PM, [address] [place] [address], [phone], Progress Notes * Justice BONILLA ADOB: [birth year] (69 yo M)Acc No.[id number]:12/13/2024 Progress Note Patient: Justice BRADLEY Provider: Hiral Pulliam DPM :1955 A ge:69 Y S ex:Male Date:12/13/2024 Address:[address] [place] [address] [id number] Pcp:Ted Thomas Subjective: * Chief Complaints: * [...] 12/13/2024 Generated for Katty arriola/Abdirizak/Zach on: 1 10:49 AM EDT
--- OUTSIDE RECORDS SUMMARY | 2025-04-14 09:45 | XMS_ITS ---
Author Organization [facility] Address [address] [place] [address] Care Team Providers Care Diesel Fleet Mechanic Name Role Phone Ted Thomas Primary Care Provider UnavailJulio Marshall [phone] REASON FOR VISIT seen sooner Encounters Encounter Location Date Provider Diagnosis [address] [address] 04/14/2025 Julio Pulliam Plan Of Treatment Next Appt Details Provider Name:Julio Pulliam , 09/05/2025 03:00:00 PM, [address] [place] [address], [phone], Progress Notes * Justice BONILLA ADOB: [birth year] (69 yo M)Acc No.[id number]:04/14/2025 Progress Note Patient: Justice BRADLEY Provider: Hiral Pulliam DPM :1955 A ge:69 Y S ex:Male Date:04/14/2025 Address:[address] [place] [phone] Pcp:Ted Thomas Subjective: * Chief Complaints: * [...] 0 04/14/2025 Generated for Katty arriola/Abdirizak/Zach on: 10:49 AM EDT
--- OUTSIDE RECORDS SUMMARY | 2025-05-08 10:30 | XMS_ITS ---
Author Organization [facility] Address [address] [place] [address] Care Team Providers Care Systematic Theology Professor Name Role Phone Ted Thomas Primary Care Provider UnavailJulio Marshall Unavailable [phone] Encounters Encounter Location Date Provider Diagnosis [address] [address] 05/08/2025 Julio Pulliam Plan Of Treatment Next Appt Details Provider Name:Julio Pulliam , 09/05/2025 03:00:00 PM, [address] [place], [address], Progress Notes * Justice BONILLA ADOB: [birth year] (69 yo M)Acc No.[id number]:05/08/2025 Progress Note Patient: Justice BRADLEY Provider: Hiral Pulliam DPM :1955 A ge:69 Y S ex:Male Date:05/08/2025 Address:[address] [place] [phone] Pcp:Ted Thomas Subjective: * Chief Complaints: * [...] 05/08/2025 Generated for Katty arriola/Abdirizak/Zach on: 1 10:49 AM EDT
--- NOTE | 2025-07-14 09:48 | MHC.OFFWIV ---
Intake Vital Signs 07/14/25 09:49 Height 6 ft Weight 242 lb BMI 32.8 BP 110/64 Blood Pressure Location Lt brachial Position Sitting Respiration 18 Pulse 83 Pulse Source Pulse Oximeter Temp 98.4 F Pulse Oximetry (%) 98 Oxygen Delivery Method Room Air Intake Visit Reasons: EP Runny nose, cough, irritated left eye Intake Note: Pt is here today c/o nasal congestion and coughing: Also Lt eye irritated Patient Tobacco Use Status: Never used Tobacco Allergies codeine (CODEINE) Allergy (Intermediate, Verified 07/14/25 09:55) loopy feeling hydrocodone Allergy (Intermediate, Verified 07/14/25 09:55) Vomiting pseudoephedrine (PSEUDOEPHEDRINE) Allergy (Intermediate, Verified 07/14/25 09:55) HEART PALPITATIONS adhesive tape Allergy (Unknown, Verified 07/14/25 09:55) Rash Penicillins (PENICILLINS) Adverse Reaction (Intermediate, Verified 07/14/25 09:55) C-DIFF diarrhea HPI HPI Comments History of Present Illness Details This is a 69-year-old male presenting for evaluation of left-sided sinus pain that has been ongoing for the past 5 days. Patient has a left eye infection for which he saw Ophthalmology yesterday and was prescribed Cipro otic and prednisolone drops. Patient states that he feels warm but denies having any overt fevers or chills. Patient developed a cough last night which is why he came to the walk-in for further evaluation. [facility] Medical History (Updated 07/14/25 @ 10:11 by Meggan Felipe PA-C) Annual physical exam Tubulovillous adenoma of colon Dysphagia HTN (hypertension) Afib History of cardioversion History of ETOH abuse Schatzki's ring Gastropathy GERD (gastroesophageal reflux disease) Arthritis Surgical History Hx of cholecystectomy Hx of eye surgery History of esophagogastroduodenoscopy (EGD) Hx of colonoscopy History of back surgery Family History Father Lung cancer Mother Thyroid condition HTN (hypertension) Lung cancer CVD (cardiovascular disease) Sister Breast cancer Son Pulmonary embolism Blood clot in vein Social History Household Members: Spouse Household Members Other:: adult children and grandchildren. Housing: House Do you presently have visiting nurse or other home services: No Alcohol intake: never Patient Tobacco Use Status: Never used Tobacco e-Cigarette/Vaping Use: Never Used Second Hand Smoke Exposure: No service: No Current occupational status: retired Cognitive needs: No Hearing needs: No Vision needs: No Review of Systems Const All systems reviewed & are unremarkable except as noted in HPI and below Denies body aches, Denies chills, Reports fatigue and Denies fever(s) Eyes Reports as per HPI ENT Reports no additional complaints, Denies otalgia, Reports facial pain and Reports sinus pain (left > right) Card Reports no additional complaints, Denies chest pain and Denies dyspnea Resp Reports chest congestion, Reports cough and Denies dyspnea GI Reports no additional complaints Reports no additional complaints Musc Reports no additional complaints Skin/Breast Reports system reviewed and no additional complaints, except as documented Neuro Reports no additional complaints Psych Reports no additional complaints Endo Reports fatigue Aller/Immun Reports no additional complaints Physical Exam Vital Signs: Last Vital Signs Temp 98.4 F 07/14/25 09:49 Pulse 83 07/14/25 09:49 Resp 18 07/14/25 09:49 BP 110/64 07/14/25 09:49 Pulse Ox 98 07/14/25 09:49 Oxygen Delivery Method Room Air 07/14/25 09:49 BMI result Body Mass Index 32.8 Patient is afebrile. Const General: cooperative, healthy appearing, comfortable, no acute distress, well developed, alert, awake and well groomed; No lethargic Nutritional Appearance: average body habitus Orientation/consciousness: patient oriented x3 and No lethargic Limitations: no limitations HEENT Head: Yes normal to inspection and Yes normocephalic Ears: hearing grossly normal bilaterally, TM's normal bilaterally and EAC's normal General nose exam: Normal external nose present Face and sinus: Yes normal facial exam, Yes face symmetric, No edema and Yes sinus tenderness (left > righit) Mouth: Normal oral and palatal mucosa present, tongue normal, oropharynx normal and moist mucous membranes Throat: Yes posterior oropharynx normal (There is no edema, erythema or exudates of the posterior oropharynx) Eyes General: appearance normal, both eyes and all related structures Neck Lymphatic: no lymphadenopathy noted Resp Effort & Inspection: normal respiratory effort, able to speak in complete sentences and not tachypneic Auscultation: clear to auscultation bilaterally Cardio Rate: regular rate Rhythm: regular rhythm Skin General skin exam: no rashes or lesions noted Neuro General: patient oriented x3 Psych Appearance: grossly normal Mental Status: mental status grossly normal Insight: Good insight present (Psych) Judgement: Good judgement present (Psych) Assessment & Plan Assessment & Plan (1) Acute non-recurrent frontal sinusitis: Comment: Patient is afebrile and well-appearing however he has left-sided sinus pain and reports thereafter that he has minimal dental pain as well. Patient will be treated with antibiotic therapy however a SARS panel will be obtained. Code(s): J01.10 - Acute frontal sinusitis, unspecified Plan: SARS panel is pending at this time. Doxycycline b.i.d. x7 days. Ibuprofen or Tylenol as needed. Orders: Orders SARS-CoV2/FLU/RSV Today R05.9 - Cough, unspecified Medications: New doxycycline hyclate 100 mg PO BID 14 caps 0RF Coding Level of Care Code Est Pt Level 3 (36693) Diagnoses Acute non-recurrent frontal sinusitis J01.10 Time Spent (min) 20
[2025-07-14 09:49] VITALS: BP 110/64; PULSE 83; RESP 18; TEMP 36.9; O2SAT 98; BMI 32.8
--- OUTSIDE RECORDS SUMMARY | 2025-07-14 10:49 | XMS_ITS | Patient Health Record ---
Author Organization [facility] Address [address] [place] [address] Care Team Providers Care Powder Mixer Name Role Phone Ted Thomas Primary Care Provider Julio Cam Unavailable [phone] Allergies Allergen (clinical drug ingredient) Drug/Non Drug [...] Status W/U Status Risk Notes Problem Onychomycosis (674071316) Onychomycosis (B35.1) Active confirmed Problem Plantar fascial fibromatosis (81657161) Plantar fasciitis, left (M72.2) Active confirmed Problem Interstitial myositis (78676994) Interstitial myositis of left foot (M60.172) Active confirmed Vital Signs Heart Rate 62 /min 02/10/2025 Blood pressure diastolic 71 mm Hg 02/10/2025 Height 5ft 11in in 02/10/2025 Blood pressure systolic 116 mm Hg 02/10/2025 Weight 230 lbs 02/10/2025 BMI 32.07 kg/m2 02/10/2025 Procedures Procedure Date Ordered Date Performed Result Body Sit e 80962-WMJAKTS NAIL, 6 OR MORE 09/20/2024 N/A 76137-IGUNIJT NAIL, 6 OR MORE 02/10/2025 N/A Encounters Encounter Location Date Provider Diagnosis [facility] [address] 09/20/2024 Julio Shasha Onychomycosis B35.1 ; Pain in right toe(s) M79.674 and Pain in left toe(s) M79.675 [facility] [address] 02/10/2025 Julio Shasha Onychomycosis B35.1 ; Pain in right toe(s) M79.674 ; Pain in left toe(s) M79.675 ; Pain in left foot M79.672 ; Plantar fasciitis of left foot M72.2 ; Calcaneal spur, left foot M77.32 ; Interstitial myositis of left foot M60.172 and Bursitis of left foot M77.[address] [address] 12/12/2024 Julio Pulliam [address] [address] 02/10/2025 Julio Pulliam [address] [address] 02/15/2025 Julio Pulliam Plantar fasciitis, left M72.[address] [address] 05/03/2025 Julio Pulliam Assessments Encounter Date Diagnosis (ICD Code) Assessment Notes Treatment Notes Treatment Clinical Notes Section Notes 09/20/2024 Pain in right toe(s) (ICD-10 - [...] X ray : Foot, left 3V 02/10/2025 36177-FNFJMMR NAIL, 6 OR MORE 06/14/2024 30660-HZFNQPW NAIL, 6 OR MORE 09/20/2024 13416-KWWUHWQ NAIL, 6 OR MORE 02/10/2025 78887-QBDMOLP NAIL, 6 OR MORE 01/12/2024 14794-APVKCFD NAIL, 6 OR MORE 03/22/2024 20021-GXEHJPW NAIL, 6 OR MORE 07/13/2017 41459-VQMRTMV NAIL, 6 OR MORE 10/13/2017 63037-DPKJQYS NAIL, 6 OR MORE 01/12/2018 78964-EEAIZGF NAIL, 6 OR MORE 11/05/2018 58966-XYPYWRD NAIL, 6 OR MORE 02/04/2019 19486-ETHFREE NAIL, 6 OR MORE 06/17/2019 38624-JJCZZZR NAIL, 6 OR MORE 09/27/2019 79337-WZGHVJL NAIL, 6 OR MORE 01/20/2020 24173-MYHJNOR NAIL, 6 OR MORE 04/27/2020 16986-LOGHCNN NAIL, 6 OR MORE 07/27/2020 15211-XGNUTCK NAIL, 6 OR MORE 11/02/2020 63420-ZDPYJZU NAIL, 6 OR MORE 05/29/2021 29492-CEZKIMG NAIL, 6 OR MORE 08/27/2021 98767-OQHYNJC NAIL, 6 OR MORE 06/17/2022 59229-DSMHAQT NAIL, 6 OR MORE 03/06/2023 94327-EMDLZNC NAIL, 6 OR MORE 06/12/2023 15719-DCVYTCD NAIL, 6 OR MORE 08/21/2023 79154-ZNNUNPP NAIL, 6 OR MORE 11/03/2023 33401-Apotcflu Plate 11/03/2023 62916-Thfzqppi Plate 03/22/2024 66099-Zwfdqajq Plate 01/12/2024 Next Appt Details Provider Name:Julio Pulliam , 09/05/2025 03:00:00 PM, [address] [facility], [place], [address], Insurance Providers Payer Name Payer Address Payer Phone Subscriber Number Group Number Insured Name Patient Relationship to Insured Coverage Start Date Coverage End Date Aetna [address] [place], [place] [phone] [id number] Justice Bonilla Self - patient is the [...] ablation Troy arms skin cancer removal 2021 [facility] 04/2023 Cardiac ablation for A - Fib Tooth extraction Hospitalization History Reason Date(Month/Year) Dehydration 05/2020 [facility] [place] Fib 4- days 11/2022 [facility] [place] Spider Bite - given Antibiotic 05/16 021
--- OUTSIDE RECORDS SUMMARY | 2025-07-14 10:50 | XMS_ITS | Patient Health Record ---
Author Organization [facility] Address [address] [place] [address] Care Team Providers Care Nurse Advisor Name Role Phone Ted Jauregui Unavailable [phone] Reason For Referral No Information Plan Of Treatment No Information
== END 2025-07-14 10:06 | disposition home or self-care (01) ==
PROVIDERS: PCP Internal Medicine; Visit Provider Physician Assistant
DX: J01.10 Acute frontal sinusitis, unspecified (principal)

== ENCOUNTER 2025-07-19 12:24 | Outpatient (AMB) | payer OTHER, SELFPAY ==
--- OUTSIDE RECORDS SUMMARY | 2024-12-13 04:30 | XMS_ITS ---
Author Organization [facility] Address [address] [place] [phone] Care Team Providers Care Instrument Maker And Repairer Name Role Phone Ted Thomas Primary Care Provider UnavailJulio Marshall Unavailable [phone] Encounters Encounter Location Date Provider Diagnosis [address] [address] 12/13/2024 Julio Pulliam Plan Of Treatment Next Appt Details Provider Name:Julio Pulliam , 09/05/2025 03:00:00 PM, [address] [place] [address], [phone], Progress Notes * Justice BONILLA ADOB: [birth year] (69 yo M)Acc No.[id number]:12/13/2024 Progress Note Patient: Justice BRADLEY Provider: Hiral Pulliam DPM :1955 A ge:69 Y S ex:Male Date:12/13/2024 Address:[address] [place] [address] [id number] Pcp:Ted Thomas Subjective: * Chief Complaints: * * Medical History: Objective: * Vitals: Assessment: Plan: * Treatment: * Images: * The named appointment provid er may or may not be the originator of this progress note, and it is not deemed complete until electronically signed by the appointment provider. Sign off status: Pending * Provider: Hiral Pulliam DPM Date: 0 12/13/2024 Generated for Katty arriola/Abdirizak/Zach on: 1 09/18/2024 03:04 PM EST
--- OUTSIDE RECORDS SUMMARY | 2025-04-14 08:45 | XMS_ITS ---
Author Organization [facility] Address [address] [place] [address] Care Team Providers Care Lithographic Photographer Apprentice Name Role Phone Ted Thomas Primary Care Provider UnavailJulio Marshall [phone] REASON FOR VISIT seen sooner Encounters Encounter Location Date Provider Diagnosis [address] [address] 04/14/2025 Julio Pulliam Plan Of Treatment Next Appt Details Provider Name:Julio Pulliam , 09/05/2025 03:00:00 PM, [address] [place] [address], [phone], Progress Notes * Justice BONILLA ADOB: [birth year] (69 yo M)Acc No.[id number]:04/14/2025 Progress Note Patient: Justice BRADLEY Provider: Hiral Pulliam DPM :1955 A ge:69 Y S ex:Male Date:04/14/2025 Address:[address] [place] [phone] Pcp:Ted Thomas Subjective: * Chief Complaints: * 1 . Seen sooner. * Medical History: Objective: * Vitals: Assessment: Plan: * Treatment: * Images: * The named appointment provid er may or may not be the originator of this progress note, and it is not deemed complete until electronically signed by the appointment provider. Sign off status: Pending * Provider: Hiral Pulliam DPM Date: 0 04/14/2025 Generated for Katty arriola/Abdirizak/Zach on: 09/18/2024 03:03 PM EST
--- OUTSIDE RECORDS SUMMARY | 2025-05-08 09:30 | XMS_ITS ---
Author Organization [facility] Address [address] [place] [address] Care Team Providers Care Gas Engine Performance Engineer Name Role Phone Ted Thomas Primary Care Provider UnavailJulio Marshall Unavailable [phone] Encounters Encounter Location Date Provider Diagnosis [address] [address] 05/08/2025 Julio Pulliam Plan Of Treatment Next Appt Details Provider Name:Julio Pulliam , 09/05/2025 03:00:00 PM, [address] [place], [address], Progress Notes * Justice BONILLA ADOB: [birth year] (69 yo M)Acc No.[id number]:05/08/2025 Progress Note Patient: Justice BRADLEY Provider: Hiral Pulliam DPM :1955 A ge:69 Y S ex:Male Date:05/08/2025 Address:[address] [place] [phone] Pcp:Ted Thomas Subjective: * Chief Complaints: * * Medical History: Objective: * Vitals: Assessment: Plan: * Treatment: * Images: * The named appointment provid er may or may not be the originator of this progress note, and it is not deemed complete until electronically signed by the appointment provider. Sign off status: Pending * Provider: Hiral Pulliam DPM Date: 0 05/08/2025 Generated for Katty arriola/Abdirizak/Zach on: 1 09/18/2024 03:04 PM EST
[2025-07-19 12:52] VITALS: BP 134/80; PULSE 74; TEMP 36.8; O2SAT 97; BMI 33.1
--- NOTE | 2025-07-19 12:52 | AM.OFFWIN_ITS ---
Intake Vital Signs 07/19/25 12:52 Height 6 ft Weight 244 lb BMI 33.1 BP 134/80 Blood Pressure Location Lt brachial Position Sitting Pulse 74 Pulse Source Pulse Oximeter Temp 98.2 F Temp Source Oral Pulse Oximetry (%) 97 Oxygen Delivery Method Room Air Intake Visit Reasons: EP Cough, congestion, SOB Intake Note: pt presents with non resolving chest congestion and productive coughing, sinus congestion, hard to catch breath after coughing; has not completed doxycyline tx Patient Tobacco Use Status: Never used Tobacco Allergies codeine (CODEINE) Allergy (Intermediate, Verified 07/19/25 12:54) loopy feeling hydrocodone Allergy (Intermediate, Verified 07/19/25 12:54) Vomiting pseudoephedrine (PSEUDOEPHEDRINE) Allergy (Intermediate, Verified 07/19/25 12:54) HEART PALPITATIONS adhesive tape Allergy (Unknown, Verified 07/19/25 12:54) Rash Penicillins (PENICILLINS) Adverse Reaction (Intermediate, Verified 07/19/25 12:54) C-DIFF diarrhea Do you need a note to return to daycare/school/sports/work: No HPI HPI Comments History of Present Illness Details History - The patient is a 69-year-old male pres enting with respiratory symptoms including dyspnea and sinus congestion. - The patient reports experiencing dyspn ea when coughing, which has been persistent and associated with significant mucus production. - The patient denies any history of smok ing and is unsure about a diagnosis of COPD, although he has been checked for it previously. - The patient was previously tested for flu, COVID-19, and RSV, all of which were negative. - The patient was prescribed doxycycline , he has one day left of medication, which was ineffective so far. - The patient reports using nasal saline for sinus congestion, which has been persistent and causes burning in the throat. Review of Systems - Respiratory: Reports dyspnea and persi stent cough with mucus production. Denies wheezing. - HEENT: Reports sinus congestion and bu rning sensation in the throat. Denies ear pain. All systems reviewed and are unremarkable except as noted in HPI Physical Exam General: Cooperative, healthy appearing, comfortable and no acute distress Orientation/consciousness: Patient oriented x3 Limitations: No limitations Head: Normal to inspection Ears: Hearing grossly normal bilaterally, external ears normal, EAC's normal bilaterally and TM's normal bilaterally Nose: Normal external nose present, Normal nares present and No nasal discharge present Face and sinus: Normal facial exam and maxillary sinuses tender Mouth: Normal oral and palatal mucosa present and moist mucous membranes Throat: tonsils normal, no exudates, uvula midline, posterior oropharynx erythema Eyes: Appearance normal, both eyes and all related structures Neck: Normal visual inspection, full ROM Respiratory: Clear to auscultation bilaterally. Normal respiratory effort, able to speak in complete sentences, actively coughing, no respiratory distress, not tachypneic, no tripod positioning and no use of accessory muscles Cardiovascular: Regular rate and rhythm. Normal S1 and S2 Skin: No rashes or lesions noted Neuro: Patient oriented x3 Extremities: Normal to inspection and Yes no clubbing, cyanosis or edema PFSH Medical History (Updated 07/19/25 @ 13:13 by Karlie Poole PA-C) Annual physical exam Tubulovillous adenoma of colon Dysphagia HTN (hypertension) Afib History of cardioversion History of ETOH abuse Schatzki's ring Gastropathy GERD (gastroesophageal reflux disease) Arthritis Surgical History Hx of cholecystectomy Hx of eye surgery History of esophagogastroduodenoscopy (EGD) Hx of colonoscopy History of back surgery Family History Father Lung cancer Mother Thyroid condition HTN (hypertension) Lung cancer CVD (cardiovascular disease) Sister Breast cancer Son Pulmonary embolism Blood clot in vein Social History Household Members: Spouse Household Members Other:: adult children and grandchildren. Housing: House Do you presently have visiting nurse or other home services: No Alcohol intake: never Patient Tobacco Use Status: Never used Tobacco e-Cigarette/Vaping Use: Never Used Second Hand Smoke Exposure: No service: No Current occupational status: retired Cognitive needs: No Hearing needs: No Vision needs: No Physical Exam Vital Signs: Last Vital Signs Temp 98.2 F 07/19/25 12:52 Pulse 74 07/19/25 12:52 BP 134/80 07/19/25 12:52 Pulse Ox 97 07/19/25 12:52 Oxygen Delivery Method Room Air 07/19/25 12:52 BMI result Body Mass Index 33.1 Assessment & Plan Assessment & Plan (1) Lower respiratory infection (e.g., bronchitis, pneumonia, pneumonitis, pulmonitis): Code(s): J22 - Unspecified acute lower respiratory infection Plan: Plan Patient was informed and verbally consented to the use of an ambient scribe for clinic note documentation during this visit. - VSS, pt well appearing and PE unremarkable. - Continue using Mucinex to aid mucus clearance. - Prescribed a cough suppressant to be taken before bed to improve sleep quality. - Initiated a Solu-Medrol Dosepak (prednisone taper) to reduce inflammation and improve feeling of shortness of breath. - Recommended the use of a neti pot with distilled water for sinus rinsing. - Advised to discontinue doxycycline as it is ineffective for viral infections. Medications: New methylprednisolone PO PER PKG DIR for 6 days 21 ea 0RF benzonatate 200 mg PO BEDTIME PRN 10 caps 0RF cough Coding Level of Care Code Est Pt Level 3 (60412) Diagnoses Lower respiratory infection (e.g., bronchitis, pneumonia, pneumonitis, pulmonitis) J22
--- OUTSIDE RECORDS SUMMARY | 2025-07-19 15:03 | XMS_ITS | Clinical Summary ---
Author Organization [facility] Address [address] [facility] [address] [place] [phone] Phone Care Team Providers Care Instrument Repairer Name Role Phone Ted Thomas DO Primary Care Provider [phone] Allergies Active Allergy Reactions Criticality Noted Date [...] daily as needed. 3 Active multivitamins-min erals-folic depx-dbtwvsm-imyn in (COMPLETE SENIOR) 0.4 mg-300 mcg- 250 mcg Tab Take 1 tablet by mouth daily. Active omega 3-lff-ifn-fish oil 1,000 mg (120 mg-180 mg) Cap [...] lifting programs. He is following with a physician advisor. Assessment & Plan (04/23/2023 7:55 AM EDT): [...] Type Department Care Team Description 05/10/2025 Telephone [facility] [address], [address] [place] [address] Marcial Alva MD from Last 3 Months [...] Description 10/10/2025 11:00 AM EST Office Visit [facility] [address], [address] [place] [address] Marcial Alva MD [address] [place] [id number] [email or web address] Health Maintenance Due Date Last Done Comments [...] on file Insurance [employer] O MEDICARE REPLACEMENT Member Subscriber Plan / Payer (Ef fective 2024-Present) Name:Justice Bonilla Relation to Subscriber:Self Name:Justice Bonilla Payer ID:[id number] (NAIC) Type:Medicare Address: [facility] [id number] [place] [id number] [employer] PPO MEDICARE REPLACEMENT AET[employer] PPO MEDICARE REPLACEMENT AET[employer] O MEDICARE REPLACEMENT A[employer] PPO MEDICARE REPLACEMENT Member Subscriber Plan / Payer (Ef fective 2024-Present) Name:Justice Bonilla Relation to Subscriber:Self Name:Justice Bonilla Payer ID:[id number] (NAIC) Type:Medicare Address: [id number] [place] [id number] [employer] PPO MEDICARE REPLACEMENT Member Subscriber Plan / Payer (Ef fective 2024-Present) Name:Charliemadhu Justice Relation to Subscriber:Self Name:ChadJustice Payer ID:[id number] (NAIC) Type:Medicare Address: [facility] [id number] [place] [address] Care Teams Instrument Repairer Relationship Specialty Start Date End Date Ted Thomas DO [address] [place] [id number] [email or web address] PCP - General Family Medicine 02/19/24 Additional Source Comments The information contained in this document represents components of the legal health record. It is not the complete legal health record.[facility]
--- OUTSIDE RECORDS SUMMARY | 2025-07-19 15:04 | XMS_ITS | Patient Health Record ---
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 Vital Signs Heart Rate 62 /min 02/10/2025 Blood pressure diastolic 71 mm Hg 02/10/2025 Height 5ft 11in in 02/10/2025 Blood pressure systolic 116 mm Hg 02/10/2025 Weight 230 lbs 02/10/2025 BMI 32.07 kg/m2 02/10/2025 Procedures Procedure Date Ordered Date Performed Result Body Sit e 12566-LQCCSIJ NAIL, 6 OR MORE 09/20/2024 N/A 24453-ACAORWH NAIL, 6 OR MORE 02/10/2025 N/A Encounters Encounter Location Date Provider Diagnosis [facility] [address] 09/20/2024 Julio Shasha Onychomycosis B35.1 ; Pain in right toe(s) M79.674 and Pain in left toe(s) M79.[address] [facility] [address] 02/10/2025 Julio Shasha Onychomycosis B35.1 ; Pain in right toe(s) M79.674 ; Pain in left toe(s) M79.675 ; Pain in left foot M79.672 ; Plantar fasciitis of left foot M72.2 ; Calcaneal spur, left foot M77.32 ; Interstitial myositis of left foot M60.172 and Bursitis of left foot M77.[address] [address] 12/12/2024 Julio Pulliam [address] [address] 02/10/2025 Julio Pulliam [address] [address] 02/15/2025 Julio Pulliam Plantar fasciitis, left M72.[address] [address] 05/03/2025 Julio Pulliam Assessments Encounter Date Diagnosis [...] X ray : Foot, left 3V 02/10/2025 99803-URILMBY NAIL, 6 OR MORE 06/14/2024 18827-IWVLAHZ NAIL, 6 OR MORE 09/20/2024 83457-HGOOGMP NAIL, 6 OR MORE 02/10/2025 49297-TOEHTCJ NAIL, 6 OR MORE 01/12/2024 67426-LYYONMF NAIL, 6 OR MORE 03/22/2024 74528-ZKKGUAK NAIL, 6 OR MORE 07/13/2017 84082-OKZKEPK NAIL, 6 OR MORE 10/13/2017 31233-BMHVSTC NAIL, 6 OR MORE 01/12/2018 04349-LTPSEHA NAIL, 6 OR MORE 11/05/2018 56966-HILQPLH NAIL, 6 OR MORE 02/04/2019 33401-YMOGNML NAIL, 6 OR MORE 06/17/2019 69567-MFYSRVH NAIL, 6 OR MORE 09/27/2019 76454-DCBOCIZ NAIL, 6 OR MORE 01/20/2020 80956-DCTZBPY NAIL, 6 OR MORE 04/27/2020 90642-YAMUCJY NAIL, 6 OR MORE 07/27/2020 01016-NPSGIJJ NAIL, 6 OR MORE 11/02/2020 64974-CTJVCMJ NAIL, 6 OR MORE 05/29/2021 68899-OUEEHFR NAIL, 6 OR MORE 08/27/2021 23530-SBWCWSR NAIL, 6 OR MORE 06/17/2022 11051-TBAIEJF NAIL, 6 OR MORE 03/06/2023 95512-IFWSJHG NAIL, 6 OR MORE 06/12/2023 12300-AMGXZZN NAIL, 6 OR MORE 08/21/2023 78949-YEZSWSM NAIL, 6 OR MORE 11/03/2023 67504-Gwydfxkq Plate 11/03/2023 17336-Doqsmcbv Plate 03/22/2024 84136-Ojgrpywu Plate 01/12/2024 Next Appt Details Provider Name:Julio Pulliam , 09/05/2025 03:00:00 PM, [address] [facility], [place], [address], Insurance Providers Payer Name Payer Address Payer Phone Subscriber Number Group Number Insured Name Patient Relationship to Insured Coverage Start Date Coverage End Date [employer] [address] [place], [place] [address] [phone] [id number] Justice Bonilla Self - patient is the [...] ablation [place] arms skin cancer removal 2021 [facility] 04/2023 Cardiac ablation for A - Fib Tooth extraction Hospitalization History Reason Date(Month/Year) Dehydration 05/2020 [facility] A Fib 4- days 11/2022 [facility] - Spider Bite - given Antibiotic 05/16 021
--- OUTSIDE RECORDS SUMMARY | 2025-07-19 15:04 | XMS_ITS | Patient Health Record ---
Author Organization [facility] Address [address] [place] [address] Care Team Providers Care Linux Developer Name Role Phone Ted Jauregui Unavailable [phone] Reason For Referral No Information Plan Of Treatment No Information
== END 2025-07-19 13:13 | disposition home or self-care (01) ==
PROVIDERS: PCP Internal Medicine; Visit Provider Physician Assistant
DX: J22 Unspecified acute lower respiratory infection (principal)